=== PATIENT | female | born 1985 | race Caucasian/White ===

== ENCOUNTER 2024-08-21 10:26 | Inpatient (IN) | payer MEDICAID, SELFPAY ==
[2024-08-21 11:06] VITALS: BP 159/79; PULSE 87; RESP 18; TEMP 37; O2SAT 99
[2024-08-21 11:14] LABS: HCT 35.4 % (36.0-46.0); HGB 12.6 g/dL (11.2-15.7); MCH 33.1 pg (27.0-33.0); MCHC 35.6 % (32.0-36.0); MCV 93 fL (80-95); MPV 10.6 fL (8.0-11.0); Platelet Count 177 10^3/uL (130-400); RBC 3.81 10^6/uL (3.93-5.22); RDW 12.4 % (11.7-14.6); RDW-SD 42.5 fL; WBC 9.73 10^3/uL (4.4-10.8)
[2024-08-21 11:34] VITALS: BP 159/79; PULSE 87
--- NOTE | 2024-08-21 11:39 | HPE_ITS ---
Date of service: 08/21/24 Time of Service: 11:40 OB-HPI Labor/Delivery History of Present Illness Reason for Visit: IUFS at 39 Weeks ROSA ELENA Calculator Estimated Delivery Date Method Current WG Current Estimate 08/22/24 LMP (Certain) 39w 6d Other Estimates 08/19/24 Conception 40w 2d History of Present Expected Delivery Route/Plan Planned home with Adriennefallon [facility]ina. Specific Issues/Plan 1. AMA - Taking ASA - Recommended 39wk delivery - pt declined. 2. Migraines 3. Depression/anxiety - Sees therapist occasionally PFSH All Active Problems (Updated 08/21/24 @ 06:21 by Tereas Ray MD) demise, greater than 22 weeks, antepartum (Acute) Social History Smoking/Tobacco Use Status: Never Smoking risk assessment performed?: Yes Alcohol Intake: never Substance use type: does not use Housing: house Do you feel safe at home: Yes Do you feel safe in your relationship?: Yes History History 3 Para 1 Hx # Term Pregnancies 1 Multiple births Hx # Pregnancies Ectopic pregnancies AB induced 1 Hx Number of Living Children 1 AB spontaneous Past Pregnancies Del. Date GA/Weeks # Preg Succ Route Wgt Sex Labor Lgth Anesth esia Location Prov Complic 01/11/19 8 02/11/21 40 No Yes vaginal 7 lb 6 oz Male 20hrs Delivery Date: 01/11/19 Last Updated by: Teresa Ray MD ETOP Delivery Date: 02/11/21 Last Updated by: Teresa Ray MD Home , pushed 1.5hrs Joe Meds Allergies and Home Medications Home Medications ?Medication ?Instructions ?Recorded ?Confirmed ?Type D3 Liquid 25 mcg PO DAILY 08/21/24 08/21/24 History Danilo Nataliya 550 mg PO DAILY 08/21/24 08/21/24 History pyridoxine (vitamin B6) 50 mg 50 mg PO DAILY 08/21/24 08/21/24 History tablet riboflavin (vitamin B2) 400 mg 400 mg PO DAILY 08/21/24 08/21/24 History tablet Exam Physical Exam Vital signs: Pulse BP 87 159/79 H 08/21/24 11:34 08/21/24 11:34 Detailed Labor and Delivery Exam Stovall Score: Cervical Points Exam 0 1 2 3 Dilation Closed 1-2cm 3-4 cm 5-6cm Effacement 0-30% 40-50% 60-70% 80% Consistency Firm Medium Soft Station -3 -2 -1,0 +1,+2 Position Posterior Mid Anterior Results Abnormal Lab Findings: Abnormal Labs 08/21/24 11:05 RBC 3.81 L Hct 35.4 L MCH 33.1 H
--- NOTE | 2024-08-21 11:41 | W.PM.PROGNOT ---
Date of Service Date of service: 08/21/24 Time of Service: 11:41 Subjective Subjective Interval history since last seen: Pt did not sleep well overnight. Upset and concerned about the process that she is about to go through. Exam Narrative Exam Narrative: Pt is a Objective Last Vital Signs Pulse 87 08/21/24 11:34 BP 159/79 H 08/21/24 11:34 Laboratory Results - last 24 hr 08/21/24 11:05 WBC 9.73 RBC 3.81 L Hgb 12.6 Hct 35.4 L MCV 93 MCH 33.1 H MCHC 35.6 RDW 12.4 Plt Count 177 MPV 10.6
--- NOTE | 2024-08-21 12:00 | HPE_ITS ---
Date of service: 08/21/24 Time of Service: 12:00 Assessment and Plan Assessment and plan (1) demise, greater than 22 weeks, antepartum: Status: Acute Assessment and plan: Confirmed by bedside u/s performed on earlier today. Pt was given options for delivery and counseled that IOL with Oxytocin would be advised. We reviewed labor analgesia with pt including Nitrous Oxide and epidural. She would prefer to avoid epidural if possible. (2) Encounter for induction of labor: Status: Acute Assessment and plan: Begin Oxytocin IOL labor. Anticipate vaginal delivery. OB-HPI Labor/Delivery History of Present Illness Reason for Visit: IUFD at 39w6d EGA. Chief Complaint: Other (induction of labor for intrauterine demise at term.). ROSA ELENA Calculator Estimated Delivery Date Method Current WG Current Estimate 08/22/24 LMP (Certain) 39w 6d Other Estimates 08/19/24 Conception 40w 2d History of Present Expected Delivery Route/Plan Planned home with Adrienne Medina [facility] . ROSA ELENA 08/22/24 by LMP and known date of conception. Pt established care at 18w0d EGA. 10 visits. GBS neg. O+. cf DNA low risk for aneuploides and microdeletions. Neg STI. Last FHT 08/15/24 present at visit with practioner. Pt called provider Adrienne Medina and FHR check performed which showed no FHR. Pt evaluated on by Dr. Ray early this morning and IUFD in vtx presentation confirmed. Pt given options for care and was counseled to have IOL. She went home and presents for planned delivery of fetus. Specific Issues/Plan 1. AMA - Taking ASA. cfDNA low risk aneuploidy and microdeletions. - Recommended 39wk delivery - pt declined. 2. Migraines 3. Depression/anxiety - Sees therapist occasionally Informed Consent Informed Consent: Induction of Labor and Risk,Benefits,Alternatives Discussed (Pt counseled that pLTCS is an option but not advised.) Review of Systems Narrative: No vaginal bleeding, no trauma. All systems reviewed & are unremarkable except as noted in HPI and below Psychiatric Psychiatric: Reports anxiety (devestated by the information regarding the demise.) PFSH All Active Problems (Updated 08/21/24 @ 12:30 by Yareli Ahumada MD) Encounter for induction of labor (Acute) demise, greater than 22 weeks, antepartum (Acute) Social History (Updated 08/21/24 @ 12:30 by Yareli Ahumada MD) Smoking/Tobacco Use Status: Never Smoking risk assessment performed?: Yes Alcohol Intake: never Substance use type: does not use Household members: spouse, children and other Details: H - Mehdi, S - Joe Housing: house Number of Children: 1 Education Level: college Do you need help understanding health information?: Never current occupation: [employer]. Do you feel safe at home: Yes Do you feel safe in your relationship?: Yes History History 3 Para 1 Hx # Term Pregnancies 1 Multiple births Hx # Pregnancies Ectopic pregnancies AB induced 1 Hx Number of Living Children 1 AB spontaneous Past Pregnancies Del. Date GA/Weeks # Preg Succ Route Wgt Sex Labor Lgth Anesth esia Location Prov [facility] 01/11/19 8 02/11/21 40 No Yes vaginal 7 lb 6 oz Male 20hrs Delivery Date: 01/11/19 Last Updated by: Teresa Ray MD ETOP Delivery Date: 02/11/21 Last Updated by: Teresa Ray MD Home , pushed 1.5hrs Joe Meds Allergies and Home Medications Home Medications ?Medication ?Instructions ?Recorded ?Confirmed ?Type D3 Liquid 25 mcg PO DAILY 08/21/24 08/21/24 History Danilo Nataliya 550 mg PO DAILY 08/21/24 08/21/24 History pyridoxine (vitamin B6) 50 mg 50 mg PO DAILY 08/21/24 08/21/24 History tablet riboflavin (vitamin B2) 400 mg 400 mg PO DAILY 08/21/24 08/21/24 History tablet Exam Physical Exam Vital signs: Pulse BP 87 159/79 H 08/21/24 11:34 08/21/24 11:34 Vital Signs Reviewed: Yes Narrative: Pt reports BP elevated 2/2 anxiety. BP range nl during . Detailed Labor and Delivery Exam Dilation: 0 Effacement (%): 50 station: -1 Cervix position: mid Consistency: soft Villanueva Score: Cervical Points Exam 0 1 2 3 Dilation Closed 1-2cm 3-4 cm 5-6cm Effacement 0-30% 40-50% 60-70% 80% Consistency Firm Medium Soft Station -3 -2 -1,0 +1,+2 Position Posterior Mid Anterior VILLANUEVA Score(Cervical Ripeness Score): 5 Amniotic Membrane Status: Intact Fetus A Assessment Note: No heart tones will be monitored during IOL 2/2 demise HEENT Exam HEENT Exam: Normal Breast Exam Breast Exam: Not Done Respiratory Exam Respiratory Exam: Normal Cardiovascular Exam Cardiovascular Exam: Normal Abdominal Exam Abdominal Exam: Normal Rectal Exam Rectal Exam: Not Done Exam Exam: Normal Extremities Exam Extremities Exam: Normal Back/Spine/Pelvis Exam Back Exam: Not Done Pelvis Adequate: Yes Skin Exam Skin Exam: Normal Neurological Exam Neurological Exam: Normal Psychiatric Exam Psychiatric Exam: Normal Results Results Group Beta Strep: Negative Blood Type: O+ Rubella Status: Immune Varicella Immunity: Immune Abnormal Lab Findings: Abnormal Labs 08/21/24 11:05 RBC 3.81 L Hct 35.4 L MCH 33.1 H Risk Assessment Risk for Shoulder Dystocia Increased Risk?: No Delivery Plan @ 40 wks: aoc Risk for Post- Hemorrhage At Risk?: No Counseled re: Active Management: No (Will address plan for active management when closer to delivery ) Risks Reviewed Risks Reviewed Upon Admission: Yes
[2024-08-21] MEDS: Normal Saline Flush 10 ML SYR IVP (12:05)
[2024-08-21] MEDS: Oxytocin/Normal Saline 30 UNITS/500 ML BAG IV (12:10)
[2024-08-21] MEDS: Lactated Ringers 1,000 ML 125 ML IV ×2 (12:10→19:36)
[2024-08-21 13:32] VITALS: BP 118/79; PULSE 83
[2024-08-21] MEDS: LORazepam 1 MG TAB PO ×2 (14:12→20:34)
--- NOTE | 2024-08-21 16:00 | W.PM.OBNL1 ---
Date of service: 08/21/24 Time of Service: 16:00 Informed Consent Informed Consent: Induction of Labor and Risk,Benefits,Alternatives Discussed (Pt counseled that pLTCS is an option but not advised.) Pelvic Exam Comments: Discussed with pt if she wanted pelvic exam to assess her labor status. While she is having contractions she does not feel that she is experiencing active labor. . P Contractions Monitor Mode: External Contraction Frequency(min): q4-5 Contraction Duration(sec): 40 Intensity: Mild Assessment and Plan Assessment and plan (1) Encounter for induction of labor: Status: Acute (2) demise, greater than 22 weeks, antepartum: Status: Acute Objective Abnormal lab results 08/21/24 Range/Units 11:05 RBC 3.81 L (3.93-5.22) 10^6/uL Hct 35.4 L (36.0-46.0) % MCH 33.1 H (27.0-33.0) pg Temp Pulse Resp BP Pulse Ox 98.6 F 83 18 118/79 99 08/21/24 11:06 08/21/24 13:32 08/21/24 11:06 08/21/24 13:32 08/21/24 11:06 Laboratory Results WBC 9.73 10^3/uL (4.4-10.8) 08/21/24 11:05 RBC 3.81 10^6/uL (3.93-5.22) L 08/21/24 11:05 Hgb 12.6 g/dL (11.2-15.7) 08/21/24 11:05 Hct 35.4 % (36.0-46.0) L 08/21/24 11:05 MCV 93 fL (80-95) 08/21/24 11:05 MCH 33.1 pg (27.0-33.0) H 08/21/24 11:05 MCHC 35.6 % (32.0-36.0) 08/21/24 11:05 RDW 12.4 % (11.7-14.6) 08/21/24 11:05 Plt Count 177 10^3/uL (130-400) 08/21/24 11:05 MPV 10.6 fL (8.0-11.0) 08/21/24 11:05 ABO/Rh O Positive 08/21/24 11:05 Antibody Screen NEGATIVE 08/21/24 11:05 Vital Signs Reviewed: Yes Objective Narrative Objective Narrative: Pt received a dose of Ativan for increased anxiety. Results Hemoglobin/Hematocrit: Hgb 12.6 g/dL (11.2-15.7) 08/21/24 11:05 Hct 35.4 % (36.0-46.0) L 08/21/24 11:05 Abnormal Lab Findings: Abnormal Labs 08/21/24 11:05 RBC 3.81 L Hct 35.4 L MCH 33.1 H
--- NOTE | 2024-08-21 18:27 | W.PM.OBNL1 ---
Date of service: 08/21/24 Time of Service: 18:27 Informed Consent Informed Consent: Induction of Labor and Risk,Benefits,Alternatives Discussed (Pt counseled that pLTCS is an option but not advised.) Pelvic Exam Dilation: 20 Effacement (%): 70 station: 0 Cervix Position: posterior Consistency: soft Vaginal Exam Presentation: Cephalic Contractions Contraction Frequency(min): q 2-3 Contraction Duration(sec): 50sec Intensity: Mild/Moderate Assessment and Plan Assessment and plan (1) Encounter for induction of labor: Status: Acute Assessment and plan: Plan to continue oxytocin infusion at 18mu/min. When pt achieves SVE 4-5cm dilation with AROM. (2) demise, greater than 22 weeks, antepartum: Status: Acute Qualifiers: Fetus number: single or unspecified fetus Qualified Code(s): O36.4XX0 - Maternal care for intrauterine , not applicable or unspecified Objective Abnormal lab results 08/21/24 Range/Units 11:05 RBC 3.81 L (3.93-5.22) 10^6/uL Hct 35.4 L (36.0-46.0) % MCH 33.1 H (27.0-33.0) pg Temp Pulse Resp BP Pulse Ox 98.6 F 83 18 118/79 99 08/21/24 11:06 08/21/24 13:32 08/21/24 11:06 08/21/24 13:32 08/21/24 11:06 Laboratory Results WBC 9.73 10^3/uL (4.4-10.8) 08/21/24 11:05 RBC 3.81 10^6/uL (3.93-5.22) L 08/21/24 11:05 Hgb 12.6 g/dL (11.2-15.7) 08/21/24 11:05 Hct 35.4 % (36.0-46.0) L 08/21/24 11:05 MCV 93 fL (80-95) 08/21/24 11:05 MCH 33.1 pg (27.0-33.0) H 08/21/24 11:05 MCHC 35.6 % (32.0-36.0) 08/21/24 11:05 RDW 12.4 % (11.7-14.6) 08/21/24 11:05 Plt Count 177 10^3/uL (130-400) 08/21/24 11:05 MPV 10.6 fL (8.0-11.0) 08/21/24 11:05 ABO/Rh O Positive 08/21/24 11:05 Antibody Screen NEGATIVE 08/21/24 11:05 Subjective Patient Reports: New Complaints (increasing intensity of contractions. requesting cervical exam.) Interval history since last seen: Oxytocin infusion 18mu/min. Pt reports H/A, relieved with ASA. Results Hemoglobin/Hematocrit: Hgb 12.6 g/dL (11.2-15.7) 08/21/24 11:05 Hct 35.4 % (36.0-46.0) L 08/21/24 11:05 Abnormal Lab Findings: Abnormal Labs 08/21/24 11:05 RBC 3.81 L Hct 35.4 L MCH 33.1 H
[2024-08-21 19:15] VITALS: RESP 16; TEMP 37.4
[2024-08-21 19:27] VITALS: BP 127/61; PULSE 75
[2024-08-21 22:47] VITALS: BP 129/72; PULSE 82; TEMP 36.9
[2024-08-22] VITALS (83 sets, daily range): BP systolic 86–139; BP diastolic 49–80; PULSE 0–122; RESP 16–20; TEMP 36.6–36.7; O2SAT 97–100
--- NOTE | 2024-08-22 00:02 | W.PM.OBNL1 ---
Date of service: 08/22/24 Time of Service: 00:03 Informed Consent Informed Consent: Induction of Labor and Risk,Benefits,Alternatives Discussed (Pt counseled that pLTCS is an option but not advised.) Contractions Monitor Mode: External Contraction Frequency(min): 3-4 Contraction Duration(sec): 50 Intensity: Mild/Moderate Assessment and Plan Assessment and plan (1) Encounter for induction of labor: Status: Acute Assessment and plan: Discussion with pt regarding plan for analgesia. She does not feel that she requires an epidural at this time. She is open to regional analgesia if needed. I see no reason to increase concetration of Oxytocin since her contractions are regular. She has received two doses of Ativan and is resting. The plan is to continue Oxytocin and once her cervix is more dilated to proceed with AROM. Objective Abnormal lab results 08/21/24 Range/Units 11:05 RBC 3.81 L (3.93-5.22) 10^6/uL Hct 35.4 L (36.0-46.0) % MCH 33.1 H (27.0-33.0) pg Temp Pulse Resp BP Pulse Ox 98.4 F 82 16 129/72 99 08/21/24 22:47 08/21/24 22:47 08/21/24 19:15 08/21/24 22:47 08/21/24 11:06 Laboratory Results WBC 9.73 10^3/uL (4.4-10.8) 08/21/24 11:05 RBC 3.81 10^6/uL (3.93-5.22) L 08/21/24 11:05 Hgb 12.6 g/dL (11.2-15.7) 08/21/24 11:05 Hct 35.4 % (36.0-46.0) L 08/21/24 11:05 MCV 93 fL (80-95) 08/21/24 11:05 MCH 33.1 pg (27.0-33.0) H 08/21/24 11:05 MCHC 35.6 % (32.0-36.0) 08/21/24 11:05 RDW 12.4 % (11.7-14.6) 08/21/24 11:05 Plt Count 177 10^3/uL (130-400) 08/21/24 11:05 MPV 10.6 fL (8.0-11.0) 08/21/24 11:05 ABO/Rh O Positive 08/21/24 11:05 Antibody Screen NEGATIVE 08/21/24 11:05 Vital Signs Reviewed: Yes Objective Narrative Objective Narrative: Vaginal exam deferred. Results Hemoglobin/Hematocrit: Hgb 12.6 g/dL (11.2-15.7) 08/21/24 11:05 Hct 35.4 % (36.0-46.0) L 08/21/24 11:05 Abnormal Lab Findings: Abnormal Labs 08/21/24 11:05 RBC 3.81 L Hct 35.4 L MCH 33.1 H
[2024-08-22] MEDS: Lactated Ringers 1,000 ML 125 ML IV (03:15)
[2024-08-22] MEDS: FentaNYL/ROPIvacaine 2 mcg/ml and 0.1% 200 ML CADD Cassette EP (08:45)
--- NOTE | 2024-08-22 09:09 | W.ANESNEU ---
Epidural/Spinal Catheter Date Performed: 08/22/24 Procedure Start: 08:02 Procedure Stop: 08:35 Requesting Provider: Yareli Ahumada Procedure Location: Obstetrics Reason Performed: Labor Epidural Standard Monitors Applied: Blood Pressure, SpO2 and See EMR for corresponding vital signs Patient Position: Sitting Sedation Given (Indicate Dose Given): No Sedation given Patient Mental Status: Awake Sterility: Hand Hygiene, Surgical Cap, Surgical Mask, Sterile Gloves, Sterile Drape/Sheet, Eye Protection and Chlorhexidine Procedure Location: L4-L5 Interspace Epidural Needle: Tuohy 17 Guage Needle Length: 3.5 Inch Needle Approach: Midline Epidural Procedure: Skin Prepped, Sterile Drape Placed, 1% Lidocaine to skin and subcutaneous tissue with 25G needle, Tuohy Needle placed, AMIE to Saline Used, Epidural Catheter Placed, Negative Heme, Negative CSF Flow and Tuohy Needle Removed Catheter Placed?: Catheter Placed Test Dose (Indicate Dose Given): 3ml 1.5% Lidocaine with 1:200K Epinephrine Given and Negative Test Dose Loss of Resistance Depth (cm): 5 Catheter depth at skin (cm): 12 Dressing: Sorbaview Dressing Placed, Mastisol Used and Dressing reinforced with Tape Epidural Provider Bolus (Indicate Dose Given): None Given Additives (Indicate Dose Given ): None Infusion Medication: Medication Infusion Began Medication Infusion: Ropivacaine 0.1% with Fentanyl 2mcg/ml Maintenance Infusion Rate (ml/hour): 10 PCEA Bolus Dose (ml): 5 Block Level: T7 Paresthesia: None Ultrasound: Not Used Number of Attempts (See previous attempts in note section): 2 Procedure Tolerated: Patient tolerated well and Other (Mild hypotension, resolved with 10mg ephedrine IV ) Procedure Outcome: Successful Procedure Comment:: Epidural placed successfully, two attempts. First attempt - needle and catheter placed without concern at L3/4 inter-space, catheter threaded, upon removing syringe heme back flow appreciated in catheter, catheter retracted 2cm, flushed with saline, line cleared and aspirated which was negative for heme, test dose administered with appreciable increase to heart rate interpreted as positive test dose. Catheter removed. Second attempt at L4/5, catheter placed without complication, s/p test negative test dose. Patient with hypotension 80s/40s, reports lightheadedness. Patient placed supine and given 10mg of Ephedrine IV with resolution of hypotension and no recurrence . Otherwise patient tolerated procedure well and reports increased comfort s/p epidural placement and infusion. Performed By: Eber Oviedo Supervised By: Josesito Shin
[2024-08-22] MEDS: Ondansetron 4 MG/2 ML VIAL IVP (10:31)
--- NOTE | 2024-08-22 11:19 | W.PM.OBNL1 ---
Date of service: 08/22/24 Time of Service: 11:19 Informed Consent Informed Consent: Induction of Labor and Risk,Benefits,Alternatives Discussed (Pt counseled that pLTCS is an option but not advised.) Assessment and Plan Assessment and plan (1) demise, greater than 22 weeks, antepartum: Status: Acute Qualifiers: Fetus number: single or unspecified fetus Qualified Code(s): O36.4XX0 - Maternal care for intrauterine , not applicable or unspecified (2) Encounter for induction of labor: Status: Acute Assessment and plan: Continue labor induction. Risks of delivery, placental delivery, and care all explained to the patient. Chart and labs reviewed. Patient is anticipating vaginal with taking baby home for home burial. technical services specialist is involved for assistance in aftercare as patient desires. Objective Temp Pulse Resp BP Pulse Ox 97.9 F 0 L 16 124/70 98 08/22/24 08:00 08/22/24 11:18 08/22/24 10:15 08/22/24 10:54 08/22/24 10:24 Laboratory Results WBC 9.73 10^3/uL (4.4-10.8) 08/21/24 11:05 RBC 3.81 10^6/uL (3.93-5.22) L 08/21/24 11:05 Hgb 12.6 g/dL (11.2-15.7) 08/21/24 11:05 Hct 35.4 % (36.0-46.0) L 08/21/24 11:05 MCV 93 fL (80-95) 08/21/24 11:05 MCH 33.1 pg (27.0-33.0) H 08/21/24 11:05 MCHC 35.6 % (32.0-36.0) 08/21/24 11:05 RDW 12.4 % (11.7-14.6) 08/21/24 11:05 Plt Count 177 10^3/uL (130-400) 08/21/24 11:05 MPV 10.6 fL (8.0-11.0) 08/21/24 11:05 ABO/Rh O Positive 08/21/24 11:05 Antibody Screen NEGATIVE 08/21/24 11:05 Subjective Interval history since last seen: Patient seen with her , and home registered midwife. We spent approximately 40 minutes in conversation regarding the grief process, the delivery process, further surveillance. All questions regarding her care, delivery, and ongoing health discussed at length. At this point, we will continue Pitocin augmentation. She is comfortable with her epidural. She declines cervical examination at this point. Will continue to monitor for progress and change. She hopes for a gentle . She does not wish baby to be delivered to her immediately. She is also requesting time to process all of the events. All of her questions were answered to the best of my ability today. Results Hemoglobin/Hematocrit: Hgb 12.6 g/dL (11.2-15.7) 08/21/24 11:05 Hct 35.4 % (36.0-46.0) L 08/21/24 11:05 Abnormal Lab Findings: Abnormal Labs 08/21/24 11:05 RBC 3.81 L Hct 35.4 L MCH 33.1 H
--- NOTE | 2024-08-22 13:31 | W.PM.OBNL1 ---
Date of service: 08/22/24 Time of Service: 13:31 Informed Consent Informed Consent: Induction of Labor and Risk,Benefits,Alternatives Discussed (Pt counseled that pLTCS is an option but not advised.) Assessment and Plan Assessment and plan (1) demise, greater than 22 weeks, antepartum: Status: Acute Assessment and plan: demise at 39 weeks 6 days. Labor induction today. Pitocin is at 20. Patient far more uncomfortable despite epidural. Declined cervical examination at this point. Appears to be near to delivery. All questions answered. Support given Qualifiers: Fetus number: single or unspecified fetus Qualified Code(s): O36.4XX0 - Maternal care for intrauterine , not applicable or unspecified (2) Encounter for induction of labor: Status: Acute Objective Temp Pulse Resp BP Pulse Ox 97.9 F 0 L 16 121/67 98 08/22/24 08:00 08/22/24 12:54 08/22/24 11:00 08/22/24 12:24 08/22/24 10:24 Laboratory Results WBC 9.73 10^3/uL (4.4-10.8) 08/21/24 11:05 RBC 3.81 10^6/uL (3.93-5.22) L 08/21/24 11:05 Hgb 12.6 g/dL (11.2-15.7) 08/21/24 11:05 Hct 35.4 % (36.0-46.0) L 08/21/24 11:05 MCV 93 fL (80-95) 08/21/24 11:05 MCH 33.1 pg (27.0-33.0) H 08/21/24 11:05 MCHC 35.6 % (32.0-36.0) 08/21/24 11:05 RDW 12.4 % (11.7-14.6) 08/21/24 11:05 Plt Count 177 10^3/uL (130-400) 08/21/24 11:05 MPV 10.6 fL (8.0-11.0) 08/21/24 11:05 ABO/Rh O Positive 08/21/24 11:05 Antibody Screen NEGATIVE 08/21/24 11:05 Subjective Interval history since last seen: Patient seen, significantly more uncomfortable after position change, voiding, and side-lying. Declines cervical examination at this point. Vital signs are stable. Appears to be transitioning to fully dilated. Would anticipate onset of second stage soon. Results Hemoglobin/Hematocrit: Hgb 12.6 g/dL (11.2-15.7) 08/21/24 11:05 Hct 35.4 % (36.0-46.0) L 08/21/24 11:05 Abnormal Lab Findings: Abnormal Labs 08/21/24 11:05 RBC 3.81 L Hct 35.4 L MCH 33.1 H
--- NOTE | 2024-08-22 14:02 | W.PM.OBNL1 ---
Date of service: 08/22/24 Time of Service: 14:02 Informed Consent Informed Consent: Induction of Labor and Risk,Benefits,Alternatives Discussed (Pt counseled that pLTCS is an option but not advised.) Objective Temp Pulse Resp BP Pulse Ox 97.9 F 81 16 117/57 L 98 08/22/24 08:00 08/22/24 13:54 08/22/24 11:00 08/22/24 13:54 08/22/24 10:24 Laboratory Results WBC 9.73 10^3/uL (4.4-10.8) 08/21/24 11:05 RBC 3.81 10^6/uL (3.93-5.22) L 08/21/24 11:05 Hgb 12.6 g/dL (11.2-15.7) 08/21/24 11:05 Hct 35.4 % (36.0-46.0) L 08/21/24 11:05 MCV 93 fL (80-95) 08/21/24 11:05 MCH 33.1 pg (27.0-33.0) H 08/21/24 11:05 MCHC 35.6 % (32.0-36.0) 08/21/24 11:05 RDW 12.4 % (11.7-14.6) 08/21/24 11:05 Plt Count 177 10^3/uL (130-400) 08/21/24 11:05 MPV 10.6 fL (8.0-11.0) 08/21/24 11:05 ABO/Rh O Positive 08/21/24 11:05 Antibody Screen NEGATIVE 08/21/24 11:05 Subjective Interval history since last seen: Patient seen. Feeling contractions more intensely. Vital signs are stable. Cervical examination per midwifery service is an anterior lip with a bulging bag of water. Would anticipate second stage soon. Preparations in progress. All questions answered. Results Hemoglobin/Hematocrit: Hgb 12.6 g/dL (11.2-15.7) 08/21/24 11:05 Hct 35.4 % (36.0-46.0) L 08/21/24 11:05 Abnormal Lab Findings: Abnormal Labs 08/21/24 11:05 RBC 3.81 L Hct 35.4 L MCH 33.1 H
--- NOTE | 2024-08-22 14:40 | W.PM.OBNL1 ---
Date of service: 08/22/24 Time of Service: 14:40 Informed Consent Informed Consent: Induction of Labor and Risk,Benefits,Alternatives Discussed (Pt counseled that pLTCS is an option but not advised.) Objective Temp Pulse Resp BP Pulse Ox 97.9 F 81 20 117/57 L 98 08/22/24 08:00 08/22/24 13:54 08/22/24 13:00 08/22/24 13:54 08/22/24 10:24 Laboratory Results WBC 9.73 10^3/uL (4.4-10.8) 08/21/24 11:05 RBC 3.81 10^6/uL (3.93-5.22) L 08/21/24 11:05 Hgb 12.6 g/dL (11.2-15.7) 08/21/24 11:05 Hct 35.4 % (36.0-46.0) L 08/21/24 11:05 MCV 93 fL (80-95) 08/21/24 11:05 MCH 33.1 pg (27.0-33.0) H 08/21/24 11:05 MCHC 35.6 % (32.0-36.0) 08/21/24 11:05 RDW 12.4 % (11.7-14.6) 08/21/24 11:05 Plt Count 177 10^3/uL (130-400) 08/21/24 11:05 MPV 10.6 fL (8.0-11.0) 08/21/24 11:05 ABO/Rh O Positive 08/21/24 11:05 Antibody Screen NEGATIVE 08/21/24 11:05 Subjective Interval history since last seen: Patient seen. Painful contractions with some rectal pressure. Patient denies that she has involuntary urge to push. She is fearful of the pushing process. Reassurance was given. Vital signs are stable. Anticipate second stage soon. Results Hemoglobin/Hematocrit: Hgb 12.6 g/dL (11.2-15.7) 08/21/24 11:05 Hct 35.4 % (36.0-46.0) L 08/21/24 11:05 Abnormal Lab Findings: Abnormal Labs 08/21/24 11:05 RBC 3.81 L Hct 35.4 L MCH 33.1 H
--- NOTE | 2024-08-22 16:02 | PLAC_PTH ---
PATIENT: Sultana Driver LOC: OBS U#:[id number] AGE/SX: 39/F ROOM: OBS.300 RE08/21/[address]: Yareli Ahumada : 1985 BED: A DIS: 08/23/2024 SPEC #: [id number] RECD: 08/27/24 12:47 STATUS: CHAI REQ #: [id number] TAMIE: 08/22/24 16:[address]: Yareli Ahumada DEPT: Surgical Specimen RECD BY: Chante Ferreira ENTERED: 08/27/24 12:48 SP TYPE: PLAC OTHR DR: Unknown,Unknown Tissues: 1 - PLACENTA (3RD TRIMESTER) Procedures: GROSS AND MICRO LEVEL 5 Comments: [id number]
[2024-08-22] MEDS: Ibuprofen 600 MG TAB (16:30)
[2024-08-22] MEDS: Acetaminophen 325 MG TAB (16:30)
--- NOTE | 2024-08-22 16:47 | OBVDS_ITS ---
Date of service: 09/18/24 Time of Service: 16:47 OB Labor/ Delivery Information Baby A Delivery Delivery Method: Spontaneaous Presentation: Cephalic Cord Description-Baby A: 3 Vessels, Nuchal Cord and Tight (x2 and body c ord) Amniotic Fluid: Clear Estimated Blood Loss: 100 Delivery Outcome: Stillborn Note: Patient progressed to the point that she was completely dilated after spontaneous rupture of membranes for blood-tinged fluid. With good maternal effort, she pushed the vertex over intact perineum. At the time of delivery, clearly there was no tone. There was nuchal cord x 2 which was tight and delivered through. At the shoulders followed with ease. The remainder of the body was delivered. Three-vessel cord was noted clamped x 2 and cut. Patient received Pitocin for uterine tonicity and had spontaneous delivery in the Hernandez position of an intact placenta. Examination of baby and placenta followed. Placenta was intact with normal-appearing membranes and a three- vessel cord. The infant was a infant with no apparent abnormalities. Working diagnosis would be cord accident. Qualitative blood loss was 100 mL. Mom is stable postdelivery. Baby remains in room for patient and to view, hold, weight and measurement will follow. Providers Doctor: Mildred Rodriguez Guest Experience Specialist: Josesito Shin Nurse: Lisa Munson Labor/Delivery Information Number of Babies in Womb: 1 Steroids Given: None Reason Steroids Not Administered: N/A Group Beta Strep: N/A Antibiotics Administered: No Rubella Status: Immune Blood Type: O+ Varicella Immunity: Immune Maternal Complications: Other Shoulder Dystocia: No Stages of Labor Onset of Labor Date: 08/22/24 Onset of Labor Time: 05:00 ROM Baby A: 08/22/24 ROM Baby A: 15:12 ROM Total Time- Baby A: [id number] Delivery Date-Baby A: 08/22/24 Delivery Time-Baby A: 15:54 Placenta Delivery Date-Baby A: 08/22/24 Placenta Delivery Time-Baby A: 16:02 Labor-Stage 3 Duration: 8 minutes Total Length of Labor-Baby A: 10 hours and 54 minutes Placenta Cultured: Yes Placenta Status: Delivered Baby A Infant Gender: Female Gestational Age in Weeks/Days: 40 Weeks and 0 Days
--- NOTE | 2024-08-22 19:11 | NUR.NOTE ---
This RN spoke with Jalyn at [facility] case #[id number]. Per Jalyn, they are declining at this time. Nursing Note:
[2024-08-22] MEDS: Ibuprofen 600 MG TAB PO (22:10)
[2024-08-22] MEDS: Acetaminophen 325 MG TAB 650 MG PO (22:10)
[2024-08-23 04:00] VITALS: BP 134/74; PULSE 78; RESP 18; TEMP 36.8; O2SAT 99
[2024-08-23] MEDS: Ibuprofen 600 MG TAB PO ×2 (05:09→11:00)
[2024-08-23] MEDS: Acetaminophen 325 MG TAB 650 MG PO ×2 (05:09→11:06)
--- NOTE | 2024-08-23 07:38 | W.PM.OBPNV1 ---
Date of service: 08/23/24 Time of Service: 07:39 Assessment and Plan Assessment and plan (1) Vaginal delivery: Status: Acute Assessment and plan: day #1 status post labor induction and vaginal delivery of a term stillbirth. No indication for reason for demise other than cord entanglement. Baby appears appropriately grown, anatomically normal. Placenta will be sent for examination. Family declined postmortem examination. Burial will be at home. She will be discharged home today with close follow-up and support. She will be seen back in the office as needed but no later than 2 weeks from now. Her supervisor pigment making will also engage in her care. Prescriptions for ibuprofen and small prescription for Ativan sent to the pharmacy. (2) demise, greater than 22 weeks, antepartum: Status: Acute Qualifiers: Fetus number: single or unspecified fetus Qualified Code(s): O36.4XX0 - Maternal care for intrauterine , not applicable or unspecified Subjective Subjective Interval history: Patient seen and examined this morning. Long conversation regarding the events of her , labor, , follow-up care, care. All of her questions were answered. Patient is planning on discharge home today. She and her will take their baby for burial at home. She will have instructions. We discussed the fact that her milk will come in shortly and strategies for medication. She will be seen back in the office in approximately 2 weeks time. Support was given Patient's Mood: Appropriately sad baby status: Stillbirth Exam Physical Exam Vital signs: Temp Pulse Resp BP Pulse Ox 98.2 F 78 18 134/74 99 08/23/24 04:00 08/23/24 04:00 08/23/24 04:00 08/23/24 04:00 08/23/24 04:00 Vital Signs Reviewed: Yes Constitutional Constitutional: no acute distress Comments: Appropriately grieving HEENT Exam HEENT Exam: Normal Respiratory Exam Respiratory Exam: Normal Cardiovascular Exam Cardiovascular Exam: Normal Abdominal Exam Comments: Soft, nontender Fundal Exam Fundus: Below Umbilicus and Firm Extremities Exam Extremity Exam: Normal Skin Exam Skin Exam: Normal Neurological Exam Neurological Exam: Normal Psychiatric Exam Psychiatric Exam: Normal Results Hemoglobin/Hematocrit: Hgb 12.6 g/dL (11.2-15.7) 08/21/24 11:05 Hct 35.4 % (36.0-46.0) L 08/21/24 11:05 Abnormal Lab Findings: Abnormal Labs 08/21/24 11:05 RBC 3.81 L Hct 35.4 L MCH 33.1 H
[2024-08-23 07:40] VITALS: BP 127/84; PULSE 75; RESP 16; TEMP 37; O2SAT 98
--- NOTE | 2024-08-23 07:48 | DSE_ITS ---
Date of service: 08/23/24 Time of Service: 07:48 DS: Diagnosis Discharge Diagnosis (1) Vaginal delivery: Status: Acute Asessment and Plan: day #1 status post labor induction for term stillbirth. Physically doing well. Emotionally grieving appropriately. Will follow-up in the office in 2 weeks. Support given. Patient's home licensing services clerk will continue to follow patient at home. Prescriptions for ibuprofen and Ativan sent to the pharmacy. All questions answered. Awaiting placental pathology (2) demise, greater than 22 weeks, antepartum: Status: Acute Discharge Plan Disposition Patient Disposition: Home Condition: Good Discharge Details Reason For Visit: IUFD at 39w6d EGA. Admit Date/Time: 08/21/24 10:26 Admit Provider: Yareli Ahumada Attending Provider: Yareli Ahumada Primary Care Provider: Unknown,Unknown Hospital Course Hospital Course: Patient has been under the care of home licensing services clerk throughout her . She had a decrease in movement and contact her licensing services clerk. There were no appreciable heart tones. She was brought to the hospital for evaluation. She was initially seen by our service which diagnosed demise. She had time to consider her options and Ryan presented for labor induction. She received Pitocin for labor induction. Over the course of approximately 24 hours she progressed to the point that she was completely dilated. She did have an epidural for pain control after using hydrotherapy in the tub. She went on to the point of delivery with good maternal effort she delivered a stillborn female over an intact perineum. There was evidence of tight nuchal cord x 2 and a body cord which appeared to be contributing to the demise. Placenta delivered spontaneously and was noted to be intact and looking appropriate. There was no abnormality in placentation or cord insertion that could be assessed. Placenta will be for examination. Baby will be taken home for home burial. Patient is doing well in the period. She is grieving appropriately. She is accepting of supportive care. Her pain is well- controlled. Her lochia is physiologic. We did discuss strategies to mitigate milk production. Home Meds and New Rx's Prescriptions: New ibuprofen 800 mg tablet 800 mg PO Q8H PRNQty: 45 1RF lorazepam [Ativan] 0.5 mg tablet 0.5 mg PO TID PRNQty: 10 0RF No Action Danilo Nataliya 550 mg PO DAILY pyridoxine (vitamin B6) 50 mg tablet 50 mg PO DAILY D3 Liquid 25 mcg PO DAILY riboflavin (vitamin B2) 400 mg tablet 400 mg PO DAILY Discharge Instructions Care Plan Goals: Ibuprofen, 800 mg 1 orally every 8 hours as needed for pain. Alternate with Tylenol, 1000 mg every 6 hours as needed pain. Minimal breast stimulation. Cool compresses to the breast. Pelvic rest until seen in the office. Activity:: Pelvic rest Equipment/Supplies:: No Equipment Needed Diet:: As Tolerated Discharge Orders Discharge Orders: Discharge Order (Routine); Ordered 08/23/24 Ordered By: Mildred Rodriguez OB:DS Summary Summary Vaginal Delivery Method: Spontaneaous Episiotomy Description: None Laceration Description: None Laceration Extension: N/A Contraception Discussed Contraception Discussed: No, [place] Infant Gender-Baby A: Female weight: 7 lb 6.697 oz Status at Discharge Functional status at discharge: independent ambulation Overall status at discharge: patient is progressing back to baseline Mental Status: mental status grossly normal Speech and Movement: speech and movement normal Mood: congruent mood Affect: normal affect Quality:SDOH Health Related Social Needs: No Data to Display Exam Physical Exam Vital signs: Temp Pulse Resp BP Pulse Ox 98.2 F 78 18 134/74 99 08/23/24 04:00 08/23/24 04:00 08/23/24 04:00 08/23/24 04:00 08/23/24 04:00 Constitutional Comments: See physical exam from progress note dated 08/23/2024 PFSH All Active Problems Vaginal delivery (Acute) 08/22/2024. Term stillbirth. Labor induction demise, greater than 22 weeks, antepartum (Acute) Full-term demise Social History Smoking/Tobacco Use Status: Never Smoking risk assessment performed?: Yes Alcohol Intake: never Substance use type: does not use Household members: spouse, children and other Details: H - Mehdi, S - Joe Housing: house Number of Children: 1 Education Level: college Do you need help understanding health information?: Never current occupation: [employer]. Do you feel safe at home: Yes Do you feel safe in your relationship?: Yes History History 3 Para 1 Hx # Term Pregnancies 1 Multiple births Hx # Pregnancies Ectopic pregnancies AB induced 1 Hx Number of Living Children 1 AB spontaneous Past Pregnancies Del. Date GA/Weeks # Preg Succ Route Wgt Sex Labor [facility] 02/11/21 40 No Yes vaginal 7 lb 6 oz Male 20hrs Delivery Date: 01/11/19 Last Updated by: Teresa Ray MD ETOP Delivery Date: 02/11/21 Last Updated by: Teresa Ray MD Home , pushed 1.5hrs Joe DS: Data Vitals/I&O Vitals and I&O: Vital Signs Temperature 98.2 F 08/23/24 04:00 Temperature Source Oral 08/23/24 04:00 Pulse 78 08/23/24 04:00 Pulse Rhythm Regular 08/22/24 20:54 Respiratory Rate 18 08/23/24 04:00 Blood Pressure 134/74 08/23/24 04:00 Blood Pressure Mean 94 08/23/24 04:00 Pulse Oximetry 99 08/23/24 04:00 Oxygen Delivery Method Room Air 08/21/24 11:06 Oxygen Flow Rate 0 08/21/24 11:06 Pain Level 3 08/22/24 20:54 Comment Pt requests to left alone for several hours to try to sleep. Vital signs WNL. 08/21/24 22:49 Intake & Output 08/22/24 08/22/24 08/23/24 11:59 23:59 11:59 Intake Total 1911.50 / 3825.00 956.25 / 3825.00 1911.50 / 1911.50 Output Total 2400 / 2400 1000 / 1000 Balance 1911.50 / 1425.00 -1443.75 / 1425.00 912.50 / 912.50 Intake: IV 1911.50 / 3825.00 956.25 / 3825.00 50 / 1911.50 Output: Urine 2400 / 2400 1000 / 1000 Other: Urine Color Yellow Light Callie Urine Appearance Clear Urine Odor None Comment Up to bedside commode with assist from RN and support people
--- NOTE | 2024-08-23 14:03 | W.ANESPOSTOP ---
Postoperative Evaluation Date, Time and Location Date Performed: 08/23/24 Time Performed: 12:01 Patient Location: Obstetrics Vital Signs Most Recent Imported Vital Signs: Most Recent Vital Signs Temp Pulse Resp BP Pulse Ox 37.0 C 75 16 127/84 98 08/23/24 07:40 08/23/24 07:40 08/23/24 07:40 08/23/24 07:40 08/23/24 07:40 Pain Score Most Recent Pain Score: Most Recent Pain Score Pain Level [Abdomen] 3 08/22/24 20:54 Pain Level 3 08/23/24 11:06 Assessment Mental Status: Awake (Alert & Oriented to Patient Baseline) Airway and Respiratory Function: Patent airway with normal (patient baseline) respiratory exam Cardiovascular Function: Hemodynamically Stable Hydration Status: Adequately Hydrated Nausea & Vomiting: No Nausea or Vomiting Pain: Pain is tolerable per patient Peripheral Nerve Block: Patient did not receive a nerve block Postoperative Comments:: Per OB RN, patient is requesting to not see any more providers and just go home. Honored patient's wishes and obtained report from nurses.
== END 2024-08-23 12:15 | disposition home or self-care (01) | DRG 806 ==
PROVIDERS: Admitting Provider Obstetrics & Gynecology Gynecology; Visit Provider Obstetrics & Gynecology Gynecology
DX: O36.4XX0 Maternal care for intrauterine death, not applicable or unspecified (principal); O99.354 Diseases of the nervous system complicating childbirth; Z37.1 Single stillbirth; Z3A.40 40 weeks gestation of pregnancy; F41.8 Other specified anxiety disorders; G43.909 Migraine, unspecified, not intractable, without status migrainosus; O99.344 Other mental disorders complicating childbirth
CPT/HCPCS: 85027; 86850; 86900; 86901; 88307; J2405

== ENCOUNTER 2024-09-03 18:04 | Outpatient (CLI) | payer MEDICAID, SELFPAY ==
--- OUTSIDE RECORDS SUMMARY | 2024-09-03 18:06 | XMS_ITS | Encounter Summary ---
Author Organization [facility] Address [address] [place] [address] Care Team Providers Care Apprentice Embalmer Name Role Phone Mauricio Solomon ND Primary Care Provider + Encounter Details Date Type Department Care Team (Late st Contact Info) Description 08/27/2024 Lab Requisition [facility] Pathology & Laboratory Medicine - [facility] [address] [place] [address] Mildred Rodriguez [address] [place] [address] [place] [phone] Maternal care for intrauterine , not applicable or unspecified Social History Tobacco Use Types Packs/Day Years Used Date Smoking Tobacco: Never Passive Smoke Exposure: Current Smokeless Tobacco: Never Passive Exposure Comments:pa rtner smokes outside, mother smoked when pt was child Interpersonal Safety Answer Date Record ed Physically Hurt Never 02/18/2021 Verbally Threaten Not on file 02/18/2021 Comments Yes Sex and Gender Information Value Date Recorded Sex Assigned at Not on file Gender Identity Female 01/29/2024 13:24 EDT Sexual Orientation Not on file documented as of this encounter Plan of Treatment Upcoming Encounters Date Type Department Care Team (Late st Contact Info) Description 11/18/2024 15:15 EST Telemedicine [facility] Neurology - [address] [id number] Tracy Fuller, SHADE BANDER 1 [facility], Level [address] [place] [phone] Pending Results Name Type Priority Associated Diagnoses Date /Time SURGICAL PATHOLOGY Pathology Today Maternal care for intrauterine , not applicable or unspecified 08/22/2024 16:02 EDT documented as of this encounter Visit Diagnoses Diagnosis Maternal care for intrauterine , not applicable or unspecified documented in this encounter Care Teams Apprentice Embalmer Relationship Specialty Start Date End Date Mauricio Solomon ND [address] [place] [address],[address] [place] [phone] PCP - General 01/29/24 documented as of this encounter
--- OUTSIDE RECORDS SUMMARY | 2024-09-03 18:06 | XMS_ITS | Encounter Summary ---
Author Organization [facility] Address [address] [place] [address] Care Team Providers Care Associate Director Of Development Name Role Phone Mauricio Solomon ND Primary Care Provider + Reason for Visit * Reason Comments Nasal Congestion Encounter Details Date Type Department Care Team (Late st Contact Info) Description 03/06/2024 13:30 EDT Walk-In [facility] [address] [place] [id number] Keith Malcolm NP [address] [facility] [address] [place], [place] [id number] Rhinosinusitis (Primary Dx) Social History Tobacco Use Types Packs/Day Years [...] on file documented as of this encounter Last Filed Vital Signs Vital Sign Reading Time Taken Comments Blood Pressure 116/76 03/06/2024 1343 EDT Pulse 88 03/06/2024 1343 EDT Temperature 37.1 ??C (98.7 ??F) 03/06/2024 1343 EDT Respiratory Rate 18 03/06/2024 1343 EDT Oxygen Saturation 98% 03/06/2024 1343 EDT Inhaled Oxygen Concentration - - Weight - - Height - - Body Mass Index - - documented in this encounter Patient Instructions * Attachments The following attachments cannot be sent through Care Everywhere. * Sinusitis: Acute (Cameroonian) documented in this encounter Ordered Prescriptions Prescription Sig Dispensed Refills Start Date End Da te amoxicillin-clavulanate (AUGMENTIN) 875-125 mg per tabletIndications:Rhinosi nusitis Take 1 Tablet by mouth 2 times daily for 7 days. 14 Tablet 03/06/2024 03/13/2024 documented in this encounter Progress Notes * Teresa Gutierrez RN - 03/06/2024 1330 EDT CC/HPI: Patient presents with nasal congestion x 2 days, headaches, face, and teeth pain. She had flu like symptoms 2 week prior and was starting to feel better. She is 15 weeks . Covid Screening: In the last 72 hours, has the patient had: New or unusual cough, shortness of breath, new nasal congestion, sore throat, fever, chills, body aches, or new loss of taste or smell without a reasonable alternative diagnosis*? (If yes, assign to ARC)- In the past 10 days, has the patient had a positive Covid test OR a confirmed close Covid exposure (<6ft for > 15mins in 24hr period)? (if yes, assign to ARC, regardless of vaccination status)- *may be determined by RN or in discussion with available provider (BELT PRESS OPERATOR's and CCA's can defer to Charge Nurse to complete triage when appropriate) PCP: Mauricio Solomon * Keith Malcolm NP - 03/06/2024 1330 EDT [facility] Chief Complaint(s): Nasal Congestion Assessment & Plan: 1. Rhinosinusitis Sultana is a pleasant 38-year-old female, 15 weeks , presenting with acute rhinosinusitis. Clinically, she has a left maxillary ABRS. UTD guidelines are that Augmentin is widely used for URIs in people. She denies any known risks for pre-term delivery. Continued supportive measures are discussed. Probiotics with antibiotics. Follow up recommended for symptoms not turning a corner in 2-3 days, or sooner for worsening or newsymptoms, or those that do not clear with treatment. - amoxicillin-clavulanate (AUGMENTIN) 875-125 mg per tablet; Take 1 Tablet by mouth 2 times daily for 7 days. Dispense: 14 Tablet; Refill: 0 An appropriate medical screening examination was performed. The patient was assessed prior to discharge and deemed stable for discharge home. HPI: Sultana presents to [facility] with her toddler for evaluation of worsening URI symptoms. She reports that the whole household was ill with a bad virus, onset 2 weeks ago. Symptoms were largely improving: less congestion, resolved cough. No fever. Then in the last couple days she had a change to her nasal congestion: thicker, harder to shift, and she was having increased pressure in the left sinuses, and pain in her left upper teeth. PO normal. Nonsmoker. 15 weeks . The history is provided by the patient. Sinusitis This is a new problem. The current episode started 1 to 4 weeks ago. There has been no fever. Associated symptoms include congestion (harder to clear, worse on the left side), headaches and sinus pressure (left dental pain). Pertinent negatives include no chills or ear pain. Past treatments includeacetaminophen (lots of fluids, echinachea, tea). The treatment provided no relief. I have reviewed current problem list and current medications. ROS: See HPI for details Review of Systems Constitutional: Negative for chills. HENT: Positive for congestion (harder to clear, worse on the left side) and sinus pressure (left dental pain). Negative for ear pain. Neurological: Positive for headaches. Examination: Vitals: BP 116/76 (BP Cuff Location: Left arm, BP Patient Position: Sitting, BP Cuff Sizes: Adult, regular) Pulse 88 Temp 37.1 ??C (98.7 ??F) (Oral) Resp 18 SpO2 98% Physical Exam Vitals and nursing note reviewed. Constitutional: General: She is not in acute distress. Appearance: She is not ill-appearing or diaphoretic. HENT: Head: Atraumatic. Jaw: No trismus. Right Ear: Tympanic membrane and ear canal normal. Left Ear: Tympanic membrane and ear canal normal. Nose: Congestion present. Right Turbinates: Swollen. Left Turbinates: Swollen. Left Sinus: Maxillary sinus tenderness present. Mouth/Throat: Lips: [place]. Mouth: Mucous membranes are moist. Pharynx: Oropharynx is clear. Pulmonary: Effort: Pulmonary effort is normal. Musculoskeletal: Cervical back: Normal range of motion and neck supple. No tenderness. Lymphadenopathy: Cervical: No cervical adenopathy. Skin: General: Skin is warm and dry. Neurological: Mental Status: She is alert. Psychiatric: Mood and Affect: Mood normal. Behavior: Behavior normal. Behavior is cooperative. Data reviewed (past results):Reviewed and/or ordered active problem list, medication list, allergies This note may be in part documented using [employer] dictation software. Please forgive any errors, omissions or typos that may result from use of dictation. Patient/guardian verbally consented to the use of any clinical photography obtained in the visit today for the purposes of diagnosis, treatment or identification of the patient. documented in this encounter Plan of Treatment Upcoming Encounters Date Type Department Care Team (Late st Contact Info) Description 11/18/2024 15:15 EST Telemedicine [facility] Neurology - [address] [place] [address] [address] [place] [address] Tracy Fuller NP 1 [facility], [address] [place] [phone] documented as of this encounter Visit Diagnoses Diagnosis Rhinosinusitis- Primary Unspecified sinusitis (chronic) documented in this encounter Care Teams Associate Director Of Development Relationship Specialty Start Date End Date Mauricio Solomon ND [address] [place] [address],[address] [place] [phone] PCP - General 01/29/24 documented as of this encounter
--- OUTSIDE RECORDS SUMMARY | 2024-09-03 18:06 | XMS_ITS | Encounter Summary ---
Author Organization [facility] Address [address] [place] [address] Care Team Providers Care Project Development Manager Name Role Phone Mauricio Solomon ND Primary Care Provider + Encounter Details Date Type Department Care Team (Late st Contact Info) Description 02/09/2024 Lab Requisition [facility] Pathology & Laboratory Medicine - [facility] [address] [place], [place] [phone] Outr Resulting Lab, Provider Social History Tobacco Use Types Packs/Day Years [...] Contact Info) Description 11/18/2024 15:15 EST Telemedicine [facility] Neurology - [address] [place] [address] [place], [place] [phone] Tracy Fuller NP 1 [facility], [address] [place] [phone] documented as of this encounter Procedures Procedure Name Priority Date/Time Associated Diagnosis Comments HIV 1/2 ANTIGEN AND ANTIBODY, 4TH GENERATION Routine 02/09/2024 14:38 EDT documented in this encounter Results * HIV 1/2 ANTIGEN AND ANTIBODY, 4TH GENERATION (02/09/2024 14:38 EDT) HIV 1 and 2 Antibody/p24 Antigen, 4th Generation Negative Negative 02/09/2024 23:13 EDT [facility] Comment:If acute HIV-1 infec tion is suspected in a high risk patient, submit plasma specimen for HIV-1 RNA quantitation test. Blood VENOUS BLOOD / Unknown 02/09/2024 14:38 EDT 02/09/2024 22:01 EDT Narrative [facility] - 02/09/2024 23:13 EDT Fourth Generation assay performed on the Siemens Centaur XPT. Provider Outr Resulting Lab IMMUNOLOGY A ND SEROLOGY ORDERABLES [facility] [address] [place] [address] documented in this encounter Visit Diagnoses Not on filedocumented in this encounter Care Teams Project Development Manager Relationship Specialty Start Date End Date Mauricio Solomon ND [address] [place] [address],[address] [place] [phone] PCP - General 01/29/24 documented as of this encounter
--- OUTSIDE RECORDS SUMMARY | 2024-09-03 18:06 | XMS_ITS | Encounter Summary ---
Author Organization [facility] Address [address] [place] [address] Care Team Providers Care Rate Analyst Name Role Phone Mauricio Solomon ND Primary Care Provider + Encounter Details Date Type Department Care Team (Late st Contact Info) Description 02/09/2024 Lab Requisition [facility] Pathology & Laboratory Medicine - [facility] [address] [place], [place] [address] Outr Resulting Lab, Provider Social History Tobacco [...] Contact Info) Description 11/18/2024 15:15 EST Telemedicine [facility] Neurology - [address] [place], [place] [address] Tracy Fuller NP [address] [place] [address], [address] [place] [phone] documented as of this encounter Procedures Procedure Name Priority Date/Time Associated Diagnosis Comments THYROID ANTIBODIES Routine 02/09/2024 14 :38 EDT documented in this encounter Results * THYROID ANTIBODIES (02/09/2024 14:38 EDT) Anti-Thyroglobulin <15 <=60 U/mL 2023 22:35 EDT [facility] Thyroperoxidase Ab 36 <=60 U/mL 2023 22:35 EDT [facility] Blood VENOUS BLOOD / Unknown 02/09/2024 14:38 EDT 02/09/2024 22:01 EDT Provider Outr Resulting Lab CHEMISTRY & BLOOD GAS ORDERABLES Performing Organization Address City/State/[facility] Co de Phone Number [facility] [address] [place] [phone] documented in this encounter Visit Diagnoses Not on filedocumented in this encounter Care Teams Rate Analyst Relationship Specialty Start Date End Date Mauricio Solomon ND [address] [place] [address],[address] [place] [address] PCP - General 01/29/24 documented as of this encounter
--- OUTSIDE RECORDS SUMMARY | 2024-09-03 18:06 | XMS_ITS | Encounter Summary ---
Author Organization [facility] Address [address] [place] [address] Care Team Providers Care Oracle Ebs Architect Name Role Phone Mauricio Solomon ND Primary Care Provider + Encounter Details Date Type Department Care Team (Late st Contact Info) Description 02/09/2024 Lab Requisition [facility] Pathology & Laboratory Medicine - [facility] [address] [place], [place] [address] Outr Resulting Lab, Provider Social History Tobacco [...] Info) Description 11/18/2024 15:15 EST Telemedicine [facility] Neurology - [address] [place] [place], [place] [address] Tracy Fuller NP [address] [place] [address], [address] [place] [phone] documented as of this encounter Procedures Procedure Name Priority Date/Time Associated Diagnosis Comments HEPATITIS C AB W REFLEX TO HCV RNA BY PCR Routine 02/09/2024 14:38 EDT documented in this encounter Results * HEPATITIS C AB W REFLEX TO HCV RNA BY PCR (02/09/2024 14:38 EDT) Hep C Antibody Negative Negative 02/09/2024 23:15 EDT [facility] Blood VENOUS BLOOD / Unknown 02/09/2024 14:38 EDT 02/09/2024 22:01 EDT Provider Outr Resulting Lab CHEMISTRY & BLOOD GAS ORDERABLES [facility] [address] [place] [address] documented in this encounter Visit Diagnoses Not on filedocumented in this encounter Care Teams Oracle Ebs Architect Relationship Specialty Start Date End Date Mauricio Solomon ND [address] [place] [phone] PCP - General 01/29/24 documented as of this encounter
--- OUTSIDE RECORDS SUMMARY | 2024-09-03 18:06 | XMS_ITS | Encounter Summary ---
Author Organization [facility] Address [address] [place] [address] Care Team Providers Care Flotation Operator Name Role Phone Mauricio Solomon ND Primary Care Provider + Encounter Details Date Type Department Care Team (Late st Contact Info) Description 02/09/2024 Lab Requisition [facility] Pathology & Laboratory Medicine - [facility] [address] [place], [place] [address] Outr Resulting Lab, Provider Social History Tobacco [...] Contact Info) Description 11/18/2024 15:15 EST Telemedicine [facility] Neurology - [address] [place] [address] [place], [place] [address] Tracy Fuller NP [address] [place] [address], [address] [place] [phone] documented as of this encounter Procedures Procedure Name Priority Date/Time Associated Diagnosis Comments RUBELLA IGG ANTIBODY Routine 02/09/2024 14:38 EDT documented in this encounter Results * RUBELLA IGG ANTIBODY (02/09/2024 14:38 EDT) Rubella IgG Ab Negative See Note 02/12/2024 11:14 EDT [facility] Comment:Sample is considered negative for IgG antibodies to Rubella virus. A negative result presumes that immunity has not been acquired. If exposure to Rubella virus is suspected despite a negative finding, a second specimen should be collected and tested for Rubella IgG Ab one or two weeks later. Blood VENOUS BLOOD / Unknown 02/09/2024 14:38 EDT 02/09/2024 22:01 EDT Provider Outr Resulting Lab CHEMISTRY & BLOOD GAS ORDERABLES [facility] [address] [place], [place] [phone] documented in this encounter Visit Diagnoses Not on filedocumented in this encounter Care Teams Flotation Operator Relationship Specialty Start Date End Date Mauricio Solomon ND [address] [place] [address],[address] [place] [address] PCP - General 01/29/24 documented as of this encounter
--- OUTSIDE RECORDS SUMMARY | 2024-09-03 18:06 | XMS_ITS | Referral Summary ---
Author Organization [facility] Address [address] [place] [address] Care Team Providers Care Income Tax Expert Name Role Phone CarolineMauricio calles ND Primary Care Provider + Encounters Date Type Department Care Team Description 08/27/2024 Lab Requisition [facility] Pathology & Laboratory Medicine - [facility] [address] [place] [address] Mildred Rodriguez Maternal care for intrauterine , not applicable or unspecified 07/23/2024 Telephone [facility] Neurology [address] [phone] Tracy Fuller NP Appointment Related 07/18/2024 10:00 EDT Telemedicine [address] [phone] Olinda Matt MD Migraine without aura and without status migrainosus, not intractable (Primary Dx) 06/14/2024 Telephone [facility] Neurology [address] [phone] Unknown, ProviderMD Appointment Related (New Patient Visit) from Last 3 Months Allergies No known active allergies Medications Medication Sig Dispensed Refills Start Date End Date Status pyridoxine, vitamin B6, (VITAMIN B6) 50 mg tablet Take 1 Tablet by mouth daily. Active Cholecalciferol, Vitamin D3, (VITAMIN D3) 50 mcg capsule Take 1 Capsule by mouth daily. Active docosahexaenoic acid (DHA ORAL) Take 500 mg by mouth daily. Active PNV 119-iron fum-folic acid 29 mg iron- 1 mg tablet Take 1 Tablet by mouth daily. Innate brand Active MAGNESIUM GLYCINATE ORAL Take 400-800 mg by mouth daily. Active no115/iron/folic acid ( 19 ORAL) Take by mouth daily. Active BABY ASPIRIN ORAL Take by mouth daily. Active eletriptan (RELPAX) 20 mg tablet Take 1 Tablet by mouth as needed for Migraine. Take 1/2 tab the first time to ensure tolerability. May repeat in 2 hours if necessary. Total daily dose 80 mg per day. Limit 8 treatment days per week. 9 Tablet 1 07/18/2024 Active metoclopramide HCl (REGLAN) 5 mg tablet Take 1 Tablet by mouth 2 times daily as needed for Nausea. 20 Tablet 3 07/18/2024 Active Social History Tobacco Use Types Packs/Day Years Used Date Smoking Tobacco: Never Passive Smoke Exposure: Current Smokeless Tobacco: Never Tobacco Cessation:Counseling Given: Not Answered Passive Exposure Comments:partner smokes outside, mother smoked when pt was child Interpersonal Safety Answer Date Record ed Physically Hurt Never 02/18/2021 Verbally Threaten Not on file 02/18/2021 Comments Yes Sex and Gender Information Value Date Recorded Sex Assigned at Not on file Gender Identity Female 01/29/2024 13:24 EDT Sexual Orientation Not on file Last Filed Vital Signs Vital Sign Reading Time Taken Comments Blood Pressure 116/76 03/06/2024 1343 EDT Pulse 88 03/06/2024 1343 EDT Temperature 37.1 ??C (98.7 ??F) 03/06/2024 1343 EDT Respiratory Rate 18 03/06/2024 1343 EDT Oxygen Saturation 98% 03/06/2024 1343 EDT Inhaled Oxygen Concentration - - Weight 68.9 kg (152 lb) 02/02/2024 1547 EDT Height 174.1 cm (5' 8.54) 02/02/2024 1547 EDT Body Mass Index 22.75 02/02/2024 1547 EDT Plan of Treatment Upcoming Encounters Date Type Department Care Team (Late st Contact Info) Description 11/18/2024 15:15 EST Telemedicine [facility] Neurology - [address] [place] [address] [place] [address] Tracy Fuller NP [address] [place] [address] [address] [place] [phone] Procedures Procedure Name Priority Date/Time Associated Diagnosis Comments HEPATITIS C AB W REFLEX TO HCV RNA BY PCR Routine 02/09/2024 14:38 EDT from Last 3 Months or Most Recently Relevant to Health Maintenance Results * HEPATITIS C AB W REFLEX TO HCV RNA BY PCR (02/09/2024 14:38 EDT) Hep C Antibody Negative Negative 02/09/2024 23:15 EDT [facility] Blood VENOUS BLOOD / Unknown 02/09/2024 14:38 EDT 02/09/2024 22:01 EDT Provider Outr Resulting Lab CHEMISTRY & BLOOD GAS ORDERABLES [facility] [address] [place] [address] from Last 3 Months or Most Recently Relevant to Health Maintenance Care Teams Income Tax Expert Relationship Specialty Start Date End Date Mauricio Solomon ND [address] [place] [address],[facility] [address] [place] [address] PCP - General 01/29/24
--- OUTSIDE RECORDS SUMMARY | 2024-09-03 18:06 | XMS_ITS | Clinical Summary ---
Author Organization [facility] Address [address] [place] [address] Care Team Providers Care Salt Maker Name Role Phone Mauricio Solomon ND Primary Care Provider + Allergies No known active allergies Medications Medication [...] for Nausea. 20 Tablet 3 07/18/2024 Active Encounters Date Type Department Care Team Description 08/27/2024 Lab Re[address] [facility] Pathology & Laboratory Medicine - [facility] [address] [place] [address] Mildred Rodriguez Maternal care for intrauterine , not applicable or unspecified 07/23/[address] [facility] Neurology [address] [phone] Tracy Fuller NP Appointment Related 07/18/2024 10:00 EDT Telemedicine [address] [phone] Olinda Matt MD Migraine without aura and without status migrainosus, not intractable (Primary Dx) 06/14/[address] [phone] Unknown, Provider, Appointment Related (New Patient Visit) from Last 3 Months Social History Tobacco Use Types Packs/Day Years [...] 13:24 EDT Sexual Orientation Not on file Obstetrics History Para Term AB IAB SAB Ectopic Multiple Livin g Live Births 1 Date Outcome GA Total Labor Labor/2nd/3rd Weight Sex Type Anes PTL Luz Elena A1 A5 Name Clin Current Last Filed Vital Signs Vital Sign Reading [...] Description 11/18/2024 15:15 EST Telemedicine [facility] Neurology - [address] [place] [address] Tracy Fuller NP 1 [facility], [address] [place] [address] Health Maintenance Due Date Last Done Comments Hepatitis B Vaccine (1 of 3 - 19+ 3-dose series) 05/02 COVID-19 Vaccine ( season) 2024 RSV Immunization ( o r 60+ Years) (1 - 1-dose 60+ series) 2043 Hepatitis C Screen Completed 02/09/2024 Procedures Procedure Name Priority Date/Time Associated Diagnosis Comments HEPATITIS C AB W REFLEX TO HCV RNA BY PCR Routine 02/09/2024 14:38 EDT from Last 3 Months or Most Recently Relevant to Health Maintenance Results * HEPATITIS C AB W REFLEX TO HCV RNA BY PCR (02/09/2024 14:38 EDT) Hep C Antibody Negative Negative 02/09/2024 23:15 EDT [facility] Blood VENOUS BLOOD / Unknown 02/09/2024 14:38 EDT 02/09/2024 22:01 EDT Provider Outr Resulting Lab CHEMISTRY & BLOOD GAS ORDERABLES [facility] [address] [place], [place] [address] from Last 3 Months or Most Recently Relevant to Health Maintenance Care Teams Salt Maker Relationship Specialty Start Date End Date Mauricio Solomon ND [address] [place] [address],[address] [place] [phone] PCP - General 01/29/24
--- OUTSIDE RECORDS SUMMARY | 2024-09-03 18:06 | XMS_ITS | Encounter Summary ---
Author Organization [facility] Address [address] [place] [address] Care Team Providers Care Cherry Grower Name Role Phone Mauricio Solomon ND Primary Care Provider + Encounter Details Date Type Department Care Team (Late st Contact Info) Description 02/14/2024 Lab Requisition [facility] Pathology & Laboratory Medicine - [facility] [address] [place], [place] [address] Outr Resulting Lab, Provider Social History Tobacco [...] Contact Info) Description 11/18/2024 15:15 EST Telemedicine [facility] Neurology - [address] [place] [address] [place], [place] [address] Tracy Fuller NP [address] [place] [address], [address] [place] [phone] documented as of this encounter Procedures Procedure Name Priority Date/Time Associated Diagnosis Comments CHLAMYDIA/N. GONORRHOEAE AMPLIFIED NUCLEIC ACID Routine 02/14/2024 13:00 EDT documented in this encounter Results * CHLAMYDIA/N. GONORRHOEAE AMPLIFIED RNA (02/14/2024 13:00 EDT) Neisseria gonorrhoeae Result Negative Negative 02/15/2024 13:35 EDT [facility] Chlamydia trachomatis Result Negative Negative 02/15/2024 13:35 EDT [facility] Swab VAGINAL STRUCTURE / Unknown 02/14/2024 13:00 EDT 02/14/2024 21:35 EDT Provider Outr Resulting Lab MICROBIOLOGY - GENERAL ORDERABLES Performing Organization Address City/State/[facility] Co de Phone Number [facility] [address] [place] [address] documented in this encounter Visit Diagnoses Not on filedocumented in this encounter Care Teams Cherry Grower Relationship Specialty Start Date End Date Mauricio Solomon ND [address] [place] [address],[address] [place] [address] PCP - General 01/29/24 documented as of this encounter
--- OUTSIDE RECORDS SUMMARY | 2024-09-03 18:06 | XMS_ITS | Encounter Summary ---
Author Organization [facility] Address [address] [place] [address] Care Team Providers Care Bow Making Machine Operator Name Role Phone Mauricio Solomon ND Primary Care Provider + Reason for Visit * Reason Onset Date Comments Appointment Related 06/14/2024 New Patient Visit Encounter Details Date Type Department Care Team ([facility] st Contact Info) Description 06/14/2024 Telephone [facility] Neurology - S [address] [phone] Unknown, Provider, Appointment Related (New Patient Visit) Social History Tobacco Use Types Packs/Day Years [...] on file documented as of this encounter Miscellaneous Notes * Telephone Encounter - Radha Barreto - 07/12/2024 1208 EDT Sultana calls back to schedule NPV with the headache clinic. Scheduled her for 07/17/24 at 10:[address] Matt via [email or web address]. Assigned referral to theappointment. Sent TierPM sign up link to [email or web address] and provided MyChart Support line info if needed. * Telephone Encounter - Radha Barreto - 06/14/2024 1301 EDT LM for Sultana to schedule NPV with headache clinic. Upon callback, please schedule as noted below and assign the referral: NPV via My Chart Televideo Extended with Shaka Cook Regan or Leonard OR NPV in person Shaka or Bobo documented in this encounter Plan of Treatment Upcoming Encounters Date Type Department Care Team ([facility] st Contact Info) Description 11/18/2024 15:15 EST Telemedicine [facility] Neurology - [address] [place] [address] [place], [place] [address] Tracy Fuller, SOD CUTTER 1 [facility], [address] [place] [address] documented as of this encounter Visit Diagnoses Not on filedocumented in this encounter Care Teams Bow Making Machine Operator Relationship Specialty Start Date End Date Mauricio Solomon ND [address] [place] [address],[address] [place] [address] PCP - General 01/29/24 documented as of this encounter
--- OUTSIDE RECORDS SUMMARY | 2024-09-03 18:06 | XMS_ITS | Encounter Summary ---
Author Organization [facility] Address [address] [place] [address] Care Team Providers Care Lab Head Name Role Phone Mauricio Solomon ND Primary Care Provider + Encounter Details Date Type Department Care Team (Late st Contact Info) Description 02/09/2024 Lab Requisition [facility] Pathology & Laboratory Medicine - [facility] [address] [place], [place] [address] Outr Resulting Lab, Provider Social History Tobacco [...] Contact Info) Description 11/18/2024 15:15 EST Telemedicine [facility] Neurology - [address] [place] [address] [place], [place] [address] Tracy Fuller NP [address] [place] [address] [address] [place] [phone] documented as of this encounter Procedures Procedure Name Priority Date/Time Associated Diagnosis Comments SYPHILIS SEROLOGY Routine 02/09/2024 14: 38 EDT documented in this encounter Results * SYPHILIS SEROLOGY (02/09/2024 14:38 EDT) Syphilis Serology Negative Negative 02/12/2024 10:58 EDT [facility] Blood VENOUS BLOOD / Unknown 02/09/2024 14:38 EDT 02/09/2024 22:01 EDT Provider Outr Resulting Lab IMMUNOLOGY A ND SEROLOGY ORDERABLES [facility] [address] [place] [address] documented in this encounter Visit Diagnoses Not on filedocumented in this encounter Care Teams Lab Head Relationship Specialty Start Date End Date Maruicio Solomon ND [address] [place] [address],[address] [place] [phone] PCP - General 01/29/24 documented as of this encounter
--- OUTSIDE RECORDS SUMMARY | 2024-09-03 18:06 | XMS_ITS | Encounter Summary ---
Author Organization [facility] Address [address] [place] [address] Care Team Providers Care Child Care Centre Manager Name Role Phone Mauricio Solomon ND Primary Care Provider + Reason for Visit * Reason Comments New Patient Visit Telemedicine Video Visit * Referral (Routine) - Authorization Not Required Specialty Diagnoses / Procedures Referred By Kim dickerson Referred To Contact Neurology Diagnoses Migraine with aura, not intractable, without status migrainosus Mauricio Solomon ND [address] [place] [address],[address] [place] [address] Praveena Cook, DO [address] [place] [phone] Referral ID Status Reason Start Date Expiration Date Visits Requested Visits Authorized [id number] Authorization Not Required 1 1 Encounter Details Date Type Department Care Team (Late st Contact Info) Description 07/18/2024 10:00 EDT Telemedicine [facility] Neurology - [address] [id number] Olinda Matt MD [address] [place] [phone] Migraine without aura and without status migrainosus, not intractable (Primary Dx) Social History Tobacco Use Types [...] on file documented as of this encounter Patient Instructions * Patient Instructions* Olinda Matt MD - 07/18/2024 10:00 EDT Acute treatment: - After delivery, start eletriptan 20 mg tablets. Take 1/2 the first time to evaluate whether you have side effects. If you do not have bothersome side effects from the eletriptan, you can try takinga whoel tab the next time. Triptan side effects include fatigue or nausea, or rarely a sense of pressure in the neck or upper chest. If eletriptan is not covered by your insurance, we would switch tosumatriptan. - You can repeat the triptan once after 2 hours if needed. Limit 8 treatment days per month total - May take triptan with ibuprofen 400-600 mg - Start metoclopramide 5 mg for nausea. This medication may cause fatigue or tiredness. You can take 1/2 dose the first time to evaluate whether you have side effects. You can take this with the triptan and ibuprofen. Prevention: - Continue daily magnesium as you are currently taking it documented in this encounter Ordered Prescriptions Prescription Sig Dispensed Refills Start Date End Da te metoclopramide HCl (REGLAN) 5 mg tablet Take 1 Tablet by mouth 2 times daily as needed for Nausea. 20 Tablet 3 07/18/2024 eletriptan (RELPAX) 20 mg tablet Take 1 Tablet by mouth as needed for Migraine. Take 1/2 tab the first time to ensure tolerability. May repeat in 2 hours if necessary. Total daily dose 80 mg per day. Limit 8 treatment days per week. 9 Tablet 1 07/18/2024 documented in this encounter Progress Notes * Olinda Matt MD - 07/18/2024 1000 EDT The concept of ???Telemedicine?? has been described to the patient.? Patient has been informed of the anticipated benefits and possible risks.? Patient understands the information provided regardingtelemedicine, has had the opportunity to ask questions about this information, and all questions have been answered to patient???s satisfaction. Patient consents for the use of telemedicine in his/her medical care and authorizes the transmission of any relevant medical information to providers and their staff involved in patient???s medical or mental health care. TELEMEDICINE VIDEO VISIT Today's visit was provided through telemedicine video conferencing: I have reviewed the appropriateness of using video technology with the patient with regards to today's visit. The location of the patient : Home (where patient lives) Patient location state: Visit Location State: [place] The location of the provider: Home Office Provider location state: [place] The following people and their roles were present for today's visit: Appointment Provider: Olinda Matt MD Neurology New Patient Note 07/18/24 HPI: Sultana Driver is a 39 y.o. right-hand dominant female with history of depression, anxiety, childhood postraumatic seizures, seen today at the request of Mauricio Solomon ND for evaluation ofheadache. I have reviewed the intake form for today's visit. She is currently 8 months andhas had good relief from headache in the 2nd and 3rd trimester. In 1st trimester, she had a 5 day severe headache. She is due Aug 19. Headache Presentation: She started having headaches around age 4 or 5. They worsened in her 20s and became more migrainous, associated with photophobia and requiring her to rest. Frequency increased in her later 20s, to atleast 1 per week. In her late 20s she made major lifestyle changes and frequency decreased to just per-menstrual. In the last several years she's had a migraine with every menstrual period and they've become more severe. She treats with excedrin migraine but this doesn't always work, and sometimes they last into the next day. She is not having headaches outside of the menstrual window, so 1-2 permonth in most months. Headache phenotype: The pain location is unilateral retro-orbital but switches sides, and radiates to frontal and temporal. Pain is throbbing, stabbing in character, reaches 10/10 at worst and 8/10 typically. Headache duration: 5-18 hours. Pain is worsened by activity and she prefers to lie down with an attack. There is associated photophobia, phonophobia, nausea, sometimes vomiting, osmophobia, feeling faint, neck tightness. There is a prodrome of feeling off and a little headachy, out of it and nauseated. There is no visual, sensory, language, or motor aura. There are no autonomic features. Triggers: stress, smells, food, travel, light, missing meals, missing sleep, hormonal shifts and strong menstrual relationship. Headache is not provoked by coughing, straining, or valsalva. Headache frequency: Rare mild headache Current headache regimen: Abortive: tylenol Preventive: magnesium Nonpharmacologic therapies: daily exercise, diet changes Past/Failed therapies: Acute medications: Ibuprofen, Tylenol, Excedrin Preventive medications: Fish oil, magnesium, riboflavin, vitamin D3 Nonpharmacologic therapies: Acupuncture, chiropractor, massage, dietary restrictions. Headache Review of Systems and health habits: A complete 16 point review of systems was completed on the new patient self assessment form. This form has been reviewed with the patient. Additionally: Head trauma/concussion: At age 3 she ran into something and her head snapped back. Her vision went dark, and later she had several seizures. Psychological History: depression, anxiety BROADBAND ENGINEER history/Contraceptive method: None Fluid intake is good. Minimal caffeine, no alcohol, no smoking, no recreational drug use. Rare cannabis. Sleep: 5-9 hours/night, no difficulty falling asleep, does have difficulty staying asleep, endorsessnoring. Getting tested for sleep apnea. 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 No past medical history on file. There are no problems to display for this patient. Outpatient Medications Marked as Taking for the 07/18/24 encounter (Telemedicine) with Carlos Matt MD Medication Sig BABY ASPIRIN ORAL Take by mouth daily. MAGNESIUM GLYCINATE ORAL Take 400-800 mg by mouth daily. PNV 119-iron fum-folic acid 29 mg iron- 1 mg tablet Take 1 Tablet by mouth daily. Innate brand no115/iron/folic acid ( 19 ORAL) Take by mouth daily. pyridoxine, vitamin B6, (VITAMIN B6) 50 mg tablet Take 1 Tablet by mouth daily. No Known Allergies Social History Socioeconomic History Marital status: Single Tobacco Use Smoking status: Never Passive exposure: Current (partner smokes outside, mother smoked when pt was child) Smokeless tobacco: Never Physical Exam: Vitals: Not taken for teleneuro visit Physical Exam: General: Patient of apparent stated age, well nourished, no acute distress HEENT: Normocephalic Resp: Breathing comfortably on room air Neurological exam: Mental status: Alert and oriented to person, place, date, time. Clear fluent language, no dysarthria. Normal fund of knowledge. Memory intact Cranial nerves: III, IV, : Extra ocular movements intact. No nystagmus is present. No ptosis or anisocoria is noted. VII: Face symmetric IX and X: Gag deferred. No dysarthria or dysphonia. Palate elevation symmetric XI: Shoulder shrug intact XII: Tongue midline, no atrophy or fasciculations Motor: Normal bulk. No pronator drift. Strength is at least anti-gravity in bilateral upper and lower extremities Coordination: Finger to nose intact. No dysmetria. No ataxia Gait: Stable steady gait. Imaging, Labs, Studies: Has not had head imaging Depression, Anxiety and Headache Scales: Depression Screening: PHQ-9 score 10 which concerning for PHQ-9 score 1-4 = No or Minimal depression PHQ-9 score 5-9 = Mild depression PHQ-9 score 10-14 = Moderate depression PHQ-9 score 15-19 = Moderately severe depression PHQ-9 score 20-27 = Severe depression Anxiety Screening: RAFI-7 score 14 which concerning for RAFI-7 Score 0-4 = No Anxiety RAFI-7 Score 5-9 = Mild Anxiety RAFI-7 Score 10-14 = Moderate Anxiety Score >15 = Severe Anxiety Migraine Disability Screening: HIT-6 (Headache Inpact Test) score 67 which indicates HIT-6 score 49 or less = Little or no impact HIT-6 score 50-55 = Some impact HIT-6 score 56-59 = Substantial impact HIT-6 score 60 or higher = Severe impact MIDAS (Migraine Disability Assessment) score 13 which indicates MIDAS Score 0-5 = Grade I, Little or no disability MIDAS Score 6 to 10 = Grade II, Mild disability MIDAS Score 11 to 20 = Grade III, Moderate disability MIDAS Score 21+ = Grade IV, Severe disability ASSESSMENT/PLAN: Assessment: Episodic migraine without aura. Currently improved due to Plan: Further work up: - No additional work up needed at this time. Low threshold for head MRI if symptoms change, worsen,or do not respond appropriately to treatment. Acute treatment: - After delivery, start eletriptan 20 mg tablets (preferred in ). Take 1/2 the first time to ensure tolerability. Would switch to sumatriptan 25 mg if eletriptan is not covered by insurance. - May take with ibuprofen 400-600 mg - Start metoclopramide for nausea Prevention: - Continue daily magnesium Headache Calenders: - Encouraged Sultana to maintain a headache diary to be reviewed at the next follow-up visit. Follow up in 4 months or earlier if needed. I spent a total of 50 minutes on the date of this encounter meeting with the patient and reviewing documentation/coordinating care as described in the above note. No procedures were performed at the time of the visit. Olinda Matt MD 07/18/2024 Cc: Mauricio Solomon Cc: documented in this encounter Plan of Treatment Upcoming Encounters Date Type Department Care Team (Late st Contact Info) Description 11/18/2024 15:15 EST Telemedicine [facility] Neurology - [address] [id number] Tracy Fuller NP [address] [place] [address] [address] [place] [phone] documented as of this encounter Visit Diagnoses Diagnosis Migraine without aura and without status migrainosus, not intractable- Primary Migraine without aura, without mention of intractable migraine without mention of status migrainosus documented in this encounter Discontinued Medications Medication Sig Discontinue Reason Start Date End Da te citalopram (CELEXA) 20 mg tablet TAKE 1/2 TABLET ORALLY ONCE DAILY FOR 6 DAYS THEN 1 TABLET DAILY 12/07/2023 07/18/2024 riboflavin, vitamin B2, 400 mg tablet Take 1 Tablet by mouth daily. 07/18/2024 zolpidem (AMBIEN) 5 mg tablet take 1 tablet by mouth every day at bedtime as needed for sleep 12/07/2023 07/18/2024 UNABLE TO FIND Med Name: SEGUNDO 550 mg, 200 mg Danilo 07/18/2024 documented as of this encounter Historical Medications * This list may reflect changes made after this encounter. Medication Sig Dispensed Refills Start Date End Date BABY ASPIRIN ORAL Take by mouth daily. no115/iron/folic acid ( 19 ORAL) Take by mouth daily. added in this encounter Care Teams Child Care Centre Manager Relationship Specialty Start Date End Date Mauricio Solomon ND [address] [place] [address],[facility] [address] [place] [phone] PCP - General 01/29/24 documented as of this encounter
--- OUTSIDE RECORDS SUMMARY | 2024-09-03 18:06 | XMS_ITS | Encounter Summary ---
Author Organization [facility] Address [address] [place] [address] Care Team Providers Care Motion Picture Set Up Worker Name Role Phone Mauricio Solomon ND Primary Care Provider + Encounter Details Date Type Department Care Team (Late st Contact Info) Description 02/09/2024 Lab Requisition [facility] Pathology & Laboratory Medicine - [facility] [address] [place], [place] [id number] Outr Resulting Lab, Provider Social History Tobacco [...] Contact Info) Description 11/18/2024 15:15 EST Telemedicine [facility] Neurology - S [place] [address] [place], [place] [address] Tracy Fuller NP [address] [place] [address], [address] [place] [phone] documented as of this encounter Procedures Procedure Name Priority Date/Time Associated Diagnosis Comments HEPATITIS B SURFACE ANTIGEN Routine 02/09/2024 14:38 EDT documented in this encounter Results * HEPATITIS B SURFACE ANTIGEN (02/09/2024 14:38 EDT) Hep B Surface Ag Negative Negative 02/09/2024 23:08 EDT [facility] Blood VENOUS BLOOD / Unknown 02/09/2024 14:38 EDT 02/09/2024 22:01 EDT Provider Outr Resulting Lab CHEMISTRY & BLOOD GAS ORDERABLES [facility] [address] [place] [address] documented in this encounter Visit Diagnoses Not on filedocumented in this encounter Care Teams Motion Picture Set Up Worker Relationship Specialty Start Date End Date Mauricio Solomon ND [address] [place] [address],[address] [place] [address] PCP - General 01/29/24 documented as of this encounter
--- OUTSIDE RECORDS SUMMARY | 2024-09-03 18:06 | XMS_ITS | Encounter Summary ---
[place] [address] Care Team Providers Care Ruffling Machine Operator Name Role Phone Mauricio Solomon ND Primary Care Provider + Reason for Referral * Consultation (Routine) - Closed Specialty Diagnoses / Procedures Referred By Kim dickerson Referred To Contact Neurology Diagnoses Intractable menstrual migraine with status migrainosus Mauricio Solomon ND [address] [place] [address] [facility] Neurology [address] [place] [phone] Referral ID Status Reason Start Date Expiration Date V isits Requested Visits Authorized [id number] Closed Consult, Test & Treat 10/11/2023 10/10/2024 1 1 Encounter Details Date Type Department Care Team (Latest Contact Info) Description 10/11/2023 Transcribe Orders eD Incoming Referrals [phone] Mauricio Solomon ND [address] [place], [place] [phone] (Fax) Intractable menstrual migraine with status migrainosus (Primary Dx) Social History Tobacco Use Types Packs/Day Years Used Date Smoking Tobacco: Never Assessed Sex and Gender Information Value Date Recorded Sex Assigned at Not on file Gender Identity Not on file Sexual Orientation Not on file documented as of this encounter Plan of Treatment Scheduled Referrals Name Type Priority Associated Diagnoses Orde r Schedule Referral to Neurology Outpatient Referral Routine Intractable menstrual migraine with status migrainosus Ordered: 10/11/2023 documented as of this encounter Visit Diagnoses Diagnosis Intractable menstrual migraine with status migrainosus- Primary Menstrual migraine, with intractable migraine, so stated, with status migrainosus documented in this encounter Care Teams Ruffling Machine Operator Relationship Specialty Start Date End Date Mauricio Solomon ND [address] [place] [address] PCP - General Naturopathic Medicine 10/10/23 documented as of this encounter
--- OUTSIDE RECORDS SUMMARY | 2024-09-03 18:06 | XMS_ITS | Clinical Summary ---
Author Organization [facility] Address [facility] [place] [address] Care Team Providers Care Liner Replacer Name Role Phone Mauricio Solomon ND Primary Care Provider + Social History Tobacco Use Types Packs/Day Years Used Date Smoking Tobacco: Never Assessed Sex and Gender Information Value Date Recorded Sex Assigned at Not on file Gender Identity Not on file Sexual Orientation Not on file Plan of Treatment Health Maintenance Due Date Last Done Comments HIV screen 2001 Hepatitis C Screening 2001 Hepatitis B vaccine (0-59 yrs) (1) 2002 Tetanus/Diphtheria/Pertussis Vaccines (1 - Tdap) 05/02 HPV test 2013 PAP Smear 2013 Breast Cancer Share Decision Needed 2023 Breast Cancer screening 2023 Covid-19 Vaccine ( - 2022- season) 2024 Influenza (Flu) vaccine (1 o f 1 - Influenza standard series) 07/14/2024 Care Teams Liner Replacer Relationship Specialty Start Date End Date Mauricio Solomon ND [address] [place] [address] PCP - General Naturopathic Medicine 10/10/23
--- OUTSIDE RECORDS SUMMARY | 2024-09-03 18:06 | XMS_ITS | Encounter Summary ---
Author Organization [facility] Address [address] [place] [address] Care Team Providers Care Service Developer Name Role Phone Mauricio Solomon ND Primary Care Provider + Reason for Visit * Reason Onset Date Comments Appointment Related 07/23/2024 Encounter Details Date Type Department Care Team (Late st Contact Info) Description 07/23/2024 Telephone [facility] Neurology - S [address] [phone] Tracy Fuller NP [address] [place] [address] [address] [place] [phone] Appointment Related Social History Tobacco Use Types Packs/Day Years [...] * Telephone Encounter - Radha Barreto - 07/30/2024 1010 EDT Spoke to Sultana to schedule FUR 60 via [employer] Televideo with Dhaval Fuller NP on 11/18/24 at 3:15 PM. * Telephone Encounter - Radha Barreto - 07/23/2024 1621 EDT LM for Sultana to schedule FUR 60 via [employer] Televideo with Dhaval Fuller NP, per Dr. Matt's clinic note. Upon callback, please schedule from recall. documented in this encounter Plan of Treatment Upcoming Encounters Date Type Department Care Team (Late st Contact Info) Description 11/18/2024 15:15 EST Telemedicine [facility] Neurology - S [place] [address] [place], [place] [phone] Tracy Fuller NP [address] [place] [address], [address] [place] [phone] documented as of this encounter Visit Diagnoses Not on filedocumented in this encounter Care Teams Service Developer Relationship Specialty Start Date End Date Mauricio Solomon ND [address] [place] [address],[address] [place] [phone] PCP - General 01/29/24 documented as of this encounter
--- OUTSIDE RECORDS SUMMARY | 2024-09-03 18:07 | XMS_ITS | Encounter Summary ---
Author Organization [facility] Address [address] [place] [address] Care Team Providers Care Space Operations Name Role Phone Unknown, Provider Primary Care Provider Mauricio Solomon ND Primary Care Provider + Encounter Details Date Type Department Care Team (Late st Contact Info) Description 02/15/2021 Lab Requisition [facility] Pathology & Laboratory Medicine - [address] [address] Radha Shane MD MSc [address] [facility] [address] [place] [address] Social History Tobacco Use Types Packs/Day Years Used Date Smoking Tobacco: Never Assessed Interpersonal Safety Answer Date Record ed Physically Hurt Never 02/18/2021 Verbally Threaten Not on file 02/18/2021 Sex and Gender Information Value Date Recorded Sex Assigned at Not on file Gender Identity Female 01/29/2024 13:24 EDT Sexual Orientation Not on file documented as of this encounter Plan of Treatment Upcoming Encounters Date Type Department Care Team (Late st Contact Info) Description 11/18/2024 15:15 EST Telemedicine [facility] Neurology - S [address] [phone] Tracy Fuller NP [address] [place] [address] 2 [place] [phone] documented as of this encounter Procedures Procedure Name Priority Date/Time Associated Diagnosis Comments TYPE AND SCREEN Today 02/15/2021 11:30 EDT documented in this encounter Results * TYPE AND SCREEN (02/15/2021 11:30 EDT) ABO O 02/15/2021 17:16 EDT [facility] Rh Factor Positive 02/15/2021 17:16 EDT [facility] Antibody Screen Negative 02/15/2021 17:16 EDT [facility] Specimen Expires: 02/18/2021 @ 23:59 02/15/2021 17:16 EDT [facility] Blood VENOUS BLOOD / Unknown 02/15/2021 11:30 EDT 02/15/2021 16:10 EDT Radha Shane MD MSc BLOOD BANK TESTS Performing Organization Address City/State/[facility] Co de Phone Number [facility] [address] [place] [address] documented in this encounter Visit Diagnoses Not on filedocumented in this encounter Care Teams Space Operations Relationship Specialty Start Date End Date Unknown, Provider, PCP - General 07/14/17 01/28/24 Mauricio Solomon ND [address] [place] [address],[address] [place] [phone] PCP - General 01/29/24 documented as of this encounter
--- OUTSIDE RECORDS SUMMARY | 2024-09-03 18:07 | XMS_ITS | Encounter Summary ---
Author Organization [facility] Address [address] [place] [address] Care Team Providers Care Cigar Wrapper Name Role Phone Mauricio Solomon ND Primary Care Provider + Reason for Visit * Reason Onset Date Comments Results 02/05/2024 Encounter Details Date Type Department Care Team (Late st Contact Info) Description 02/05/2024 Telephone [facility] Sleep Program - S [address] [phone] Tanya Gomez RN [address] [place] [address] Results Social History Tobacco Use Types Packs/Day Years [...] encounter Miscellaneous Notes * Telephone Encounter - Belgica Bal - 02/06/2024 1201 EDT Left voicemail message requesting call back to schedule follow up appointment with Alyx Alejandro to review HSAT results and next steps. * Telephone Encounter - Tanya Gomez RN - 02/06/2024 0909 EDT Message from Alyx Alejandro NP to the Nurse Pool: Please inform the patient that the sleep study was not significant for sleep apnea. In terms of managing snoring, I would recommend she avoid sleeping on her back, keep her head slightly elevated and optimize nasal patency to prevent nasal congestion. She can consider nasal saline spray as needed with added congestion or breath right strips. If she has not tried already, she can also consider an over the counter anti snore device. It sounds like the patient is experiencing insomnia, resulting in her daytime symptoms of sleepiness and non-restorative sleep. If she would like, I be happy to see her for a follow up visit to discuss the results of her sleep study or put in a referral to sleep behavioral psychology to further discuss her sleep/insomnia. Relayed above to pt. Verbalized understanding, no barrier to learning. She said she is glad to hearthis as she is . She states her insomnia comes and goes, off and on, was good last week. She is interested in the follow up appt. Routed message to PSS Pool for scheduling. * Telephone Encounter - Sheridan Rodriguez MA - 02/05/2024 1606 EDT Patient returning Rn's call please call back * Telephone Encounter - Tanya Gomez RN - 02/05/2024 1451 EDT Left a message asking patient to call me at the Sleep Program. documented in this encounter Plan of Treatment Upcoming Encounters Date Type Department Care Team (Late st Contact Info) Description 11/18/2024 15:15 EST Telemedicine [facility] Neurology - S [place] [address] [place], [place] [address] Tracy Fuller NP [address] [place] [address], [address] [place] [phone] documented as of this encounter Visit Diagnoses Not on filedocumented in this encounter Care Teams Cigar Wrapper Relationship Specialty Start Date End Date Mauricio Solomon ND [address] [place] [address],[address] [place] [phone] PCP - General 01/29/24 documented as of this encounter
--- OUTSIDE RECORDS SUMMARY | 2024-09-03 18:07 | XMS_ITS ---
Author Organization Unknown Address [address] [place] [phone] Phone Care Team Providers Care Orthopedic Physician Name Role Phone FRANNY Che Attending Unavailable ARCHDEACON JONI Tolentino Primary Unavailable Social History Type Status Start Date End Date Code Code Syst em Smoking History Unknown if ever smoked [id number] Sex Female Hospital Discharge Instructions Should you have any questions prior to discharge, please contact a member of your healthcare team. If you have left the hospital and have any questions, please contact your primary care physician. Reason For Referral No Data Found Plan of Treatment No Data Found Personal Care Team Section Performer Name Performer Role Active Date Inactive Da te
--- OUTSIDE RECORDS SUMMARY | 2024-09-03 18:07 | XMS_ITS | Encounter Summary ---
Author Organization [facility] Address [address] [place] [address] Care Team Providers Care Art Gilder Name Role Phone Mauricio Solomon ND Primary Care Provider + Reason for Visit * Reason Comments Home Sleep Apnea Test, Return Encounter Details Date Type Department Care Team (Late st Contact Info) Description 02/05/2024 8:45 EDT Nurse Only [facility] Sleep Program - [address] [phone] Sleep, Tech [address] [place], [place] [phone] Snoring (Primary Dx) Social History Tobacco Use Types [...] on file documented as of this encounter Progress Notes * Darwin Martinez - 02/05/2024 0845 EDT Patient returned the HSAT unit today at their [facility] Appointment. Height, weight, and medications were reviewed with the patient and updated. The HSAT unit was downloaded and the study reviewed in its entirety. The Home Sleep ApneaTest was successful and had >4 hours of interpretable data that will be reviewed by a Sleep Physician. The results of this test will be attached to the HSAT set-up encounter. documented in this encounter Plan of Treatment Upcoming Encounters Date Type Department Care Team ([facility] Contact Info) Description 11/18/2024 15:15 EST Telemedicine [facility] Neurology - [address] [place] [address] [place], [place] [address] Tracy Fuller NP 1 [facility], Level [address] [place] [phone] documented as of this encounter Visit Diagnoses Diagnosis Snoring- Primary Other dyspnea and respiratory abnormality documented in this encounter Care Teams Art Gilder Relationship Specialty Start Date End Date Mauricio Solomon ND [address] [place] [address],[address] [place] [phone] PCP - General 01/29/24 documented as of this encounter
--- OUTSIDE RECORDS SUMMARY | 2024-09-03 18:07 | XMS_ITS | Encounter Summary ---
Author Organization [facility] Address [address] [place] [address] Care Team Providers Care Manager Wound Care Name Role Phone Mauricio Solomon ND Primary Care Provider + Encounter Details Date Type Department Care Team (Latest Contact Info) Description 02/02/2024 Transcribe Orders [facility] - Main [place] [address] [place], [place] [phone] Mauricio Solomon ND [address] [place] [address],[facility] [address] [place] [phone] Unspecified screening (Primary Dx) Social History Tobacco Use Types [...] Contact Info) Description 11/18/2024 15:15 EST Telemedicine [facility] Neurology - [address] [place] [address] [place], [place] [address] Tracy Fuller NP 1 [facility], Level [address] [place] [phone] Scheduled Orders Name Type Priority Associated Diagnoses Orde r Schedule LAB VENIPUNCTURE DRAW TEST Lab Routine Unspecified screening Ordered: 02/05/2024 documented as of this encounter Visit Diagnoses Diagnosis Unspecified screening- Primary documented in this encounter Care Teams Manager Wound Care Relationship Specialty Start Date End Date Mauricio Solomon ND [address] [place] [address],[facility] [address] [place] [phone] PCP - General 01/29/24 documented as of this encounter
--- OUTSIDE RECORDS SUMMARY | 2024-09-03 18:07 | XMS_ITS | Encounter Summary ---
Author Organization Health system Address [address] [place] [address] Care Team Providers Care Casing Grader Name Role Phone CarolineMauricio calles KYM Primary Care Provider + Reason for Visit * Reason Comments Home Sleep Apnea Test (HSAT) * Sleep Study (Urgent) - Authorization Not Required Specialty Diagnoses / Procedures Referred By Kim dickerson Referred To Contact Sleep Medicine Diagnoses Frequent nocturnal awakening Excessive daytime sleepiness Non-restorative sleep Snoring Procedures HOME SLEEP APNEA TEST (HSAT) [place] SLEEP STD AIRFLOW HRT RATE&O2 SAT EFFORT UNAAlyx Castro NP [address] [place] [address] [address] [place] [address] [facility] [address] [place] [id number] Referral ID Status Reason Start Date Expiration Date Visits Requested Visits Authorized [id number] Authorization Not Required Specialty Services Required 4 1 1 Encounter Details Date Type Department Care Team (Late st Contact Info) Description 02/02/2024 15:30 EDT Office Visit [facility] Sleep Program - [address] [address] Study, Hsat Frequent nocturnal awakening; Excessive daytime sleepiness; Non-restorative sleep; Snoring Social History Tobacco Use Types Packs/Day Years [...] Sign Reading Time Taken Comments Blood Pressure - - Pulse - - Temperature - - Respiratory Rate - - Oxygen Saturation - - Inhaled Oxygen Concentration - - Weight 68.9 kg (152 lb) 02/02/2024 1547 EDT Height 174.1 cm (5' 8.54) 02/02/2024 1547 EDT Body Mass Index 22.75 02/02/2024 1547 EDT documented in this encounter Progress Notes * Darwin Martinez - 02/02/2024 1530 EDT Nomad # [id number] dispensed in clinic today with written and video instructions. * Mirian Gaytan MD - 02/02/2024 1530 EDT Home Sleep Apnea Test (HSAT) on 02/02/2024 FINDINGS: *The technical data were sufficient for interpretation. *The patient was found to hav intermittent e sleep disordered breathing in the form of intermittentsnoring and a few hypopneas. The respiratory event index (CHAZ) overall, was 0.8, which is normal, it was normal regardless of position, the patient spent the majority of the night in the supine position. *These results may represent not only breathing during sleep, but breathing changes during arousals, awakenings or related to movement. CHAZ (AHI) 0.8 (AASM 2012). CHAZ (AHI) 0.1 (AASM 2007). Avg 02 Sat: 98.0 %; Cristobal 02 Sat: 93 %; Time with 02 Sat < 88%: 0 minutes. RECOMMENDATIONS: *The patient will be notified by the staff at the [facility] Sleep [facility] of the results of the test. *On this night of testing, significant sleep disordered breathing was not demonstrated. Further evaluation of the patient's symptoms is recommended as clinically appropriate. *Follow-up will be arranged with Alyx Alejandro APRN, at the [facility]. Disclosures: Home Sleep Apnea Testing (HSAT) is an accepted method for the diagnosis of obstructivesleep apnea (CARLOS A) in high risk patients. HSAT is less sensitive than polysomnography for the detection of CARLOS A, as the findings are based on recording time rather than actual sleep time. Thus, if clinical suspicion of CARLOS A is high, and HSAT study is negative, polysomnography should be considered. Portions of this document may contain text elements generated through computerized voice recognition technology. Undetected computer-generated word errors are possible. Please notify the signing provider if clarification or correction is needed. Mirian Gayatn MD, [facility] This Sleep Study Report (including details) can be viewed under the Procedures Tab in the EMR ([employer]) as a scanned file attachment. If the Sleep Study Report cannot be accessed, a copy can be obtainedby contacting [facility] at [phone]. documented in this encounter Plan of Treatment Upcoming Encounters Date Type Department Care Team (Late st Contact Info) Description 11/18/2024 15:15 EST Telemedicine [facility] Neurology - [address] [address] Tracy Fuller NP [address] [place] [address], [address] [place] [address] documented as of this encounter Procedures Procedure Name Priority Date/Time Associated Diagnosis Comments SLEEP STUDY REPORT - SCANNED 02/05/2024 15:13 EDT documented in this encounter Results * SLEEP STUDY REPORT - SCANNED (02/05/2024 15:13 EDT) 02/05/2024 15:1 3 EDT Scan 2 Aquatic Ecologist PROCEDURE/MINOR HARMAN GICAL ORDERABLES documented in this encounter Visit Diagnoses Diagnosis Frequent nocturnal awakening Other sleep disturbances Excessive daytime sleepiness Non-restorative sleep Other sleep disturbances Snoring Other dyspnea and respiratory abnormality documented in this encounter Orders Sleep Center Count Last Ordered Date First Orde red Date HOME SLEEP APNEA TEST (HSAT) 1 02/02/2024 documented in this encounter Care Teams Casing Grader Relationship Specialty Start Date End Date Mauricio Solomon ND [address] [place] [address],[address] [place] [phone] PCP - General 01/29/24 documented as of this encounter
--- OUTSIDE RECORDS SUMMARY | 2024-09-03 18:07 | XMS_ITS ---
Author Organization Unknown Address [address] [place] [phone] Phone Care Team Providers Care Mercerizing Range Controller Name Role Phone FRANNY Che Attending Unavailable ARCHDEALAYNA Tolentino Primary Unavailable Results VARICELLA IGG AND IGM ANTIBO DIES* - Collect Date/Time: 02/09/2024 14:38 [facility] ID: [id number] [address] [place] [address], [phone] LOINC: 16677-9 Test Value Unit Reference Range Code Code System Flag Varicella-Zoster Ab,IgM, S Negative Negative 52164-1 [place] Varicella-Zoster Ab,IgG, S Positive 81601-2 LOIN C Varicella IgG AntibodyIndex 1.7 5403-1 LOIN C HEP C ANTIBODY WITH REFLEX P CR - Collect Date/Time: 02/09/2024 14:38 [facility] ID: [id number] [address] [place] [address], [phone] LOINC: 46118-7 Test Value Unit Reference Range Code Code System Flag Hep C Ab w Rfx PCR Negative Negative THYROID TESTING CASCADE* - C ollect Date/Time: 02/09/2024 14:38 [facility] ID: [id number] [address] [place] [address], [address] LOINC: 3016-3 Test Value Unit Reference Range Code Code System Flag TSH. 0.915 uIU/mL L=0.360 H=3.740 3014-8 LOINC HEMOGLOBIN A1C* - Collect Da te/Time: 02/09/2024 14:38 [facility] ID: [id number] [address] [place] [address], [address] LOINC: 4548-4 Test Value Unit Reference Range Code Code System Flag Hgb A1c 5.1 % L=3.8 H=5.7 4548-4 LOINC MEAN BLOOD GLUCOSE 84 mg/dL 19129-7 LOINC FERRITIN - Collect Date/Time : 02/09/2024 14:38 [facility] ID: [id number] [address] [place] [address], [address] LOINC: 2276-4 Test Value Unit Reference Range Code Code System Flag FERRITIN 58 ng/mL L=8 H=388 2276-4 LOINC HIV 1/2 ANTIGEN AND ANTIBODY SCREEN - Collect Date/Time: 02/09/2024 14:38 [facility] ID: [id number] [address] [place] [address], [phone] LOINC: 88120-3 Test Value Unit Reference Range Code Code System Flag HIV 1/2 Antigen andAntibody Negative Negative HEP B SURF ANTIGEN* - [facility] Date/Time: 02/09/2024 14:38 [facility] ID: [id number] [address] [place] [address], [id number] LOINC: 5196-1 Test Value Unit Reference Range Code Code System Flag Hep B Surface Ag Negative Negative SYPHILIS SEROLOGY* - Collect Date/Time: 02/09/2024 14:38 [facility] ID: [id number] [address] [place] [address], [id number] LOINC: 52519-8 Test Value Unit Reference Range Code Code System Flag Syphilis Serology Negative Negative RUBELLA IGG ANTIBODY - [facility] Date/Time: 02/09/2024 14:38 [facility] ID: [id number] [address] [place] [address] [place], [id number] LOINC: 98821-4 Test Value Unit Reference Range Code Code System Flag Rubella IgG Ab Negative See Note TYPE AND ANTIBODY S CREEN* - Collect Date/Time: 02/09/2024 14:38 [facility] ID: [id number] [address] [place], [place], [phone] LOINC: 882-1 Test Value Unit Reference Range Code Code System Flag Blood Group O 883-9 LOINC Rh (D) POSITIVE 15853-3 LOINC Antibody Screen NEGATIVE 1005-8 LOINC HEMATOLOGY* - Colle ct Date/Time: 02/09/2024 14:38 [facility] ID: [id number] [address] [place], [place], [phone] LOINC: 50135-8 Test Value Unit Reference Range Code Code System Flag WBC 8.90 th/cmm L=5.00 H=10.00 6690-2 LOINC NEUT % 78.5 % L=40.0 H=80.0 LYMPH % 15.4 % L=10.0 H=50.0 MONO % 4.7 % L=2.0 H=12.0 44262-5 LOINC EOS % 0.8 % L=0.0 H=8.0 BASO % 0.2 % L=0.0 H=3.0 IG % 0.4 % L=0.0 H=1.1 2514-8 LOINC NRBC % 0.0 % L=0.0 H=0.0 76715-9 LOINC NEUT abs count 7.0 th/cmm L=1.6 H=8.4 751-8 LOINC LYMPH abs count 1.4 th/cmm L=1.5 H=4.0 731-0 LOINC L MONO abs count 0.4 th/cmm L=0.2 H=1.0 742-7 LOINC EOS abs count 0.1 th/cmm L=0.0 H=0.5 711-2 LOINC BASO abs count 0.0 th/cmm L=0.0 H=0.2 704-7 LOINC IG abs count 0.0 th/cmm L=0.0 H=0.1 54384-3 LOINC NRBC abs count 0.0 mil/cmm L=0.0 H=0.0 18576-4 LOINC RBC 4.03 mil/cmm L=3.90 H=5.40 789-8 LOINC HEMOGLOBIN 12.9 gm/dL L=12.0 H=16.0 718-7 LOINC HEMATOCRIT 37 % L=37 H=47 4544-3 LOINC MCV 91 fL L=82 H=92 787-2 LOINC MCH 32.0 pg L=27.0 H=31.0 785-6 LOINC H MCHC 35.3 % L=32.0 H=36.0 786-4 LOINC RDW-SD 39.3 fL L=39.0 H=49.0 788-0 LOINC PLATELET COUNT 220 th/cmm L=150 H=450 777-3 LOINC Social History Type Status Start Date End Date Code Code Syst em Smoking History Unknown if ever smoked [id number] Sex Female Hospital Discharge Instructions Should you have any questions prior to discharge, please contact a member of your healthcare team. If you have left the hospital and have any questions, please contact your primary care physician. Reason For Referral No Data Found Plan of Treatment No Data Found Encounters Encounter Diagnosis Start Date Code Code Sys tem Encounter for screening for isoimmunization 02/09/2024 SNOMED-CT Personal Care Team Section Performer Name Performer Role Active Date Inactive Da te
--- OUTSIDE RECORDS SUMMARY | 2024-09-03 18:07 | XMS_ITS | Encounter Summary ---
Author Organization [facility] Address [address] [place] [address] Care Team Providers Care Supervisor Contact And Service Clerks Name Role Phone Unknown, Provider Primary Care Provider [phone] Encounter Details Date Type Department Care Team (Latest Contact Info) Description 02/17/2021 16:08 EDT - 02/19/2021 10:58 EDT Hospital Encounter [facility] Maternity Unit [address] [place] [address] Unknown, Provider, Discharge Disposition: Home or Self Care Social History Tobacco Use Types Packs/Day Years Used Date Smoking Tobacco: Never Assessed Interpersonal Safety Answer Date Record ed Physically Hurt Never 02/18/2021 Verbally Threaten Not on file 02/18/2021 Sex and Gender Information Value Date Recorded Sex Assigned at Not on file Gender Identity Female 01/29/2024 13:24 EDT Sexual Orientation Not on file documented as of this encounter Discharge Disposition Disposition Code Departure Means Destination Home or Self Custodial documented in this encounter Plan of Treatment Upcoming Encounters Date Type Department Care Team (Late st Contact Info) Description 11/18/2024 15:15 EST Telemedicine [facility] Neurology - [address] [place] [address] [place], [place] [phone] Tracy Fuller NP 1 [facility] [address] [place] [phone] documented as of this encounter Visit Diagnoses Not on filedocumented in this encounter Care Teams Supervisor Contact And Service Clerks Relationship Specialty Start Date End Date Unknown, Provider, PCP - General 07/14/17 01/28/24 documented as of this encounter
--- OUTSIDE RECORDS SUMMARY | 2024-09-03 18:07 | XMS_ITS | Encounter Summary ---
Author Organization [facility] Address [address] [place] [address] Care Team Providers Care Quantitative Research Analyst Name Role Phone Mauricio Solomon ND Primary Care Provider + Reason for Referral * Sleep Study (Urgent) - Authorization Not Required Specialty Diagnoses / Procedures Referred By Kim dickerson Referred To Contact Sleep Medicine Diagnoses Frequent nocturnal awakening Excessive daytime sleepiness Non-restorative sleep Snoring Procedures HOME SLEEP APNEA TEST (HSAT) [place] SLEEP STD AIRFLOW HRT RATE&O2 SAT EFFORT UNATT Alyx Alejandro NP 1 [facility] Level 2 [place] [address] [facility] [address] [place] [address] Referral ID Status Reason Start Date Expiration Date Visits Requested Visits Authorized [id number] Authorization Not Required Specialty Services Required 4 1 1 Reason for Visit * Reason Comments New Patient Visit * Consult (Routine) - Authorization Not Required Specialty Diagnoses / Procedures Referred By Kim dickerson Referred To Contact Sleep Medicine Diagnoses Other fatigue Mauricio Solomon ND [address] [place] [address],[address] [place] [address] [facility] [address] [place] [address] Referral ID Status Reason Start Date Expiration Date Visits Requested Visits Authorized [id number] Authorization Not Required 1 1 Encounter Details Date Type Department Care Team (Late st Contact Info) Description 01/30/2024 9:00 EDT Office Visit [facility] - [address] [id number] Alyx Alejandro NP 1 [facility], Level 2 [place] [address] Frequent nocturnal awakening (Primary Dx); Excessive daytime sleepiness; Non-restorative sleep; Snoring Social [...] Sign Reading Time Taken Comments Blood Pressure 130/80 01/30/2024 0859 EDT Pulse 78 01/30/2024 0859 EDT Temperature - - Respiratory Rate 14 01/30/2024 0859 EDT Oxygen Saturation 100% 01/30/2024 0859 EDT Inhaled Oxygen Concentration - - Weight 68.9 kg (152 lb) 01/30/2024 0859 EDT Height 174.1 cm (5' 8.54) 01/30/2024 0859 EDT Body Mass Index 22.75 01/30/2024 0859 EDT documented in this encounter Patient Instructions * Patient Instructions* Alyx Alejandro NP - 01/30/2024 9:00 EDT Referrals for Mandibular Advancement Devices (Oral Appliances, Dental Appliances) for treatment of Obstructive Sleep Apnea Examples of devices include: TAP Device, [place] Appliance, [place] Appliance The following is a list of some dentists that are members of The [employer] that routinely make these devices Sal Amaya, DMD: [place], Mykel Chua, DDS: [address] [place] [address], Xavier Urrutia, DMD: 2 [facility] James Mccormick, DMD ([facility] [phone]) Raj Aguirre DMD ([facility] [phone]) Mitch Burgos DMD ([place] [phone], [place] [phone]) Mykel Kimble DDS ([place] [phone]) Other Providers of Mandibular Advancement Devices: Brandon Mcknight DDS ([place] [phone]) Jd Lopez DDS ([place] [phone]) documented in this encounter Progress Notes * Alyx Alejandro NP - 01/30/2024 0900 EDT CHIEF COMPLAINT: Numerous nocturnal awakenings, excessive daytime sleepiness, snoring, non-restorative sleep HISTORY OF PRESENT ILLNESS: Sultana Driver is a 38 y/o female with a medical history of migraine and BMI: 22.75. She was referred to [facility] by Mauricio Solomon ND due to non- restorative sleep and fatigue. All symptoms started after having her first child about 3 years ago. Sultana is currently 11weeks and reports her symptoms have all worsened during . Sultana goes to sleep between 8-9:00 PM and wakes up between 7-8:30 AM. The patient sleeps in bed with her 3 year old. She sleeps in a flat bed in the supine or lateral position. Her sleep environmentis comfortable and she does not have difficulty initiating sleep most of the time. Finds it more difficult to fall asleep if she stays up later in the evening. The pt wakes up at least once a night to use the restroom and wakes up 3-20 times nightly in total. Some nocturnal awakenings are due to child sleeping in her bed, and other times occur spontaneously. She explains that her child spent timein the NICU after which resulted in added anxiety and sleep difficulty. 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 Sultana naps about once a week, however finds it difficult to fall asleep despite feeling tired. The patient has a prescription for zolpidem 5mg and has taken it twice since it was prescribed. The pt took it last night and still experienced numerous awakenings. Sultana snores. There are no witnessed apneic events. She sleeps separately from her partner due to snoring, which started during first . She may wake up as a result of snoring, mostly duringthe second half of the night nightly. There is no history of bruxism, nocturnal GERD, nocturnal diaphoresis, kicking or other abnormal motor activity associated with sleep. Denies RLS. Experiences mild nasal congestion with . Reports oral dryness QAM. There is no h/o airway surgery. Has braces in high school to straighten teeth. Sultana wakes up with a headache a few times a month, which resolves as the day goes on. The pt alsoexperiences migraine anytime of day and has a referral to neurology for further evaluation. She does not feel refreshed upon waking up. She experiences daytime somnolence daily. She does not unintentionally fall asleep. She does not have trouble maintaining wakefulness while driving. The pt reportspoor long-term memory, but is unsure if this is a result of her sleep quality. Poor sleep can limitability to concentrate and focus. Poor sleep results in increased anxiety and depression. The patient is established with a therapist. She reports low energy and feeling grumpy. States, I feel outof it. Godfrey: 7 (01/30/2024 9:00) Habits Exercise: Walks every morning 20-40 minutes. Hikes in the summer Caffeine: 1 cup of black tea QAM Alcohol: No, currently Tobacco: No Cannabis: Rare Illicit drugs: No Pertinent History Diabetes: No Thyroid dz: No History of seizures: 2 seizures at age 3. Suspects due to head injury Menstrual cycle: regular period prior to Family history of sleep disorders: Suspects both parents have sleep apnea, but neither are diagnosed Weight: 152 lbs There is no height or weight on file to calculate BMI. Wt Readings from Last 5 Encounters: No data found for Wt There is no problem list on file for this patient. No past medical history on file. No current outpatient medications on file. No current facility-administered medications for this visit. Physical Exam: General: well developed, well nourished, female who is ambulatory and in no apparent distress. Head: atraumatic, normocephalic Eyes: PERRL, sclerae are anicteric, EOMI. There is no lid lag or conjunctival injection. Ears: The external ears are unremarkable. The canals are clear. The TM's are campbell and glistening bilaterally. Nose: The nares are patent without mucosal lesion or obstruction. Mouth: The lips are without lesion. The oropharynx reveals a class 2 airway. The dentition is in good repair. There are no mucosal lesions evident. There is no retrognathia Neck: Supple without adenopathy, the trachea is midline. The thyroid is not enlarged, tender, or nodular. Resp: Auscultation of the chest reveals clear breath sounds throughout. Heart: Regular rate and rhythm, without murmurs, rubs or gallops. Abdomen: Normal active bowel sounds Extremities: There is no edema. Neurologic: Gait is normal. Speech fluent. Skin: Warm and dry. Psych: Alert, oriented and cooperative. ASSESSMENT Sultana Driver is a 38 y/o female, currently 11 weeks , who presents today to establish care. Clinical suspicion for sleep apnea as the pt endorses numerous nocturnal awakenings, non-restorative sleep, snoring, and excessive daytime sleepiness. She explains that her symptoms initially started during her first 3 years ago, improved post , and have become progressively worse during her second . Sultana also endorses periods of insomnia with difficulty maintaining sleep and numerous nocturnal awakenings nightly. She endorses increased anxiety and sees a therapist, however suspects this influences her daytime symptoms, which is reasonable. Sleep hygiene was discussed in detail as outlined below. Possible that her symptoms are a result of sleep apnea, however can consider a referral to sleep behavioral psychology to discuss insomnia with persistent symptoms pending results of HSAT. She was also encouraged to continue to discuss symptoms with PCP and therapist. She has a prescription forzolpidem, which she has only used twice. Would not recommend this on a routine basis, especially during due to risk for side effects. PLAN: 1) HSAT- ordered urgently due to status. Patient will consider treatment options. Would like to make decision based on HSAT results. Will consider CPAP and MAD. Counseling: - The pathophysiology and health consequences of obstructive sleep apnea were discussed in detail with the patient today. - We discussed treatment options for obstructive sleep apnea including: Weight loss, positional treatments, CPAP, mandibular advancement devices, and surgical intervention. - Sleep hygiene was discussed, which encouraged 7-9 hours of sleep nightly, keeping a routine sleepschedule, avoiding caffeine, alcohol, and screens in proximity to sleep, maintaining a comfortable sleep environment, and only getting into bed when tired. - May consider keeping a sleep diary - Driving safety was reviewed- patient voices understanding - Exercise is recommended I spent a total of 62 minutes on the date of this encounter meeting with the patient and reviewing documentation/coordinating care as described in the above note. They are to contact the [facility] Sleep Program if sleep quality deteriorates, or if drowsiness becomesmore problematic, otherwise I???ll plan a follow-up visit after HSAT. Portions of this document may contain text elements generated through computerized voice recognition technology. Undetected computer-generated word errors are possible. Please notify the signing provider if clarification or correction is needed. Alyx Alejandro DNP, [employer] documented in this encounter Plan of Treatment Upcoming Encounters Date Type Department Care Team (Late st Contact Info) Description 11/18/2024 15:15 EST Telemedicine [facility] Neurology - [address] [id number] Tracy Fuller NP [address] [place] [address] 2 [place] [address] Scheduled Orders Name Type Priority Associated Diagnoses Orde r Schedule HOME SLEEP APNEA TEST (HSAT) Sleep Center Urgent Frequent nocturnal awakening Excessive daytime sleepiness Non-restorative sleep Snoring Expected: 02/01/2024 (Approximate), Expires: 01/29/2025 documented as of this encounter Visit Diagnoses Diagnosis Frequent nocturnal awakening- Primary Other sleep disturbances Excessive daytime sleepiness Non-restorative sleep Other sleep disturbances Snoring Other dyspnea and respiratory abnormality documented in this encounter Historical Medications * This list may reflect changes made after this encounter. Medication Sig Dispensed Refills Start Date End Date MAGNESIUM GLYCINATE ORAL Take 400-800 mg by mouth daily. PNV 119-iron fum-folic acid 29 mg iron- 1 mg tablet Take 1 Tablet by mouth daily. Innate brand docosahexaenoic acid (DHA ORAL) Take 500 mg by mouth daily. Cholecalciferol, Vitamin D3, (VITAMIN D3) 50 mcg capsule Take 1 Capsule by mouth daily. pyridoxine, vitamin B6, (VITAMIN B6) 50 mg tablet Take 1 Tablet by mouth daily. UNABLE TO FIND Med Name: SEGUNDO 550 mg, 200 mg Danilo 07/18/2024 riboflavin, vitamin B2, 400 mg tablet Take 1 Tablet by mouth daily. 07/18/2024 zolpidem (AMBIEN) 5 mg tablet take 1 tablet by mouth every day at bedtime as needed for sleep 12/07/2023 07/18/2024 citalopram (CELEXA) 20 mg tablet TAKE 1/2 TABLET ORALLY ONCE DAILY FOR 6 DAYS THEN 1 TABLET DAILY 12/07/2023 07/18/2024 added in this encounter Care Teams Quantitative Research Analyst Relationship Specialty Start Date End Date Mauricio Solomon ND [address] [place] [address],[address] [place] [address] PCP - General 01/29/24 documented as of this encounter
--- OUTSIDE RECORDS SUMMARY | 2024-09-03 18:08 | XMS_ITS ---
Author Organization Unknown Address [address] [place] [phone] Phone Care Team Providers Care Full Stack Java Developer Name Role Phone SUZIE Evangelista Attending Unavailable ARCHDEACON JONI Tolentino Primary Unavailable Results VAGINAL SMEAR EVALUATION* - Collect Date/Time: 02/14/2024 13:00 [facility] ID: [id number] [address] [place] [address], [phone] LOINC: 23266-5 Test Value Unit Reference Range Code Code System Flag WBC s few Yeast. None Hyphae N/A Clue cells Present T[place] RIVER SCORE 8 URINALYSIS WITH MICROSCOPIC* - Collect Date/Time: 02/14/2024 13:00 [facility] ID: [id number] [address] [place] [address], [phone] LOINC: 40653-1 Test Value Unit Reference Range Code Code System Flag COLLECTION MODE: CLEAN CATCH 39691-8 LOINC Color YELLOW yellow 5778-6 LOINC Appearance CLEAR clear 5767-9 LOINC Glucose urine NEGATIVE negative mg/dl 67560-5 LOINC Bilirubin NEGATIVE negative 5770-3 LOINC Ketones NEGATIVE negative mg/dl 2514-8 LOINC Spec gravity 1.010 1.003 - 1.030 5811-5 LOINC pH urine 7.5 5.0 - 7.0 2756-5 LOINC A Protein NEGATIVE negative mg/dl 68059-5 LOINC Urobilinogen 0.2 <or= 1 EU/dl 89211-5 LOINC Nitrite NEGATIVE negative 5802-4 LOINC Blood NEGATIVE negative 5794-3 LOINC Leukocytes NEGATIVE negative 58518-2 LOINC WBCs 0-5 0-5 / hpf 61934-4 LOINC RBCs none 0-5 / hpf Epith cells 0-5 0-5 / hpf 25183-1 LOINC Cell types squam+trans Crystals none none Bacteria minimal none Mucus none none Casts none none /lpf Other CHLAMYDIA/GC AMPLIFIED PROBE * - Collect Date/Time: 02/14/2024 13:00 [facility] ID: [id number] [address] [place], [place], [phone] LOINC: 47547-3 Test Value Unit Reference Range Code Code System Flag GC Result Negative Negative Chlamydia Result Negative Negative Social History Type Status Start Date End Date Code Code Syst em Smoking History Unknown if ever smoked [id number] Sex Female Hospital Discharge Instructions Should you have any questions prior to discharge, please contact a member of your healthcare team. If you have left the hospital and have any questions, please contact your primary care physician. Reason For Referral No Data Found Plan of Treatment No Data Found Encounters Encounter Diagnosis Start Date Code Code Sys tem Pruritus vulvae 02/14/2024 SNOMED-CT Personal Care Team Section Performer Name Performer Role Active Date Inactive Da te
--- OUTSIDE RECORDS SUMMARY | 2024-09-03 18:08 | XMS_ITS ---
Author Organization Unknown Address [address] [place] [phone] Phone Care Team Providers Care Bread Racker Name Role Phone FRANNY Che Attending Unavailable ARCHDEACON JONI Tolentino Primary Unavailable Social History Type Status Start Date End Date Code Code Syst em Smoking History Unknown if ever smoked [id number] Sex Female Hospital Discharge Instructions Should you have any questions prior to discharge, please contact a member of your healthcare team. If you have left the hospital and have any questions, please contact your primary care physician. Reason For Referral No Data Found Plan of Treatment No Data Found Encounters Encounter Diagnosis Start Date Code Code Sys tem Other specified re lated conditions, third trimester 06/21/2024 SNOMED-CT Personal Care Team Section Performer Name Performer Role Active Date Inactive Da te
[2024-09-03 19:19] VITALS: BP 177/101; PULSE 89; TEMP 37.1
[2024-09-03 19:27] VITALS: BP 157/99; PULSE 63
[2024-09-03 19:57] VITALS: BP 170/103
[2024-09-03 20:06] VITALS: BP 147/94; PULSE 63
--- NOTE | 2024-09-03 20:11 | HPE_ITS ---
Date of service: 09/03/24 Time of Service: 20:11 Assessment and Plan Assessment and plan (1) hypertension: Status: Acute Assessment and plan: Pt 2w of IUFD at 39w6d EGA. BP elevated on arrival to . Unclear if delayed preeclampsia or fluid shifts. Will administer Labetalol 100mg PO now and obtain CMP and CBC, urine protein. History of Present Illness History of Present Illness Chief Complaint: feeling off today, elevated BP at home. 2w PP of IUFD. Narrative: Pt is a 39yo L1 female who was diagnosed with a IUFD on 08/21/24 at 39w6d EGA. Pt had had an unremarkable course under the care of [facility] . She was admitted the morning of 08/21/24 for an induction of labor and had a of a non-viable female on 08/22/24. Suspected cause of IUFD is umbilical cord event. She was discharged to home on PPD1. Normal admission CBC and CMP. No intrapartum and PP BPs. Pt awoke this morning reporting that she felt different. She called her CPM Adrienne Medina who did a home visit. Her DBP was elevated 95 and SBP 160s. I spoke to Ms. Medina and recommended that the pt present to [facility] in am for recheck of BP. However pt repeated BP and had SBP in 170s and DBP in 105 range. She was advised to present to this evening. Review of Systems Narrative: Had been feeling well prior to this am. Constitutional Constitutional: Reports as per HPI, Denies difficulty sleeping, Denies excessive sweating and Reports headache(s) (pt reports low grade headache hx. resolved with Acetaminophen) Eyes Eyes: Reports blurry vision (while driving to hospital. L streaks of light brief - resolved on admit) ENT Ears, Nose, Mouth, and Throat: Reports headache(s) (pt reports low grade headache hx. resolved with Acetaminophen) Cardiovascular Cardiovascular: Reports system reviewed and no additional complaints, except as documented, Denies leg edema, Reports lightheadedness (earlier today. Brief episode.none for rest of day) and Denies dyspnea Respiratory Respiratory: Reports as per HPI and Denies dyspnea Gastrointestinal Gastrointestinal: Denies abdominal pain, Denies change in bowel habits, Denies change in stool character, Denies nausea and Denies vomiting Genitourinary Genitourinary: Reports menorrhagia (lochia increased today - no clots. heavy flow. dark red blood ), Denies dysuria and Denies urinary urgency Musculoskeletal Musculoskeletal: Reports system reviewed and no additional complaints, except as documented and Denies abnormal gait Integumentary/Breasts Skin/Breast: Denies breast pain (mild production stopped last week. No breast issues.) Neurologic Neurologic: Denies abnormal gait and Reports headache(s) (pt reports low grade headache hx. resolved with Acetaminophen) Psychiatric Psychiatric: Reports system reviewed and no additional complaints, except as documented Endocrine Endocrine: Denies excessive sweating PFSH All Active Problems (Updated 09/03/24 @ 20:26 by Yareli Ahumada MD) hypertension (Acute) Anxiety (Chronic) Vaginal delivery (Acute) 08/22/2024. Term stillbirth. Labor induction demise, greater than 22 weeks, antepartum (Acute) Full-term demise Social History Smoking/Tobacco Use Status: Never Smoking risk assessment performed?: Yes Alcohol Intake: never Substance use type: does not use Household members: spouse, children and other Details: H - Mehdi, S - Joe Housing: house Number of Children: 1 Education Level: college Do you need help understanding health information?: Never current occupation: [employer]. Do you feel safe at home: Yes Do you feel safe in your relationship?: Yes History History 2 3 Para 1 Hx # Term Pregnancies 1 Multiple births Hx # Pregnancies Ectopic pregnancies AB induced 1 Hx Number of Living Children 1 AB spontaneous Past Pregnancies Del. Date GA/Weeks # Preg Succ Route Wgt Sex Labor Lgth Anesth esia Location Prov Complic 01/11/19 8 02/11/21 40 No Yes vaginal 7 lb 6 oz Male 20hrs 08/22/24 No No vaginal Female Mildred Adam son Delivery Date: 01/11/19 Last Updated by: Teresa Ray MD ETOP Delivery Date: 02/11/21 Last Updated by: Teresa Ray MD Home , pushed 1.5hrs Joe Delivery Date: 08/22/24 Last Updated by: Yareli Ahumada MD IUFD at 39w6d. ? cord accident. Placental path pending. No autopsy performed. Meds Allergies and Home Medications Home Medications ?Medication ?Instructions ?Recorded ?Confirmed ?Type D3 Liquid 25 mcg PO DAILY 08/21/24 08/21/24 History Danilo Nataliya 550 mg PO DAILY 08/21/24 08/21/24 History pyridoxine (vitamin B6) 50 mg 50 mg PO DAILY 08/21/24 08/21/24 History tablet riboflavin (vitamin B2) 400 mg 400 mg PO DAILY 08/21/24 08/21/24 History tablet ibuprofen 800 mg tablet 800 mg PO Q8H PRN #45 tabs 08/23/24 Rx lorazepam 0.5 mg tablet (Ativan) 0.5 mg PO TID PRN #10 tabs 08/23/24 Rx Exam Narrative Exam Narrative: Sitting in semi-fowlers in bed. No distress. Const General: comfortable Nutritional Appearance: well nourished Orientation: alert, awake and oriented x3 Neck Neck: normal visual inspection Chest Chest: deferred Resp Effort & Inspection: normal respiratory effort Auscultation: clear to auscultation bilaterally Cardio Rate: regular rate Rhythm: regular rhythm GI Palpation: soft, no hepatosplenomegaly, no masses and nontender Rectal Exam - female: deferred General: deferred Skin General skin exam: no rashes or lesions noted Neuro General: moves all extremities and deep tendon reflexes 2+ bilaterally (1+. No clonus) Cognition: normal cognition Speech: speech normal Gait: normal gait Motor: muscle tone normal throughout Extrem General: normal to inspection and full ROM Psych Appearance: grossly normal Mental Status: mental status grossly normal Speech and Movement: speech and movement normal Mood: congruent mood Affect: normal affect Attitude: cooperative Thought Process: normal Thought Content: normal Insight: insight good Judgment: judgment good Results Labs 09/03/24 Unknown 09/03/24 19:35 Last Vital Signs Temp 98.7 F 09/03/24 19:19 Pulse 63 09/03/24 20:06 BP 147/94 H 09/03/24 20:06 Time Spent Time spent with Patient: <40 minutes Time was spent: preparing to see the patient(eg.review tests), obtaining and/or reviewing separately otained hiistory, ordering medications,tests, procedures and indepentently interpreting results
[2024-09-03] MEDS: Labetalol 100 MG TAB PO (20:12)
[2024-09-03 20:16] LABS: HCT 38.5 % (36.0-46.0); HGB 13.5 g/dL (11.2-15.7); MCH 32.4 pg (27.0-33.0); MCHC 35.1 % (32.0-36.0); MCV 92 fL (80-95); MPV 8.7 fL (8.0-11.0); Platelet Count 313 10^3/uL (130-400); RBC 4.17 10^6/uL (3.93-5.22); RDW 11.4 % (11.7-14.6); RDW-SD 38.7 fL; WBC 6.96 10^3/uL (4.4-10.8)
[2024-09-03 20:32] LABS: ALT 41 U/L (14-59); AST 18 U/L (15-37); Albumin 3.3 g/dL (3.4-5.0); Alkaline Phosphatase 121 U/L (46-116); Anion Gap 8.7 mmol/L (3-11); BUN 9 mg/dL (7-18); Bilirubin, Total 0.37 mg/dL (0.2-1.0); CO2 26.3 mmol/L (21.0-32.0); CREATININE 0.6 mg/dL (0.55-1.02); Calcium 9.2 mg/dL (8.5-10.1); Chloride 104 mmol/L (98-107); Estimated GFR 115.57 (mL/min/1.73m2); Glucose 129 mg/dL (74-106); Potassium 3.6 mmol/L (3.5-5.1); Sodium 139 mmol/L (136-145); Total Protein 6.9 g/dL (6.4-8.2)
[2024-09-03 20:33] VITALS: BP 164/100
[2024-09-03 20:42] LABS: TSH 1.82 uIU/mL (0.36-3.74)
[2024-09-03 20:56] VITALS: BP 135/89
--- NOTE | 2024-09-03 23:15 | PGE_ITS ---
Date of Service Date of service: 09/03/24 Time of Service: 23:15 Assessment and Plan Assessment and plan (1) hypertension: Status: Acute Assessment and plan: No evidence of preeclampsia by labs. Patient received 100 mg of oral labetalol with satisfactory response. Her blood pressure improves when resting. She was counseled to take her blood pressure twice daily and notify me of the results in the morning. She will also be given prescription for labetalol 100 mg twice daily. Plan is to follow-up in the office as needed. Subjective Subjective Patient reports: feels better Exam Narrative Exam Narrative: BP improved after 100mg PO Labetalol. Labs returned as normal. Urine protein neg. Const General: no acute distress Resp Effort & Inspection: normal respiratory effort Objective Last Vital Signs Temp 98.7 F 09/03/24 19:19 Pulse 63 09/03/24 20:06 BP 135/89 09/03/24 20:56 Laboratory Results - last 24 hr 09/03/24 20:10 WBC 6.96 RBC 4.17 Hgb 13.5 Hct 38.5 MCV 92 MCH 32.4 MCHC 35.1 RDW 11.4 L Plt Count 313 MPV 8.7 Sodium 139 Potassium 3.6 Chloride 104 Carbon Dioxide 26.3 Anion Gap 8.7 BUN 9 Creatinine 0.6 Est GFR (CKD-EPI 2020) 115.57 Glucose 129 H Calcium 9.2 Total Bilirubin 0.37 AST 18 ALT 41 Alkaline Phosphatase 121 H Total Protein 6.9 Albumin 3.3 L TSH 1.82 Objective Narrative Objective Narrative: Pt comfortable and relieved that labs are normal. She will f/u in am with me regarding BP. Time Spent with Patient Time Spent with Patient: 25-34 minutes Time was spent: preparing to see the patient(eg.review tests), obtaining and/or reviewing separately otained hiistory, ordering medications,tests, procedures and referring, communicating with other health assisted living care manager
== END 2024-09-03 21:21 ==
LOC: BCD 18:50 → OBS 21:25
PROVIDERS: Visit Provider Obstetrics & Gynecology Gynecology
DX: O16.5 Unspecified maternal hypertension, complicating the puerperium (principal)
CPT/HCPCS: 80053; 85027; 99211; 84443; G0378

== ENCOUNTER 2024-09-05 09:36 | Outpatient (CLI) | payer MEDICAID, SELFPAY ==
[2024-09-05 11:10] VITALS: BP 168/107; PULSE 74; RESP 15; TEMP 36.8; O2SAT 99
[2024-09-05 11:47] LABS: HCT 41.3 % (36.0-46.0); HGB 14.1 g/dL (11.2-15.7); MCH 32.2 pg (27.0-33.0); MCHC 34.1 % (32.0-36.0); MCV 94 fL (80-95); MPV 8.8 fL (8.0-11.0); Platelet Count 315 10^3/uL (130-400); RBC 4.38 10^6/uL (3.93-5.22); RDW 11.5 % (11.7-14.6)
[2024-09-05 12:00] VITALS: BP 147/97; BP 168/107; PULSE 63; PULSE 74; RESP 16; TEMP 36.6; O2SAT 99
[2024-09-05] MEDS: NIFEdipine-CR 30 MG TABCR PO (12:00)
[2024-09-05 12:17] LABS: ALT 37 U/L (14-59); AST 18 U/L (15-37); Albumin 3.3 g/dL (3.4-5.0); Alkaline Phosphatase 105 U/L (46-116); BUN 12 mg/dL (7-18); Bilirubin, Total 0.56 mg/dL (0.2-1.0); CREATININE 0.8 mg/dL (0.55-1.02); Calcium 9.2 mg/dL (8.5-10.1); Chloride 105 mmol/L (98-107); Estimated GFR 94.87 (mL/min/1.73m2); Glucose 97 mg/dL (74-106); Potassium 4.4 mmol/L (3.5-5.1); Sodium 139 mmol/L (136-145); Total Protein 7.1 g/dL (6.4-8.2)
[2024-09-05 12:35] VITALS: BP 150/95; PULSE 72
[2024-09-05 13:37] LABS: PROTEIN 8.9 mg/dL; Prot/Crea Ur Ratio 0.28
[2024-09-05 13:50] VITALS: BP 138/89; PULSE 73
[2024-09-05 14:30] VITALS: BP 147/94; PULSE 81
--- NOTE | 2024-09-05 14:51 | PGE_ITS ---
Date of Service Date of service: 09/05/24 Time of Service: 12:00 Assessment and Plan Assessment and plan (1) hypertension: Status: Acute Assessment and plan: Pt's BPs have improved since her arrival and treatment with nifedipine XR. Repeats have been 140-150s/90s. We discussed how nifedipine and labetalol work differently and have different peaks and half lives of concentration. Therefore nifedipine XR is more likely to maintain a steady level of medication and keep her BPs more stable. It has been several hours since she took it and she denies significant side effects. We also discussed PEC and HTN and concerns around that. Currently her labs are normal. Her H/H is also stable and no e/o infection. We reviewed s/s and reasons to call. She appreciates the offer to make a f/u visit in the office tomorrow with Dr. Rodriguez in case she develops unwanted side effects or repeat elevated BPs. Subjective Subjective Interval history since last seen: Pt is 2wks s/p NVD of 39.6 demise. She comes in due to elevated BPs at home. She started Labetalol after her visit 2 days ago. She says that it controls her BP for about 6hrs and then they go back up. She also reports feeling awful while on it. She has a headache and feels kind of woozy. This am she wasn't going to take it but then her BP was high so she took 100mg and still got a headache so she took excedrin which has helped the headache. She was also a bit concerned because her bleeding had slowed down to just a small amount of brown discharge and then when she woke up monday am she had some bright red blood that was gushing. She says she only had to change pads 4-5x throughout the day and they were not totally soaked. She experienced some sharp pains in her pelvis/abdomen but they were not super strong or consistent. Last night the bleeding started to slow down and is minimal today with no further pain. She denies fever or unusual discharge otherwise. She feels she is doing ok emotionally. She has good support from her family and friends. She is grieving the loss but hasn't focused much on the process yet. She has an appt with Dr. Rodriguez next week during which she hopes to process that more fully and go over placental pathology. Exam Const General: cooperative, healthy appearing and no acute distress [facility] Head: normocephalic and atraumatic Ears: hearing grossly normal bilaterally Resp Effort & Inspection: normal respiratory effort and able to speak in complete sentences Neuro General: patient alert and patient awake Psych Appearance: grossly normal Mental Status: mental status grossly normal Speech and Movement: speech and movement normal Affect: normal affect Attitude: cooperative Thought Process: normal Thought Content: normal Objective Last Vital Signs Temp 98.2 F 09/05/24 11:10 Pulse 74 09/05/24 11:10 Resp 15 09/05/24 11:10 BP 168/107 H 09/05/24 11:10 Pulse Ox 99 09/05/24 11:10 Laboratory Results - last 24 hr 09/05/24 09/05/24 11:37 12:35 WBC 9.20 RBC 4.38 Hgb 14.1 Hct 41.3 MCV 94 MCH 32.2 MCHC 34.1 RDW 11.5 L Plt Count 315 MPV 8.8 Sodium 139 Potassium 4.4 Chloride 105 Carbon Dioxide 26.0 Anion Gap 8.0 BUN 12 Creatinine 0.8 Est GFR (CKD-EPI 2020) 94.87 Glucose 97 Calcium 9.2 Total Bilirubin 0.56 AST 18 ALT 37 Alkaline Phosphatase 105 Total Protein 7.1 Albumin 3.3 L Ur Random Creatinine 30.90 U Random Total Protein 8.9 U [place] Prot/Creat Ratio 0.28 ABO/Rh O Positive Antibody Screen NEGATIVE Time Spent with Patient Time Spent with Patient: 35-49 minutes Time was spent: preparing to see the patient(eg.review tests), obtaining and/or reviewing separately otained hiistory, ordering medications,tests, procedures, referring, communicating with other health career technical supervisor, indepentently interpreting results and counseling the patient
[2024-09-05 15:00] VITALS: BP 150/89; PULSE 66
== END 2024-09-05 15:30 ==
LOC: BCD 09:37 → OBS 10:58
PROVIDERS: Visit Provider Obstetrics & Gynecology
DX: O16.5 Unspecified maternal hypertension, complicating the puerperium (principal)
CPT/HCPCS: 36415; 80053; 85027; 86850; 86900; 86901; 99211; 82565; 84156; G0378

== ENCOUNTER 2024-09-06 15:48 | Observation (INO) | payer MEDICAID, SELFPAY ==
[2024-09-06 16:55] VITALS: BP 160/106; PULSE 67; RESP 16; TEMP 36.9; O2SAT 99
[2024-09-06] MEDS: NIFEdipine-CR 30 MG TABCR PO (17:17)
[2024-09-06 17:51] VITALS: BP 157/94; PULSE 61; RESP 16; TEMP 36.5; O2SAT 97
[2024-09-06 18:18] VITALS: BP 154/91; PULSE 68; RESP 16; TEMP 36.6; O2SAT 97
--- NOTE | 2024-09-06 18:59 | HPE_ITS ---
Date of service: 09/06/24 Time of Service: 19:00 Assessment and Plan Assessment and plan (1) Vaginal delivery: Status: Acute Assessment and plan: Patient is 2 weeks status post labor induction for a term stillbirth. She is grieving appropriately her loss. (2) Preeclampsia: Status: Acute Assessment and plan: Patient appears to have developed preeclampsia with severe variability blood pressures. This is now responsive to Procardia XL. She is concerned that she has a headache which may be related to the underlying process versus medication. She will be admitted overnight for observation, pain control, frequent monitoring of blood pressures, medication as needed. Will re peat laboratory studies if warranted. All questions were answered. OB-HPI Labor/Delivery History of Present Illness Reason for Visit: Preeclampsia Chief Complaint: Other. ROSA ELENA Calculator Estimated Delivery Date Method WG Current Estimate 08/22/24 LMP (Certain) Other Estimates 08/19/24 Conception Infant Delivery Date-Baby A 08/22/24 40w 0d History of Present Expected Delivery Route/Plan Planned home with Adrienne Medina [facility] . ROSA ELENA 08/22/24 by LMP and known date of conception. Pt established care at 18w0d EGA. 10 visits. GBS neg. O+. cf DNA low risk for aneuploides and microdeletions. Neg STI. Last FHT 08/15/24 present at visit with practioner. Pt called provider Adrienne Medina and FHR check performed which showed no FHR. Pt evaluated on by Dr. Ray early this morning and IUFD in vtx presentation confirmed. Pt given options for care and was counseled to have IOL. She went home and presents for planned delivery of fetus. Specific Issues/Plan 1. AMA - Taking ASA. cfDNA low risk aneuploidy and microdeletions. - Recommended 39wk delivery - pt declined. 2. Migraines 3. Depression/anxiety - Sees therapist occasionally Narrative: Patient was seen in the office today for reevaluation. She had elevated blood pressures approximately 10 days post delivery. She received labetalol initially and transition to Procardia. Her blood pressures have improved, however she continues to have intermittent headaches which she attributes to her medication. In light of this, my recommendation is for further monitoring on the center. She will be admitted as a short stay observation. We will give her her antihypertensives and control her headache if it is present. Laboratory studies were done yesterday which are normal. Will repeat those if necessary. All of her questions were answered. PFSH All Active Problems (Updated 09/06/24 @ 18:57 by Mildred Rodriguez DO) Preeclampsia (Acute) hypertension (Acute) Anxiety (Chronic) Vaginal delivery (Acute) 08/22/2024. Term stillbirth. Labor induction demise, greater than 22 weeks, antepartum (Acute) Full-term demise Social History Smoking/Tobacco Use Status: Never Smoking risk assessment performed?: Yes Alcohol Intake: never Substance use type: does not use Household members: spouse, children and other Details: H - Mehdi, S - Joe Housing: house Number of Children: 1 Education Level: college Do you need help understanding health information?: Never current occupation: [employer]. Do you feel safe at home: Yes Do you feel safe in your relationship?: Yes History History 3 Para 1 Hx # Term Pregnancies 1 Multiple births Hx # Pregnancies Ectopic pregnancies AB induced 1 Hx Number of Living Children 1 AB spontaneous Past Pregnancies Del. Date GA/Weeks # Preg Succ Route Wgt Sex Labor Lgth Anesth esia Location Prov Complic 01/11/19 8 02/11/21 40 No Yes vaginal 7 lb 6 oz Male 20hrs 08/22/24 No No vaginal Female Mildred Medina son Delivery Date: 01/11/19 Last Updated by: Teresa Ray MD ETOP Delivery Date: 02/11/21 Last Updated by: Teresa Ray MD Home , pushed 1.5hrs Joe Delivery Date: 08/22/24 Last Updated by: Yareli Ahumada MD IUFD at 39w6d. ? cord accident. Placental path pending. No autopsy performed. Meds Allergies and Home Medications Allergies Allergy/AdvReac Type Severity Reaction Status Date / Time No Known Allergies Allergy Verified 09/06/24 14:57 Home Medications ?Medication ?Instructions ?Recorded ?Confirmed ?Type D3 Liquid 25 mcg PO DAILY 08/21/24 08/21/24 History Danilo Nataliya 550 mg PO DAILY 08/21/24 08/21/24 History pyridoxine (vitamin B6) 50 mg 50 mg PO DAILY 08/21/24 08/21/24 History tablet riboflavin (vitamin B2) 400 mg 400 mg PO DAILY 08/21/24 08/21/24 History tablet ibuprofen 800 mg tablet 800 mg PO Q8H PRN #45 tabs 08/23/24 Rx lorazepam 0.5 mg tablet (Ativan) 0.5 mg PO TID PRN #10 tabs 08/23/24 Rx labetalol 100 mg tablet 100 mg PO BID #30 tabs 09/03/24 Rx nifedipine 30 mg tablet,extended 30 mg PO DAILY #30 tabs 09/05/24 Rx release 24 hr Exam Physical Exam Vital signs: Temp Pulse Resp BP Pulse Ox 97.9 F 68 16 154/91 H 97 09/06/24 18:18 09/06/24 18:18 09/06/24 18:18 09/06/24 18:18 09/06/24 18:18 Detailed Labor and Delivery Exam Stovall Score: Cervical Points Exam 0 1 2 3 Dilation Closed 1-2cm 3-4 cm 5-6cm Effacement 0-30% 40-50% 60-70% 80% Consistency Firm Medium Soft Station -3 -2 -1,0 +1,+2 Position Posterior Mid Anterior Respiratory Exam Respiratory Exam: Normal Cardiovascular Exam Cardiovascular Exam: Normal Abdominal Exam Abdominal Exam: Normal Detailed Extremities Exam Extremities: Absent cyanosis, clubbing or edema Neurological Exam Neurological Exam: Normal Risk Assessment Risk for Shoulder Dystocia Delivery Plan @ 40 wks: aoc Risk for Post- Hemorrhage Counseled re: Active Management: No (Will address plan for active management when closer to delivery ) Risks Reviewed Risks Reviewed Upon Admission: Yes
[2024-09-06 20:05] VITALS: BP 149/96; PULSE 70; RESP 18; TEMP 36.9
[2024-09-06 22:00] VITALS: BP 147/95; PULSE 70; RESP 16; TEMP 36.7; O2SAT 99
[2024-09-06] MEDS: Zolpidem 5 MG TAB PO (22:07)
[2024-09-07 04:00] VITALS: BP 131/77; PULSE 72; RESP 18
[2024-09-07 08:30] VITALS: BP 136/89; PULSE 92; RESP 18; TEMP 36.9; O2SAT 97
[2024-09-07] MEDS: NIFEdipine-CR 30 MG TABCR PO (09:19)
--- NOTE | 2024-09-07 09:45 | W.PM.PROGNOT ---
Date of Service Date of service: 09/07/24 Time of Service: 09:45 Assessment and Plan Assessment and plan (1) Vaginal delivery: Status: Acute (2) Preeclampsia: Status: Acute Assessment and plan: The pressure is doing well this morning. Procardia XL 30 mg daily. Fioricet as needed for headache. Anticipate discharge home today. Subjective Subjective Interval history since last seen: Patient seen and examined. Doing well. Blood pressure is stable. No headache this morning. Repeat dose of Procardia today. She will have Procardia, XL 30 mg daily. She will monitor her blood pressure intermittently. She will be seen back in the office and short-term follow-up on Monday. Prescription for Fioricet was sent to the pharmacy. Exam Const General: cooperative, healthy appearing, comfortable and no acute distress HENMT Head: normal to inspection Eyes General: appearance normal, both eyes and all related structures Neck Neck: normal visual inspection Resp Effort & Inspection: normal respiratory effort Cardio Rate: regular rate Rhythm: regular rhythm Extrem General: normal to inspection and no clubbing, cyanosis or edema Psych Appearance: grossly normal Objective Last Vital Signs Temp 98.4 F 09/07/24 08:30 Pulse 92 H 09/07/24 08:30 Resp 18 09/07/24 08:30 BP 136/89 09/07/24 08:30 Pulse Ox 97 09/07/24 08:30 Time Spent with Patient Time Spent with Patient: 35-49 minutes Time was spent: preparing to see the patient(eg.review tests), obtaining and/or reviewing separately otained hiistory, ordering medications,tests, procedures, referring, communicating with other health respiratory care faculty, indepentently interpreting results, counseling the patient and care coordination
--- NOTE | 2024-09-07 09:47 | DSE_ITS ---
Date of service: 09/07/24 Time of Service: 09:47 DS: Diagnosis Discharge Diagnosis (1) Vaginal delivery: Status: Acute (2) Preeclampsia: Status: Acute Asessment and Plan: Blood pressures are stable today. Continue Procardia. Fioricet for headache. Follow-up in the office in 2 weeks. All questions answered Discharge Plan Disposition Patient Disposition: Home Condition: Good Discharge Details Reason For Visit: Preeclampsia Admit Date/Time: 09/06/24 15:48 Admit Provider: Mildred Rodriguez Attending Provider: Mildred Rodriguez Primary Care Provider: Unknown,Unknown Hospital Course Hospital Course: Patient was admitted for short stay observation over the night after being seen in the office with elevated blood pressure. She had had a significant headache the night prior. She received Procardia XL 30 mg with improvement in her blood pressure. She remained stable throughout the course of her stay. She had no resumption in her headache. She is discharged home with her prescriptions for her nifedipine, and a new prescription for Fioricet if she resumes having a headache. She will no longer use labetalol. She will be seen back in the office in short-term follow-up on Monday. Home Meds and New Rx's Prescriptions: New [id number] [Fioricet] 50-300-40 mg capsule 1 cap PO Q8H PRNQty: 20 0RF Discontinued labetalol 100 mg tablet 100 mg PO BID Qty: 30 1RF No Action nifedipine 30 mg tablet extended release 24hr 30 mg PO DAILY Qty: 30 0RF Danilo Nataliya 550 mg PO DAILY pyridoxine (vitamin B6) 50 mg tablet 50 mg PO DAILY D3 Liquid 25 mcg PO DAILY riboflavin (vitamin B2) 400 mg tablet 400 mg PO DAILY ibuprofen 800 mg tablet 800 mg PO Q8H PRNQty: 45 1RF lorazepam [Ativan] 0.5 mg tablet 0.5 mg PO TID PRNQty: 10 0RF Discharge Instructions Activity:: Activity as Tolerated Equipment/Supplies:: No Equipment Needed Diet:: As Tolerated Discharge Orders Discharge Orders: Discharge Order (Routine); Ordered 09/07/24 Ordered By: Mildred Rodriguez DS: Summary Time Spent with Patient providing and/or coordinating discharge services: Greater than 30 minutes Status at Discharge Functional status at discharge: independent ambulation Overall status at discharge: patient is progressing back to baseline Mental Status: mental status grossly normal Speech and Movement: speech and movement normal Mood: congruent mood Affect: normal affect Quality:SDOH Health Related Social Needs: No Data to Display Exam Narrative Exam Narrative: See physical exam from progress note dated 09/07/2024 Psych Mental Status: mental status grossly normal Speech and Movement: speech and movement normal Mood: congruent mood Affect: normal affect DS: Data Vitals/I&O Vitals and I&O: Vital Signs Temperature 98.4 F 09/07/24 08:30 Temperature Source Oral 09/07/24 08:30 Pulse 92 H 09/07/24 08:30 Pulse Rhythm Regular 09/07/24 08:30 Respiratory Rate 18 09/07/24 08:30 Blood Pressure 136/89 09/07/24 08:30 Blood Pressure Mean 104 09/07/24 08:30 Pulse Oximetry 97 09/07/24 08:30 Pain Level 1 09/06/24 17:19 Comment Patient requested to have ambien given and vital signs taken at this time so that she can attempt to sleep without interruption. 09/06/24 22:00 Intake & Output 09/06/24 09/06/24 09/07/24 11:59 23:59 11:59 Intake Total 550 / 550 Output Total 1000 / 1000 1900 / 1900 Balance -450 / -450 -1900 / -1900 Weight 169 lb Intake: Oral 550 / 550 Output: Urine 1000 / 1000 1900 / 1900 Other: Urine Color Light Callie Yellow PFSH All Active Problems (Updated 09/06/24 @ 18:57 by Mildred Rodriguez DO) Preeclampsia (Acute) hypertension (Acute) Anxiety (Chronic) Vaginal delivery (Acute) 08/22/2024. Term stillbirth. Labor induction demise, greater than 22 weeks, antepartum (Acute) Full-term demise Social History Smoking/Tobacco Use Status: Never Smoking risk assessment performed?: Yes Alcohol Intake: never Substance use type: does not use Household members: spouse, children and other Details: H - Mehdi, S - Joe Housing: house Number of Children: 1 Education Level: college Do you need help understanding health information?: Never current occupation: [employer]. Do you feel safe at home: Yes Do you feel safe in your relationship?: Yes History History 3 Para 1 Hx # Term Pregnancies 1 Multiple births Hx # Pregnancies Ectopic pregnancies AB induced 1 Hx Number of Living Children 1 AB spontaneous Past Pregnancies Del. Date GA/Weeks # Preg Succ Route Wgt Sex Labor Lgth Anesth esia Location Prov Complic 01/11/19 8 02/11/21 40 No Yes vaginal 7 lb 6 oz Male 20hrs 08/22/24 No No vaginal Female Mildred Medina son Delivery Date: 01/11/19 Last Updated by: Teresa Ray MD ETOP Delivery Date: 02/11/21 Last Updated by: Teresa Ray MD Home , pushed 1.5hrs Joe Delivery Date: 08/22/24 Last Updated by: Yareli Ahumada MD IUFD at 39w6d. ? cord accident. Placental path pending. No autopsy performed. Time Spent with Patient Time Spent with Patient: 45-69 minutes Time was spent: preparing to see the patient(eg.review tests), obtaining and/or reviewing separately otained hiistory, ordering medications,tests, procedures, referring, communicating with other health critical care registered nurse and counseling the patient
[2024-09-07] MEDS: Ibuprofen 600 MG TAB PO (12:10)
[2024-09-07 12:13] VITALS: BP 143/83; PULSE 79; RESP 18; TEMP 36.8; O2SAT 98
[2024-09-07 14:58] VITALS: BP 130/86; PULSE 77; RESP 20; TEMP 36.8; O2SAT 97
== END 2024-09-07 16:15 | disposition home or self-care (01) ==
PROVIDERS: Admitting Provider Obstetrics & Gynecology; Visit Provider Obstetrics & Gynecology
DX: O14.95 Unspecified pre-eclampsia, complicating the puerperium (principal); O90.89 Other complications of the puerperium, not elsewhere classified; R51.9 Headache, unspecified; O99.345 Other mental disorders complicating the puerperium; F41.8 Other specified anxiety disorders
CPT/HCPCS: G0378

== ENCOUNTER 2024-10-15 02:29 | Outpatient (CLI) | payer MEDICAID, SELFPAY ==
[2024-10-15 17:11] LABS: TSH (W/Ref FT4) 1.44 uIU/mL (0.36-3.74)
[2024-10-18 15:29] LABS: LA Cascade Summary (See Note)
[2024-10-18 19:13] LABS: Phospholipid Ab, IgG <9.4 GPL; Phospholipid Ab, IgM <9.4 MPL
[2024-10-21 11:29] LABS: Factor V Leiden(R506Q) Mut Negative (Negative)
== END 2024-10-15 02:30 | disposition home or self-care (01) ==
LOC: LBO 02:29
PROVIDERS: Visit Provider Obstetrics & Gynecology
DX: O80 Encounter for full-term uncomplicated delivery (principal); O16.5 Unspecified maternal hypertension, complicating the puerperium; Z87.59 Personal history of other complications of pregnancy, childbirth and the puerperium
CPT/HCPCS: 36415; 81241; 85613; 85732; 86147; 87116; 84443

== ENCOUNTER 2025-02-27 10:17 | Outpatient (CLI) | payer MEDICAID, SELFPAY ==
[2025-02-27 16:28] LABS: HCG Quant, Pregnancy 5748 mIU/mL (1-3)
== END 2025-02-27 10:18 | disposition home or self-care (01) ==
LOC: LBO 07-16 16:12
PROVIDERS: Visit Provider Obstetrics & Gynecology
DX: O03.9 Complete or unspecified spontaneous abortion without complication (principal)
CPT/HCPCS: 36415; 84702

== ENCOUNTER 2025-03-06 02:22 | Outpatient (CLI) | payer MEDICAID, SELFPAY ==
[2025-03-06 14:45] LABS: HCG Quant, Pregnancy 123 mIU/mL (1-3)
== END 2025-03-06 02:23 | disposition home or self-care (01) ==
PROVIDERS: Visit Provider Obstetrics & Gynecology
DX: O03.9 Complete or unspecified spontaneous abortion without complication (principal)
CPT/HCPCS: 36415; 84702

== ENCOUNTER 2025-07-22 11:36 | Outpatient (CLI) | payer MEDICAID, SELFPAY ==
--- NOTE | 2025-07-22 06:15 | DI.US_ITS ---
Exam(s) US PELVIS TRANSVAGINAL EXAM: US PELVIS TRANSVAGINAL CLINICAL HISTORY: Possible retained products of conception,DYSFUNCTIONAL UTERINE BLEEDING,N93 TECHNIQUE: Transabdominal and transvaginal imaging was performed using standard protocol. COMPARISON: US POCUS EXAM from 02/27/2025 FINDINGS: The bladder is unremarkable. UTERUS: Anteverted. 7.3 x 4.7 x 6 cm Endometrium: 10 mm Myometrium: Unremarkable. Cervix: Unremarkable. OVARIES: Right: Cyst or mass: None. Left: Cyst or mass: None. DOPPLER: Color: Symmetric and uniform flow to both ovaries. No hyperemia. CUL-DE-SAC: Free fluid: None. IMPRESSION: 1. Normal-appearing uterus with endometrial stripe within normal limits. 2. Unremarkable bilateral ovaries. DATA REPOSITORY:
== END 2025-07-22 11:56 ==
PROVIDERS: PCP Naturopath; Visit Provider Obstetrics & Gynecology
DX: N93.8 Other specified abnormal uterine and vaginal bleeding (principal)
CPT/HCPCS: 76830; 76856

== ENCOUNTER 2025-09-24 08:48 | Outpatient (CLI) | payer MEDICAID, SELFPAY ==
--- NOTE | 2025-09-24 08:45 | RT.EKG_ITS ---
APPROVED REPORT Exam: Resting ECG Reason for Exam: near syncope, RBBB Patient Location: O HR:81 bpm ECG Measurements Heart Rate 81 AXIS KS 152 P 23 QRSd 106 QRS 4 QT 374 T 45 QTc 434 Conclusion Sinus rhythm...normal P axis, V-rate 50- 99 Abnormal R-wave progression, early transition...QRS area>0 in V2
== END 2025-09-24 08:49 | disposition home or self-care (01) ==
LOC: DI.CARD 08:49
PROVIDERS: PCP Naturopath; Visit Provider Registered Nurse
DX: I45.10 Unspecified right bundle-branch block (principal); R55 Syncope and collapse
CPT/HCPCS: 93010

== ENCOUNTER → 2025-10-02 05:59 | Outpatient (CLI) | payer MEDICAID, SELFPAY ==
--- NOTE | 2025-10-02 07:15 | DI.US_ITS ---
APPROVED REPORT EXAM: Comprehensive 2D, Doppler, and color-flow Echocardiogram Patient Location: Out-Patient [employer] Machine Helper: Eugenie Murillo RDCS (AE) Indications: Palpitations, BBB new onset Other Information Study Quality: Good Conclusion Normal left ventricular wall thickness and chamber size. Ejection fraction is 60%. Wall motion is normal Normal right ventricular size and function Both atria are normal in size There is no structural or hemodynamically significant valvular disease Normal estimated right ventricular systolic pressure 21 mmHg Wall motion Left Ventricle The left ventricle is normal size. The left ventricular systolic function is normal. The left ventricular ejection fraction is within the normal range. There is normal left ventricular wall thickness. There is normal LV segmental wall motion. There is no ventricular septal defect visualized. LVEF is 60%. Right Ventricle The right ventricle is normal size. The right ventricular systolic function is normal. Atria The left atrium size is normal. The right atrium size is normal. The interatrial septum is intact with no evidence for an atrial septal defect. Aortic Valve The aortic valve is normal in structure. Aortic valve is trileaflet. There is no aortic valvular stenosis. No aortic regurgitation is present. Mitral Valve The mitral valve is normal in structure. No evidence of mitral valve stenosis. Trace mitral regurgitation. Tricuspid Valve The tricuspid valve is normal in structure. There is no tricuspid valve stenosis. Trace tricuspid regurgitation. The RVSP is 21.2 mmHg. Pulmonic Valve The pulmonary valve is normal in structure. There is no pulmonic valvular stenosis. There is no pulmonic valvular regurgitation. Great Vessels The aortic root is normal in size. The ascending aorta is normal in size. Aortic arch is normal in caliber. IVC is normal in size and collapses >50% with inspiration. Pericardium There is no pericardial effusion. 2D Dimensions IVSD d PLAX 0.83 cm F: 0.6-1.0 Ao Root d 2.26 cm F: 2.7 - 3.3 LVPW d PLAX 0.80 cm F: 0.6 - 1.0 Ao Asc Diam d 2.39 cm F: 2.3 - 3.1 LVID d PLAX 4.90 cm F: 3.8 - 5.2 LVDs 3.34 cm F: 2.2 - 3.5 LV EF Teichholz 59.6 % FS 31.72 % LV EDV (Teich) 112.3 mL LV ESV (Teich) 45.4 mL M-Mode TAPSE 2.06 cm (M/F) >1.7 Auto EF LV EDV A4C 107.9 mL LV EDV A2C 122.7 mL LV EDV BP 117.8 mL LV ESV A4C 43.9 mL LV ESV A2C 49.6 mL LV ESV BP 47.2 mL LVEF(%) A4C 59.3 % LVEF(%) A2C 59.6 % LVEF(%) BP 59.9 % LV SV A4C 64.0 ml LV SV A2C 73.1 ml LV SV BP 70.6 ml LV CO A4C 4.0 L/min LV CO A2C 4.4 L/min LV CO BP 4.2 L/min HR A4C 62.26 BPM HR A2C 60.51 BPM LV EDV Index (BP) LA Volume LA Length A4C 5.3 cm LA Length A2C 3.6 cm LA Area A4C s 16.13 cm2 LA Area A2C s 11.14 cm2 LA Vol A4C A-L 41.40 mL LA Vol A2C A-L 29.66 mL LA Vol Biplane A-L 43.0 mL LA Vol/BSA A4C A-L LA Vol/BSA A2C A-L LA Vol/BSA BP A-L 23.0 mL/m2 LA Vol A4C MOD 36.2 mL LA Vol A2C MOD 27.8 mL LA Vol BP MOD 38.7 mL RA Volume RA Area A4C 13.7 cm2 RA ESV A4C (A-L) 36.1mL RA Vol/BSA A4C A-L RA Length A4C 4.4 cm RA ESV A4C (MOD) 34.7mL LV Diastology MV E' medial 0.134 (>0.07 m/s) MV E Vmax 0.80 (0.4-1.3 m/s) MV E/E' MED 5.99 (<14) MV A Vmax 0.55 (0.4-1.3 m/s) E/A Ratio 1.5 Aortic Valve AoV Vmax 1.41 m/s LVOT Vmax 1.13 m/s AoV Peak Grad 7.9 mmHg LVOT Peak Grad 5.1 mmHg AoV Area (Vmax) 2.46 cm2 LVOT VTI 0.237 m AoV VTI 0.306 m LVOT Mean Grad 3.0 mmHg AoV Mean Brett. 0.99 m/s LVOT SV 72.35 mL AoV Mean Grad 4.5 mmHg LVOT Diam s 1.95 cm AoV Area (VTI) 2.37 cm2 AV Regurg Peak Gr. 7.91 mmHg Velocity Ratio 0.80 Mitral Valve MV DT 282 (160-240 msec) MV Vmax TIPS 0.83 m/s MV Mean Grad 1.0 (<2mmHg) MV VTI 0.252 m Pulmonary Valve PV Vmax 0.81 (0.5-1.5 m/s) RVOT Vmax 0.73 m/s PV Peak Grad 2.6 mmHg RVOT Peak Gr. 2.1 mmHg PV Mean Brett 0.63 m/s RVOT VTI 0.158 m PV Mean Grad 1.7 mmHg RVOT Mean Gr. 1.1 mmHg Tricuspid Valve RA Pressure 3.00 mmHg TR Vmax 2.14 m/s TV S' 0.13 m/s TR Peak Grad 18.2 mmHg RVSP (TR) 21.2 mmHg
== END ==
LOC: DI 05:59
PROVIDERS: PCP Naturopath; Visit Provider Registered Nurse
DX: I45.10 Unspecified right bundle-branch block (principal); R00.2 Palpitations
CPT/HCPCS: 93306

== ENCOUNTER 2025-10-02 10:55 | Outpatient (CLI) | payer MEDICAID, SELFPAY | END 2025-10-02 10:56 | disposition home or self-care (01) | LOC: CARDOPNVT 10:55 | PROVIDERS: PCP Naturopath; Visit Provider Registered Nurse | DX: R00.2 Palpitations (principal) | CPT/HCPCS: 93270 ==

== ENCOUNTER 2025-11-08 08:47 | Observation (INO) | payer MEDICAID, SELFPAY ==
[2025-11-08] VITALS (23 sets, daily range): BP systolic 103–130; BP diastolic 43–74; PULSE 65–88; RESP 12–20; TEMP 36.1–37.7; O2SAT 98–100; BMI 24.2
[2025-11-08 09:00] LABS: BE (Venous) -1 mmol/L (-2-3); HCO3 (Venous) 23 mmol/L (23-28); O2 Sat (Venous) 35 %; TCO2 (Venous) 22 mmol/L (24-29); pCO2 (Venous) 37 mmHg (41-51); pO2 (Venous) 22 mmHg
[2025-11-08 09:03] LABS: Abs Immature Grans 0.04 10^3/uL (0.0-0.06); HCT 32.8 % (36.0-46.0); HGB 11.4 g/dL (11.2-15.7); Immature Grans % 0.6 %; MCH 31.4 pg (27.0-33.0); MCHC 34.8 % (32.0-36.0); MCV 90 fL (80-95); MPV 10.0 fL (8.0-11.0); Platelet Count 216 10^3/uL (130-400); RBC 3.63 10^6/uL (3.93-5.22); RDW 11.9 % (11.7-14.6); RDW-SD 39.4 fL; WBC 6.77 10^3/uL (4.4-10.8)
[2025-11-08] MEDS: TRANEXAMIC ACID/SOD. CHL. 1,000 MG/100 ML BAG 600 MG IVPB (09:04)
--- NOTE | 2025-11-08 09:05 | ED.GENADUL_ITS ---
Discharge Plan Disposition Patient Disposition: Admit to [facility] Discharge Details Clinical Impression: Incomplete Attending Provider: Luci Miles Primary Care Provider: Mauricio Solomon ED Provider: Freddy Daíz Discharge Data Discharge Date/Time-TO BE ENTERED AT DEPARTURE: 11/08/25 09:42 HPI General Date/Time Provider Initiated Documentation: 11/08/25 08:57 . HPI Narrative: MDM/Narrative: 40-year-old female with a recent incomplete , presents for vaginal bleeding. Vital signs notable for mild tachycardia and hypotension. Primary exam is intact, secondary is notable for slight bleeding from the vaginal canal, otherwise unremarkable. Bedside FAST exam shows no free fluid, no pericardial effusion. Bilateral IV line access was obtained, Dr. Stephenson of [facility] was called bedside given the patient's prehospital vitals and concern for ongoing hemorrhage. Following initial assessment, patient's pulse is now 74 but blood pressure 103/68 at this time was decided to hold blood products, however will administer TXA 1 g, obtain screening labs, Dr. Watts will perform pelvic exam to determine if patient would require D&C at this time. ED course: [address] Stephenson recommends patient to go to the OR for emergent D&C. Patient will be admitted to [facility] and was transferred to the OR without further issue. Disposition: Admit to [facility] HPI: 40-year-old female with a past med history of anxiety, , it was diagnosed with a missed on October 15, 2025, presents for evaluation for vaginal bleeding and pelvic cramping which began this morning. Patient notes she was unable to follow-up with her outpatient visit with obstetrics for to ensure passage of the . She arrives via EMS, and notes that she was both hypotensive and tachycardic in the field. History of present illness is limited due to patient condition. ROS: Negative besides as mentioned above Exam: Gen: A&O, moaning HEENT: NCAT, EOMI, not icteric. External ears normal. No rhinorrhea. Moist mucous membranes. Neck: Supple, full range of motion, no observable masses, No meningeal sign. Lungs: No Respiratory distress. CV: RRR, no edema. Abdomen: Soft, nondistended, No rebound tenderness. MSK: No joint swelling, no redness. Skin: No rashes, petechiae, lesions. Normal color per patient. Neuro: Normal Gait, Grossly intact. Psych: Appropriate for situation. Labs: Laboratory Tests Range/Units 11/08/25 11/08/25 11/08/25 08:42 08:54 08:59 WBC (4.4-10.8) 10^3/uL 6.77 RBC (3.93-5.22) 10^6/uL 3.63 L Hgb (11.2-15.7) g/dL 11.4 Hct (36.0-46.0) % 32.8 L MCV (80-95) fL 90 MCH (27.0-33.0) pg 31.4 MCHC (32.0-36.0) % 34.8 RDW (11.7-14.6) % 11.9 Plt Count (130-400) 10^3/uL 216 MPV (8.0-11.0) fL 10.0 Immature Gran % % 0.6 Neutrophils % % 76.3 Lymphocytes % % 16.5 Monocytes % % 5.9 Eosinophils % % 0.6 Basophils % % 0.1 Nucleated RBC % (0.0-0.3) % 0.0 Absolute Neutrophils (1.2-6.7) 10^3/uL 5.16 Absolute Lymphocytes (1.2-3.4) 10^3/uL 1.12 L Absolute Monocytes (0.1-0.8) 10^3/uL 0.40 Absolute Eosinophils (0.0-0.7) 10^3/uL 0.04 Absolute Basophils (0.0-0.2) 10^3/uL 0.01 PT (9.1-11.1) sec 10.1 INR (0.9-1.1) 1.0 APTT (20.6-30.2) sec 22.7 VBG pH (7.31-7.41) 7.41 VBG pCO2 (41-51) mmHg 37 L VBG pO2 mmHg 22 VBG HCO3 (23-28) mmol/L 23 VBG Total CO2 (24-29) mmol/L 22 L VBG O2 Saturation % 35 VBG Base Excess (-2-3) mmol/L -1 VBG Lactate (<or=2.0) mmol/L 1.9 Sodium (136-145) mmol/L 135 L Potassium (3.5-5.1) mmol/L 3.5 Chloride (98-107) mmol/L 102 Carbon Dioxide (20.0-31.0) mmol/L 23.3 Anion Gap (3-11) mmol/L 9.7 BUN (9-23) mg/dL 9 Creatinine (0.55-1.02) mg/dL 0.69 Est GFR (CKD-EPI 2020) (mL/min/1.73m2) 93.07 Glucose (74-106) mg/dL 152 H Calcium (8.3-10.6) mg/dL 8.6 Total Bilirubin (0.2-1.2) mg/dL 0.6 AST (<34) U/L 24 ALT (10-49) U/L 24 Alkaline Phosphatase (46-116) U/L 62 Total Protein (5.7-8.2) g/dL 6.7 Albumin (3.2-5.0) g/dL 4.2 HCG, Quant (1.5-4.2) mIU/mL 1901 H ABO/Rh O Positive Antibody Screen NEGATIVE Crossmatch See Detail Related Data Home Medications ?Medication ?Instructions ?Recorded ?Confirmed magnesium 200 mg tablet 400 mg PO DAILY 09/18/24 dwerlayehg-onqmzgeprmcdh-mwbljetv 1 cap PO Q8H PRN qian n #20 caps 02/13/25 11/08/25 50 mg-300 mg-40 mg capsule (Fioricet) citalopram 10 mg tablet (Celexa) 10 mg PO DAILY 11/08/25 Previous Rx's ?Medication ?Instructions ?Recorded [id number]-avbrjvlxmglbw-euzuvewr 1 cap PO Q8H PRN qian n #20 caps 02/13/25 50 mg-300 mg-40 mg capsule (Fioricet) Allergies Allergy/AdvReac Type Severity Reaction Status Date / Time No Known Allergies Allergy Verified 10/15/25 11:32 General Stated Complaint: [facility] JP: 2 Course Vital Signs Vital signs: Vital Signs Temperature 36.1 C L 11/08/25 08:47 Pulse 74 11/08/25 08:47 Respiratory Rate 13 11/08/25 08:47 Blood Pressure 103/68 11/08/25 08:47 Pulse Oximetry 100 11/08/25 08:47 Temperature 36.1 C L 11/08/25 08:47 Pulse 74 11/08/25 08:51 Pulse 81 11/08/25 08:51 Respiratory Rate 14 11/08/25 08:51 Blood Pressure 103/68 11/08/25 08:50 Blood Pressure Mean 77 11/08/25 08:50 Pulse Oximetry 100 11/08/25 08:51 Oxygen Delivery Method Room Air 11/08/25 08:47 Oxygen Flow Rate 0 11/08/25 08:47 Lab/Test Results Lab/Test Results: Laboratory Tests Range/Units 11/08/25 11/08/25 08:54 08:59 WBC (4.4-10.8) 10^3/uL 6.77 RBC (3.93-5.22) 10^6/uL 3.63 L Hgb (11.2-15.7) g/dL 11.4 Hct (36.0-46.0) % 32.8 L MCV (80-95) fL 90 MCH (27.0-33.0) pg 31.4 MCHC (32.0-36.0) % 34.8 RDW (11.7-14.6) % 11.9 Plt Count (130-400) 10^3/uL 216 MPV (8.0-11.0) fL 10.0 Immature Gran % % 0.6 Neutrophils % % 76.3 Lymphocytes % % 16.5 Monocytes % % 5.9 Eosinophils % % 0.6 Basophils % % 0.1 Nucleated RBC % (0.0-0.3) % 0.0 Absolute Neutrophils (1.2-6.7) 10^3/uL 5.16 Absolute Lymphocytes (1.2-3.4) 10^3/uL 1.12 L Absolute Monocytes (0.1-0.8) 10^3/uL 0.40 Absolute Eosinophils (0.0-0.7) 10^3/uL 0.04 Absolute Basophils (0.0-0.2) 10^3/uL 0.01 VBG pH (7.31-7.41) 7.41 VBG pCO2 (41-51) mmHg 37 L VBG pO2 mmHg 22 VBG HCO3 (23-28) mmol/L 23 VBG Total CO2 (24-29) mmol/L 22 L VBG O2 Saturation % 35 VBG Base Excess (-2-3) mmol/L -1 VBG Lactate (<or=2.0) mmol/L 1.9 Crossmatch See Detail PFSH All Active Problems (Updated 11/08/25 @ 09:36 by Luci Miles DO) Incomplete miscarriage (Acute) Incomplete (Acute) (Acute) Bundle branch block, right (Acute) Abnormal bowel movement (Acute) Flushing (Acute) Hypertension (Chronic) History of stillbirth (Acute) Anxiety (Chronic) Medical History hypertension Preeclampsia demise, greater than 22 weeks, antepartum Full-term demise Vaginal delivery 08/22/2024. Term stillbirth. Labor induction Social History Smoking/Tobacco Use Status: Never Smoking risk assessment performed?: Yes Alcohol Intake: never Substance use type: does not use Household members: spouse, children and other Details: H - Mehdi, S - Joe Housing: house Number of Children: 1 Education Level: college Do you need help understanding health information?: Never current occupation: [employer]. Do you feel safe at home: Yes Do you feel safe in your relationship?: Yes History History 4 Para 1 Hx # Term Pregnancies 2 Multiple births Hx # Pregnancies Ectopic pregnancies AB induced 1 Hx Number of Living Children 1 AB spontaneous 1 Past Pregnancies Del. Date GA/Weeks # Preg Succ Route Wgt Sex Labor Lgth Anesth esia Location Prov Complic 01/11/19 8 02/11/21 40 No Yes vaginal 3345.244 g Male 20hrs 08/22/24 No No vaginal Female Mildred Medina son 02/28/25 6 No No Delivery Date: 01/11/19 Last Updated by: Teresa Ray MD ETOP Delivery Date: 02/11/21 Last Updated by: Teresa Ray MD Home , pushed 1.5hrs Joe Delivery Date: 08/22/24 Last Updated by: Yareli Ahumada MD IUFD at 39w6d. ? cord accident. Placental path pending. No autopsy performed. Delivery Date: 02/28/25 Last Updated by: Mildred Ramirez LPN miscarriage
[2025-11-08 09:20] LABS: INR 1.0 (0.9-1.1); PTT Activated 22.7 sec (20.6-30.2); Prothrombin Time 10.1 sec (9.1-11.1)
[2025-11-08 09:24] LABS: ALT 24 U/L (10-49); AST 24 U/L (<34); Albumin 4.2 g/dL (3.2-5.0); Alkaline Phosphatase 62 U/L (46-116); Anion Gap 9.7 mmol/L (3-11); BUN 9 mg/dL (9-23); Bilirubin, Total 0.6 mg/dL (0.2-1.2); CO2 23.3 mmol/L (20.0-31.0); Calcium 8.6 mg/dL (8.3-10.6); Chloride 102 mmol/L (98-107); Glucose 152 mg/dL (74-106); Potassium 3.5 mmol/L (3.5-5.1); Sodium 135 mmol/L (136-145); Total Protein 6.7 g/dL (5.7-8.2)
--- NOTE | 2025-11-08 09:28 | W.PM.HP.N ---
Date of service: 11/08/25 Time of Service: 09:28 Assessment and Plan Assessment and plan (1) Incomplete miscarriage: Status: Acute Assessment and plan: 40-year-old G [id number] ( x 2) currently 11 weeks gestation by first day last menstrual period; diagnosed with incomplete miscarriage at 7 weeks and lost to follow-up in the office. Patient appears to be undergoing miscarriage at this time. However, given the persistent nature of her bleeding and to the extent of her bleeding, we discussed the utility of performing a suction dilation and curettage to evacuate any remaining contents of the uterus. We discussed alexandra risks of the procedure include, but are not limited to, bleeding, infection, damage to surrounding tissues, most notably in this case we are concerned about the potential for uterine perforation where instruments go through the back of the uterus and could involve surrounding structures. If this were to happen it could necessitate more invasive procedures and/or prolonged monitoring. We also discussed that there was associated with anesthesia as well as unforeseen complications. We discussed that there is a potential need for blood transfusion. We discussed that blood transfusions are considered tissue transfusions we watch for tissue reactions. There is also a remote but possible risk for the transmission of blood-borne pathogen such as HIV or hepatitis. All questions were answered to the patient satisfaction and she was consented for a suction dilation and curettage. History of Present Illness Narrative: 40-year-old (h/o x 2) presents at 11 weeks gestation based on first day last menstrual period for heavy bleeding that started yesterday. Patient appears to have been seen in our office on 10/15/2025 where she had an ultrasound that identified a 7-week fetus without cardiac activity. Patient was informed that this was likely a missed ; note suggest patient declined intervention and follow-up, and she preferred expectant management. She was not seen back in the office. Patient states that she began bleeding yesterday afternoon. She reports intermittent episodes of notably heavy bleeding that felt like, gushes. She reports having gone through the largest pads about every 20 to 30 minutes at various intervals between yesterday and this morning. She called an ambulance this morning surrounding continued heavy bleeding, and while en route to the hospital, induction brazer reported blood pressures in the 80s over 40s and notable tachycardia. Oh I am happy to come talk with her I have to I have this other bleeding yeah Review of Systems Narrative: point review of systems negative except for those mentioned in the HPI below PFSH All Active Problems (Updated 11/08/25 @ 09:36 by Luci Miles DO) Incomplete miscarriage (Acute) Incomplete (Acute) (Acute) Bundle branch block, right (Acute) Abnormal bowel movement (Acute) Flushing (Acute) Hypertension (Chronic) History of stillbirth (Acute) Anxiety (Chronic) Medical History hypertension Preeclampsia demise, greater than 22 weeks, antepartum Full-term demise Vaginal delivery 08/22/2024. Term stillbirth. Labor induction Social History Smoking/Tobacco Use Status: Never Smoking risk assessment performed?: Yes Alcohol Intake: never Substance use type: does not use Household members: spouse, children and other Details: H - Mehdi, S - Joe Housing: house Number of Children: 1 Education Level: college Do you need help understanding health information?: Never current occupation: [employer]. Do you feel safe at home: Yes Do you feel safe in your relationship?: Yes History History 4 Para 1 Hx # Term Pregnancies 2 Multiple births Hx # Pregnancies Ectopic pregnancies AB induced 1 Hx Number of Living Children 1 AB spontaneous 1 Past Pregnancies Del. Date GA/Weeks # Preg Succ Route Wgt Sex Labor Lgth Anesthesia Location Prov [facility] 01/11/19 8 02/11/21 40 No Yes vaginal 7 lb 6 oz Male 20hrs 08/22/24 No No vaginal Female Mildred Rodriguez 02/28/25 6 No No Delivery Date: 01/11/19 Last Updated by: Teresa Ray MD ETOP Delivery Date: 02/11/21 Last Updated by: Teresa Ray MD Home , pushed 1.5hrs Joe Delivery Date: 08/22/24 Last Updated by: Yareli Ahumada MD IUFD at 39w6d. ? cord accident. Placental path pending. No autopsy performed. Delivery Date: 02/28/25 Last Updated by: Mildred Ramirez LPN miscarriage Meds Allergies and Home Medications Allergies Allergy/AdvReac Type Severity Reaction Status Date / Time No Known Allergies Allergy Verified 10/15/25 11:32 Home Medications ?Medication ?Instructions ?Recorded ?Confirmed ?Type magnesium 200 mg tablet 400 mg PO DAILY 09/18/24 11/08/25 History yhpllcqyze-vuzgsqmbtceax-buzuqcol 1 cap PO Q8H PRN pain #20 caps 02/13/25 11/08/25 Rx 50 mg-300 mg-40 mg capsule (Fioricet) citalopram 10 mg tablet (Celexa) 10 mg PO DAILY 08/14/25 11/08/25 History Exam Narrative Exam Narrative: General: Well-nourished female, fatigued but responsive. Pale skin tone. Pulmonary: No evidence of respiratory distress Abdomen: Soft nondistended nontender Extremities: No swelling Psych: Cooperative, responsive : Bimanual exam appreciates a close cervix and notable uterine fullness; retroverted uterus? Clots expelled from vagina Results Imaging Additional studies: Bedside ultrasound performed by ED provider incidentally noted patient to have suspicious irregularities within the endometrial canal Labs 11/08/25 08:54 11/08/25 08:54 Labs: Laboratory Results - last 24 hr 11/08/25 11/08/25 08:54 08:59 WBC 6.77 RBC 3.63 L Hgb 11.4 Hct 32.8 L MCV 90 MCH 31.4 MCHC 34.8 RDW 11.9 Plt Count 216 MPV 10.0 Immature Gran % 0.6 Neutrophils % 76.3 Lymphocytes % 16.5 Monocytes % 5.9 Eosinophils % 0.6 Basophils % 0.1 Nucleated RBC % 0.0 Absolute Neutrophils 5.16 Absolute Lymphocytes 1.12 L Absolute Monocytes 0.40 Absolute Eosinophils 0.04 Absolute Basophils 0.01 PT 10.1 INR 1.0 APTT 22.7 VBG pH 7.41 VBG pCO2 37 L VBG pO2 22 VBG HCO3 23 VBG Total CO2 22 L VBG O2 Saturation 35 VBG Base Excess -1 VBG Lactate 1.9 Sodium 135 L Potassium 3.5 Chloride 102 Carbon Dioxide 23.3 Anion Gap 9.7 BUN 9 Creatinine 0.69 Est GFR (CKD-EPI 2020) 93.07 Glucose 152 H Calcium 8.6 Total Bilirubin 0.6 AST 24 ALT 24 Alkaline Phosphatase 62 Total Protein 6.7 Albumin 4.2 Crossmatch See Detail Last Vital Signs Temp 97 F L 11/08/25 08:47 Pulse 71 11/08/25 09:14 Resp 14 11/08/25 09:14 BP 105/73 11/08/25 09:14 Pulse Ox 100 11/08/25 09:14 VTE Prohylaxis Risk Level: Moderate/High Risk Contraindications: Active bleed/high bleed risk Prophylaxis: Mechanical and Patient ambulatory Time Spent Time spent with Patient: 40-54 minutes Time was spent: preparing to see the patient(eg.review tests), obtaining and/or reviewing separately otained hiistory, ordering medications,tests, procedures, referring, communicating with other health regular senior care provider, indepentently interpreting results, counseling the patient and care coordination
[2025-11-08] MEDS: Lactated Ringers 1,000 ML 125 ML IV (09:40)
[2025-11-08 09:41] LABS: HCG Quant, Pregnancy 1901 mIU/mL (1.5-4.2)
--- NOTE | 2025-11-08 09:53 | ANES.PREOP_ITS ---
General Info Date of Service Date Performed: 11/08/25 Height: 5 ft 9 in Weight: 74.4 kg Body Mass Index (BMI): 24.2 Surgical Procedure: Operation Date: 11/08/25 09:30 Proposed Procedure Side Surgeon p Dilation & Curettage Luci Miles DO Actual Procedure Side Surgeon p Dilation & Curettage Not Applicable Luci Miles DO Pre-Op Diagnosis Post-Op Diagnosis Incomplete miscarriage Incomplete miscarriage Meds Allergies and Home Medications Allergies Allergy/AdvReac Type Severity Reaction Status Date / Time No Known Allergies Allergy Verified 10/15/25 11:32 Home Medication ?Medication ?Instructions ?Recorded magnesium 200 mg tablet 400 mg PO DAILY 09/18/24 zxuafvwmnj-xwrxfqczichmh-pflmogem 1 cap PO Q8H PRN qian n #20 caps 02/13/25 50 mg-300 mg-40 mg capsule (Fioricet) citalopram 10 mg tablet (Celexa) 10 mg PO DAILY Current Visit Medications: Current Medications Generic Name Dose Route Start Last Admin Trade Name Satishq PRN Reason Stop Dose Admin Tranexamic Acid/Sodium Chloride 1,000 mg in 100 mls @ 600 mls/hr 11/08/25 08:45 11/08/25 09:04 IVPB 600 mls/hr PREOP MOI Administration Doxycycline Hyclate 100 mg/ 100 mls @ 100 mls/hr 11/08/25 09:23 Sodium Chloride IVPB 11/08/25 10:22 NOW ONE Ringer's Solution 1,000 mls @ 125 mls/hr 11/08/25 09:30 11/08/25 09:40 IV 125 mls/hr INFUSION MOI Administration Povidone Iodine 0 ml 11/08/25 10:00 Povidone-Iodine Soln. 118 Ml Btl TP DIRECTED MOI PFSH Active Problems Active Problems: Problem Status Onset Code Incomplete miscarriage Acute O03.4 Incomplete Acute O03.4 Acute Z34.90 Bundle branch block, right Acute I45.10 Abnormal bowel movement Acute R19.8 Flushing Acute R23.2 Hypertension Chronic I10 History of stillbirth Acute Z87.59 Anxiety Chronic F41.9 Medical History Medical History hypertension Preeclampsia demise, greater than 22 weeks, antepartum Full-term demise Vaginal delivery 08/22/2024. Term stillbirth. Labor induction Tobacco Smoking/Tobacco Use Status: Never Alcohol Alcohol Intake: never Substance Use Substance use type: does not use Prental History History 2 4 Para 1 Hx # Term Pregnancies 2 Multiple births Hx # Pregnancies Ectopic pregnancies AB induced 1 Hx Number of Living Children 1 AB spontaneous 1 Past Pregnancies Del. Date GA/Weeks # Preg Succ Route Wgt Sex Labor Lgth Anesth esia Location Prov Complic 01/11/19 8 02/11/21 40 No Yes vaginal 3345.244 g Male 20hrs 08/22/24 No No vaginal Female Mildred Medina son 02/28/25 6 No No Delivery Date: 01/11/19 Last Updated by: Teresa Ray MD ETOP Delivery Date: 02/11/21 Last Updated by: Teresa Ray MD Home , pushed 1.5hrs Joe Delivery Date: 08/22/24 Last Updated by: Yareli Ahumada MD IUFD at 39w6d. ? cord accident. Placental path pending. No autopsy performed. Delivery Date: 02/28/25 Last Updated by: Mildred Ramirez LPN miscarriage Vital Signs and Lab Results Vital Signs Most Recent Vital Signs in EMR: Most Recent Vital Signs Temp Pulse Resp BP Pulse Ox 36.1 C L 75 15 114/63 100 11/08/25 08:47 11/08/25 09:17 11/08/25 09:17 11/08/25 09:17 11/08/25 09:17 Lab Results 11/08/25 08:54 11/08/25 08:54 Blood Type / Crossmatch: 2 Antibody Screen NEGATIVE Today Crossmatch See Detail Today Complete Blood Count: 2 WBC, (4.4-10.8) 6.77 10^3/uL Today, 08:54 RBC, (3.93-5.22) 3.63 10^6/uL L Today, 08:54 Hgb, (11.2-15.7) 11.4 g/dL Today, 08:54 Hct, (36.0-46.0) 32.8 % L Today, 08:54 Plt Count, (130-400) 216 10^3/uL Today, 08:54 VBG Lactate, (<or=2.0) 1.9 mmol/L Today, 08:54 Complete Metabolic Panel: 2 Sodium, (136-145) 135 mmol/L L Today, 08:54 Potassium, (3.5-5.1) 3.5 mmol/L Today, 08:54 Chloride, (98-107) 102 mmol/L Today, 08:54 Carbon Dioxide, (20.0-31.0) 23.3 mmol/L Today, 08:54 BUN, (9-23) 9 mg/dL Today, 08:54 Creatinine, (0.55-1.02) 0.69 mg/dL Today, 08:54 Est GFR (CKD-EPI 2020), (mL/min/1.73m2) 93.07 Today, 08:54 Calcium, (8.3-10.6) 8.6 mg/dL Today, 08:54 Albumin, (3.2-5.0) 4.2 g/dL Today, 08:54 Glucose, (74-106) 152 mg/dL H Today, 08:54 Liver Function Panel: 2 ALT, (10-49) 24 U/L Today, 08:54 AST, (<34) 24 U/L Today, 08:54 Coagulation Panel: 2 INR, (0.9-1.1) 1.0 Today, 08:54 PT, (9.1-11.1) 10.1 sec Today, 08:54 APTT, (20.6-30.2) 22.7 sec Today, 08:54 Venous Blood Gas: 2 VBG pH, (7.31-7.41) 7.41 Today, 08:54 VBG pO2 22 mmHg Today, 08:54 VBG pCO2, (41-51) 37 mmHg L Today, 08:54 VBG O2 Saturation 35 % Today, 08:54 VBG HCO3, (23-28) 23 mmol/L Today, 08:54 VBG Base Excess, (-2-3) -1 mmol/L Today, 08:54 VBG Total CO2, (24-29) 22 mmol/L L Today, 08:54 Anesthesia Assessment and Plan Anesthesia History Personal History: No History of General Anesthesia Family History: No Family History of Anesthesia Complications Exercise Tolerance Exercise Tolerance: Metabolic Equivalents>4 Pertinent Negatives Pertinent Negatives: No Symptoms of GERD Cardiac & Pulmonary Exam Cardiac Exam: Normal S1/S2 Heart Sounds Pulmonary Exam: Clear Bilateral Breath Sounds Implantable Cardiac Device Does patient have a Pacemaker or an ICD?: No Airway Exam Known Difficult Airway: No Mallampati Class: 2 Mouth Opening: Normal (> 3cm) Thyromental Distance: Greater than 3 cm Neck Range of Motion: Full ROM Neck Circumference: Normal Teeth Condition: Normal Dentition ASA Classification ASA Score: ASA 2 Emergency Case?: Yes NPO Status NPO Status: NPO Clears >2 hours, Solids >8 hours Status Status: Confirmed Anesthesia Plan Resuscitation Status: Full Code Anesthesia Technique: General Anesthesia Airway Planned: Endotracheal Tube Monitors Used: Standard Monitors and SedLine
[2025-11-08] MEDS: DOXYCYCLINE 100 MG in Normal Saline 100 ML IVPB (10:10)
[2025-11-08] MEDS: Silver Nitrate Stick 1 EACH (10:59)
--- NOTE | 2025-11-08 11:12 | W.PM.OP ---
Operative Note Operative Note PRE-OP DIAGNOSIS: Retained products of conception POST-OP DIAGNOSIS: same PROCEDURE: Suction dilation and curettage SURGEON: Luci Miles ANESTHESIA TYPE: MAC Refer to Anesthesia Record ESTIMATED BLOOD LOSS: 100 PATHOLOGY: other (Products of conception) COMPLICATIONS: None Patient was transported to: observation Patient's condition: stable Implants: None Indications: 40-year-old G5 now P2032 ( x 2) presented to the emergency department at 11 weeks of gestation with concerning vaginal bleeding. She had been diagnosed with an incomplete miscarriage at 7 weeks gestation, and had been managing her miscarriage expectantly at home. Upon presentation, she was noted to have concerns for retained products of conception and was ultimately consented for a suction dilation and curettage. Findings: Modest evidence of apical pelvic organ prolapse (stage I). Dilated cervix (approximately 1 to 2 cm). Bimanual exam appreciated uterine fullness and bogginess; anteverted. Endometrial canal sounding to 11 cm. Copious retained products removed from endometrial canal via procedure. Procedure Description: Patient was taken to the OR with IV fluids running. She received 100 mg of doxycycline IV as well as transexamic acid prior to the procedure. General anesthesia was established and found to be adequate. Patient was positioned into a modified dorsolithotomy position with her legs up in yellowfin stirrups. Her pelvis was prepped with a Betadine solution. She was draped in sterile dressings. She voided immediately prior to entering the OR. A timeout was performed, and the patient and the procedure were verified. Bimanual exam appreciated all bulky, enlarged uterus with a dilated cervix. Products could be palpated within the endometrial canal but not evacuated manually. A single tooth tenaculum was used to stabilize the anterior lip of the cervix. I attempted to evacuate the products carefully first with a curette; however, I was unsuccessful in obtaining adequate resolution of the products. The endometrial canal was then sounded to 11 cm and appreciated to be anteverted and what was previously thought to be a retroverted uterus, was noted to be fullness from retained products. A 10 mm curved suction curette was marked at the 11 cm jose alberto and used to carefully and methodically evacuate products. Once I was only getting scant return, I switched to gentle curetting, and largely appreciated good cry along all figueroa except the right uterine fundus. I then switched to an 8 mm curved suction curette, and then carefully used it to evacuate additional products from the cavity. Once collection was again scant, the endometrial canal was interrogated one more time with gentle curetting, and good cry was appreciated along all uterine figueroa. A final evaluation of the endometrial canal was performed using a transabdominal ultrasound, and a reassuringly thin endometrial stripe was appreciated. Her bleeding was resolved. The single-toothed tenaculum was removed without issue, and bleeding at the right tenaculum site was resolved with silver nitrate. The patient tolerated the procedure well. Counts were correct x2. Patient was taken to recovery without issue. Date of Procedure: 11/08/25
--- NOTE | 2025-11-08 12:22 | NUR.NOTE ---
Nursing Note: At 11:30 am pt received from [facility] via stretcher Report received from Kaelyn [place] pt assisted to the bed VSS pt alert and oriented x 4 pt has slight cramping BS present lungs clear insentive at bedside pt tolerating clears tolerating regular diet no n/v pt voided 500cc of pink tinged urine clifton pad changed for a small amt of dark blood no clots family at bedside call lew at side safety maintained VSS
--- NOTE | 2025-11-08 12:34 | W.ANESPOSTOP ---
Postoperative Evaluation Date, Time and Location Date Performed: 11/08/25 Time Performed: 11:30 Patient Location: PACU Vital Signs Most Recent Imported Vital Signs: Most Recent Vital Signs Temp Pulse Resp BP Pulse Ox 36.6 C 88 16 120/68 100 11/08/25 12:31 11/08/25 12:31 11/08/25 12:31 11/08/25 12:31 11/08/25 12:31 Pain Score Most Recent Pain Score: Most Recent Pain Score Pain Level 2 11/08/25 11:52 Assessment Mental Status: Awake (Alert & Oriented to Patient Baseline) Airway and Respiratory Function: Patent airway with normal (patient baseline) respiratory exam Cardiovascular Function: Hemodynamically Stable Hydration Status: Adequately Hydrated Nausea & Vomiting: No Nausea or Vomiting Pain: Pt. Denies Any Pain Peripheral Nerve Block: Patient did not receive a nerve block
[2025-11-08] MEDS: Acetaminophen 500 MG TAB PO (15:20)
[2025-11-08] MEDS: Citalopram 20 MG TAB 10 MG PO (15:51)
--- NOTE | 2025-11-08 16:04 | W.PC.ACHO ---
Registration Status: ADM BRYAN Primary Language: Preferred Language: ED Information & Data Chief Complaint TIP STITCHER 11/08/25 09:13 Chief Complaint TIP STITCHER 11/08/25 09:07 Triage Note Incomplete miscarriage 10/1511/08/25 08:47 ~7 weeks. Bleeding yesterday and did not follow up with the clinic. C/o cramping and clots. Hypotensive per EMS. Medical / Surgical History (Last Reviewed 11/08/25 @ 09:33 by Luci Miles, ) hypertension Preeclampsia demise, greater than 22 weeks, antepartum Vaginal delivery Most Recent Vital Signs Temperature 37.5 C 11/08/25 15:05 Temperature Source Temporal Artery Scan 11/08/25 15:05 Pulse 78 11/08/25 15:05 Pulse Rhythm Regular 11/08/25 11:52 Pulse 81 11/08/25 11:15 Respiratory Rate 16 11/08/25 15:05 Respiratory Effort Normal 11/08/25 11:52 Respiratory Depth Normal 11/08/25 11:52 Respiratory Pattern Normal 11/08/25 11:52 Blood Pressure 108/65 11/08/25 15:05 Blood Pressure Mean 79 11/08/25 15:05 Pulse Oximetry 99 11/08/25 15:05 Oxygen Delivery Method Room Air 11/08/25 15:05 Oxygen Flow Rate 0 11/08/25 15:05 Pain Level 2 11/08/25 11:52 Allergies No Known Allergies Allergy (Verified 10/15/25 11:32) Active Medications Generic Name Dose Route Start Last Admin Trade Name Freq PRN Reason Stop Dose Admin Acetaminophen 500 mg 11/08/25 11:09 11/08/25 15:20 Acetaminophen 500 Mg Tab PO 12/08/25 11:08 500 mg Q4H PRN PRN Administration Tranexamic Acid/Sodium Chloride 1,000 mg in 100 mls @ 600 mls/hr 11/08/25 08:45 11/08/25 09:04 IVPB 600 mls/hr PREOP MOI Administration Ringer's Solution 1,000 mls @ 125 mls/hr 11/08/25 09:30 11/08/25 10:51 IV 125 mls/hr INFUSION MOI Infusion IV IV Catheter Type [Left Peripheral IV Antecubital] IV Catheter Gauge [Left 18 Antecubital] Diet Orders Category Date Time Status Regular/Normal [DIET] Nutrition 11/08/25 Lunch Active Diagnostics 11/08/25 11/08/25 11/08/25 Range/Units 16:00 08:59 08:54 WBC Pending 6.77 (4.4-10.8) 10^3/uL RBC Pending 3.63 L (3.93-5.22) 10^6/uL Hgb Pending 11.4 (11.2-15.7) g/dL Hct Pending 32.8 L (36.0-46.0) % MCV Pending 90 (80-95) fL MCH Pending 31.4 (27.0-33.0) pg MCHC Pending 34.8 (32.0-36.0) % RDW Pending 11.9 (11.7-14.6) % Plt Count Pending 216 (130-400) 10^3/uL MPV Pending 10.0 (8.0-11.0) fL Immature Gran % 0.6 % Neutrophils % 76.3 % Lymphocytes % 16.5 % Monocytes % 5.9 % Eosinophils % 0.6 % Basophils % 0.1 % Nucleated RBC % 0.0 (0.0-0.3) % Absolute Neutrophils 5.16 (1.2-6.7) 10^3/uL Absolute Lymphocytes 1.12 L (1.2-3.4) 10^3/uL Absolute Monocytes 0.40 (0.1-0.8) 10^3/uL Absolute Eosinophils 0.04 (0.0-0.7) 10^3/uL Absolute Basophils 0.01 (0.0-0.2) 10^3/uL PT 10.1 (9.1-11.1) sec INR 1.0 (0.9-1.1) APTT 22.7 (20.6-30.2) sec VBG pH 7.41 (7.31-7.41) VBG pCO2 37 L (41-51) mmHg VBG pO2 22 mmHg VBG HCO3 23 (23-28) mmol/L VBG Total CO2 22 L (24-29) mmol/L VBG O2 Saturation 35 % VBG Base Excess -1 (-2-3) mmol/L VBG Lactate 1.9 (<or=2.0) mmol/L Sodium 135 L (136-145) mmol/L Potassium 3.5 (3.5-5.1) mmol/L Chloride 102 (98-107) mmol/L Carbon Dioxide 23.3 (20.0-31.0) mmol/L Anion Gap 9.7 (3-11) mmol/L BUN 9 (9-23) mg/dL Creatinine 0.69 (0.55-1.02) mg/dL Est GFR (CKD-EPI 2020) 93.07 (mL/min/1.73m2) Glucose 152 H (74-106) mg/dL Calcium 8.6 (8.3-10.6) mg/dL Total Bilirubin 0.6 (0.2-1.2) mg/dL AST 24 (<34) U/L ALT 24 (10-49) U/L Alkaline Phosphatase 62 (46-116) U/L Total Protein 6.7 (5.7-8.2) g/dL Albumin 4.2 (3.2-5.0) g/dL HCG, Quant (1.5-4.2) mIU/mL ABO/Rh O Positive Antibody Screen NEGATIVE Crossmatch See Detail 11/08/25 Range/Units 08:42 WBC (4.4-10.8) 10^3/uL RBC (3.93-5.22) 10^6/uL Hgb (11.2-15.7) g/dL Hct (36.0-46.0) % MCV (80-95) fL MCH (27.0-33.0) pg MCHC (32.0-36.0) % RDW (11.7-14.6) % Plt Count (130-400) 10^3/uL MPV (8.0-11.0) fL Immature Gran % % Neutrophils % % Lymphocytes % % Monocytes % % Eosinophils % % Basophils % % Nucleated RBC % (0.0-0.3) % Absolute Neutrophils (1.2-6.7) 10^3/uL Absolute Lymphocytes (1.2-3.4) 10^3/uL Absolute Monocytes (0.1-0.8) 10^3/uL Absolute Eosinophils (0.0-0.7) 10^3/uL Absolute Basophils (0.0-0.2) 10^3/uL PT (9.1-11.1) sec INR (0.9-1.1) APTT (20.6-30.2) sec VBG pH (7.31-7.41) VBG pCO2 (41-51) mmHg VBG pO2 mmHg VBG HCO3 (23-28) mmol/L VBG Total CO2 (24-29) mmol/L VBG O2 Saturation % VBG Base Excess (-2-3) mmol/L VBG Lactate (<or=2.0) mmol/L Sodium (136-145) mmol/L Potassium (3.5-5.1) mmol/L Chloride (98-107) mmol/L Carbon Dioxide (20.0-31.0) mmol/L Anion Gap (3-11) mmol/L BUN (9-23) mg/dL Creatinine (0.55-1.02) mg/dL Est GFR (CKD-EPI 2020) (mL/min/1.73m2) Glucose (74-106) mg/dL Calcium (8.3-10.6) mg/dL Total Bilirubin (0.2-1.2) mg/dL AST (<34) U/L ALT (10-49) U/L Alkaline Phosphatase (46-116) U/L Total Protein (5.7-8.2) g/dL Albumin (3.2-5.0) g/dL HCG, Quant 1901 H (1.5-4.2) mIU/mL ABO/Rh Antibody Screen Crossmatch Intake and Output - 24 Hour Total 11/08/25 08:40 thru 11/08/25 12:18 Intake Total 800 Output Total 500 Balance 300 Weight 74.4 kg Intake: IV 800 Output: Urine 500 Other: Urine Color Yellow [place] Urine Appearance Clear Urine Odor None Emesis Description None Falls Risk Assessment History of Falls No History 11/08/25 11:52 Contributing Factors No Factors 11/08/25 11:52 Ambulatory Aids Independent 11/08/25 11:52 Tubes/Lines None 11/08/25 11:52 Gait Evaluation No gait disturbance 11/08/25 11:52 Cognition No cognitive impairment 11/08/25 11:52 Fall Total Score 0 11/08/25 11:52 Level of Risk Standard/Low Risk 11/08/25 11:52 Problems (Last Reviewed 11/08/25 @ 09:33 by Luci Miles DO) Incomplete miscarriage (Acute) Incomplete (Acute) Notes 11/08/25 12:22 Nursing Notes by Marva Grant Nursing Note: At 11:30 am pt received from [facility] via stretcher Report received from Kaelyn [place] pt assisted to the bed VSS pt alert and oriented x 4 pt has slight cramping BS present lungs clear insentive at bedside pt tolerating clears tolerating regular diet no n/v pt voided 500cc of pink tinged urine clifton pad changed for a small amt of dark blood no clots family at bedside call lew at side safety maintained VSS Initialized on 11/08/25 12:22 - END OF NOTE Attestation Statement: By documenting the first initial, last name, and credentials of the reporting nurse below, both parties acknowledge that all relevant information regarding the patient handoff has been communicated, and that all questions have been addressed to ensure continuity and safety of care. Additional Patient Information/Comments: Report Received From: surgical handoff
--- NOTE | 2025-11-08 16:05 | INITIAL_ITS ---
Date of service: 11/08/25 Time of Service: 16:05 Care Management Initial Assmt Functional Status/Living Situation Patient Presentation: Sultana lives in [facility] with her Mehdi and their 4 year old son. 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 Sultana is admitted for complications surrounding an incomplete miscarriage which required surgical intervention in the OR. Patient denies needs at this time. CM will follow. Town of Residence: [facility]) Resides with: Spouse ( Mehdi) Significant Other/Family: Local Natural Supports: Mehdi Ochoa Mother Joanna Moane Employment Status: Unemployed Instrumental Activities of Daily Living (ADLs): Independent Medications Medication Management: No Issues/Barriers identified Physical Functioning/Mobility Assistive Device: None Advance Directives Advance Directives: Do you have an Advance Directive: N , 08:45 AD On File at [facility]: N 08/21/24, 08:45 Date Asked 11/08/25 11/08/25, 11:36 AD Date Reviewed COLST On File at [facility] COLST Date Scanned Code Status Resuscitation Status Full Code Insurance Coverage/Financial Issues Insurance: Medicaid of [place] - [id number] Financial Issues: None identified, receives state medical and food benefits. Has worked with a CHW at [facility] in the past, per pt. Care Team Visit Care Team Role Provider Type Mauricio Solomon Primary Care Provider NON-[facility] STAFF PHYSICIAN Freddy Díaz MD Emergency Provider [facility] STAFF PHYSICIAN Luci Miles, DO Admit Provider OSTEOPATHIC DOCTOR Attending Provider Discharge Potential Discharge Needs: PCP F/U Appt and Other ([facility] Follow up) Anticipated Barriers to Discharge: None Identified Patient/Family Education Needs: Review discharge instructions, discuss Ask Me Three Transportation: Private vehicle Plan: Anticipate, Sultana will discharge home via private vehicle with family, once medically ready. Patient will follow up with community providers and continue per her discharge plan of care. No new services are anticipated at this time. CM will follow. Social Determinants of Health Screening Social Determinants of health last assessed in clinic: 11/09/25 Will the Patient Participate in the Screening?: Yes Do you worry about having a steady place to live?: no Problems where you live: no known problems In the past 12 months, have you had to go without electric, gas, oil or water in your home?: no 1. Within the past 12 months, we worried whether our food would run out before we got money to buy more.: Never true 2. Within the past 12 months, the food we bought just didn't last and we didn't have money to get more.: Never true Has lack of transportation kept you from medical appointments or from doing thi ngs needed for daily living?: no Has anyone in your life made you feel unsafe or unsupported?: no How hard is it for you to pay for the very basics like food, housing, medical care, and heating? Would you say it is:: Not hard at all Do you want help finding or keeping work or a job?: I do not need or want help If for any reason you need help with day-to-day activities such as bathing, preparing meals, shopping, managing finances, etc., do you get the help you need?: I don?t need any help How often do you feel lonely or isolated from those around you?: Never Do you speak a language other than Cuban at home?: No Does the patient want assistance with any of the above?: No PFSH All Active Problems (Updated 11/08/25 @ 09:36 by Luci Miles DO) Incomplete miscarriage (Acute) Incomplete (Acute) (Acute) Bundle branch block, right (Acute) Abnormal bowel movement (Acute) Flushing (Acute) Hypertension (Chronic) History of stillbirth (Acute) Anxiety (Chronic) Medical History hypertension Preeclampsia demise, greater than 22 weeks, antepartum Full-term demise Vaginal delivery 08/22/2024. Term stillbirth. Labor induction Social History Smoking/Tobacco Use Status: Never Smoking risk assessment performed?: Yes Alcohol Intake: never Substance use type: does not use Household members: spouse, children and other Details: H - Mehdi, S - Joe Housing: house Number of Children: 1 Education Level: college Do you need help understanding health information?: Never current occupation: [employer]. Do you feel safe at home: Yes Do you feel safe in your relationship?: Yes History History 4 Para 1 Hx # Term Pregnancies 2 Multiple births Hx # Pregnancies Ectopic pregnancies AB induced 1 Hx Number of Living Children 1 AB spontaneous 1 Past Pregnancies Del. Date GA/Weeks # Preg Succ Route Wgt Sex Labor Lgth Anesth esia Location Prov Complic 01/11/19 8 02/11/21 40 No Yes vaginal 3345.244 g Male 20hrs 08/22/24 No No vaginal Female Mildred Medina son 02/28/25 6 No No Delivery Date: 01/11/19 Last Updated by: Teresa Ray MD ETOP Delivery Date: 02/11/21 Last Updated by: Teresa Ray MD Home , pushed 1.5hrs Joe Delivery Date: 08/22/24 Last Updated by: Yareli Ahumada MD IUFD at 39w6d. ? cord accident. Placental path pending. No autopsy performed. Delivery Date: 02/28/25 Last Updated by: Mildred Ramirez LPN miscarriage
[2025-11-08 16:31] LABS: HCT 29.4 % (36.0-46.0); HGB 10.2 g/dL (11.2-15.7); MCH 31.0 pg (27.0-33.0); MCHC 34.7 % (32.0-36.0); MCV 89 fL (80-95); MPV 9.9 fL (8.0-11.0); Platelet Count 178 10^3/uL (130-400); RBC 3.29 10^6/uL (3.93-5.22); RDW 11.7 % (11.7-14.6); RDW-SD 37.9 fL; WBC 10.10 10^3/uL (4.4-10.8)
[2025-11-08] MEDS: Doxycycline Hyclate 100 MG CAP PO (20:28)
--- NOTE | 2025-11-08 22:35 | PGE_ITS ---
Date of Service Date of service: 11/08/25 Time of Service: 17:00 Assessment and Plan Assessment and plan (1) Incomplete miscarriage: Status: Acute Assessment and plan: Patient s/p suction D&C this morning for incomplete SAB. Pocedure completed without issue. Patient seen at bedside and reports feeling overall, well; though she is nervous because she lives a good distance from the hospital and her transportation is limited. She had a temp just above 99 earlier in the late morning and states around that time, she felt modestly, off. Right now she is feeling ok. Meeting all milestones appropriately. Will continue abx and monitor through the evening. Subjective Subjective Interval history since last seen: S/P suction D&C for incomplete SAB. F/U bloodwork reassuringly stable this afternoon. Reports feeling a little less than herself but otherwise well. Pain well controlled without pain medications. Ambulating, urinating, and eating all without issue. Bleeding scant. Exam Const General: cooperative and healthy appearing Nutritional Appearance: average body habitus and well nourished HENMT Head: normal to inspection Resp Effort & Inspection: normal respiratory effort and able to speak in complete sentences GI Palpation: soft Other: No palpable tenderness Extrem Other: No swelling Psych Mood: congruent mood Affect: normal affect Objective Last Vital Signs Temp 99.9 F H 11/08/25 19:28 Pulse 74 11/08/25 19:28 Resp 16 11/08/25 19:28 BP 113/63 11/08/25 19:28 Pulse Ox 98 11/08/25 19:28 Laboratory Results - last 24 hr 11/08/25 11/08/25 11/08/25 08:42 08:54 08:59 WBC 6.77 RBC 3.63 L Hgb 11.4 Hct 32.8 L MCV 90 MCH 31.4 MCHC 34.8 RDW 11.9 Plt Count 216 MPV 10.0 Immature Gran % 0.6 Neutrophils % 76.3 Lymphocytes % 16.5 Monocytes % 5.9 Eosinophils % 0.6 Basophils % 0.1 Nucleated RBC % 0.0 Absolute Neutrophils 5.16 Absolute Lymphocytes 1.12 L Absolute Monocytes 0.40 Absolute Eosinophils 0.04 Absolute Basophils 0.01 PT 10.1 INR 1.0 APTT 22.7 VBG pH 7.41 VBG pCO2 37 L VBG pO2 22 VBG HCO3 23 VBG Total CO2 22 L VBG O2 Saturation 35 VBG Base Excess -1 VBG Lactate 1.9 Sodium 135 L Potassium 3.5 Chloride 102 Carbon Dioxide 23.3 Anion Gap 9.7 BUN 9 Creatinine 0.69 Est GFR (CKD-EPI 2020) 93.07 Glucose 152 H Calcium 8.6 Total Bilirubin 0.6 AST 24 ALT 24 Alkaline Phosphatase 62 Total Protein 6.7 Albumin 4.2 HCG, Quant 1901 H ABO/Rh O Positive Antibody Screen NEGATIVE Crossmatch See Detail 11/08/25 16:20 WBC 10.10 RBC 3.29 L Hgb 10.2 L Hct 29.4 L MCV 89 MCH 31.0 MCHC 34.7 RDW 11.7 Plt Count 178 MPV 9.9 Immature Gran % Neutrophils % Lymphocytes % Monocytes % Eosinophils % Basophils % Nucleated RBC % Absolute Neutrophils Absolute Lymphocytes Absolute Monocytes Absolute Eosinophils Absolute Basophils PT INR APTT VBG pH VBG pCO2 VBG pO2 VBG HCO3 VBG Total CO2 VBG O2 Saturation VBG Base Excess VBG Lactate Sodium Potassium Chloride Carbon Dioxide Anion Gap BUN Creatinine Est GFR (CKD-EPI 2020) Glucose Calcium Total Bilirubin AST ALT Alkaline Phosphatase Total Protein Albumin HCG, Quant ABO/Rh Antibody Screen Crossmatch VTE Prohylaxis Risk Level: Moderate/High Risk Contraindications: Active bleed/high bleed risk Prophylaxis: Mechanical and Patient ambulatory Time Spent with Patient Time Spent with Patient: 35-49 minutes Time was spent: preparing to see the patient(eg.review tests), obtaining and/or reviewing separately otained hiistory, ordering medications,tests, procedures, referring, communicating with other health care management coordinator, indepentently interpreting results and counseling the patient
[2025-11-09] VITALS (9 sets, daily range): BP systolic 108–128; BP diastolic 67–75; PULSE 63–85; RESP 12–16; TEMP 36.1–37.8; O2SAT 98–100
[2025-11-09] MEDS: Doxycycline Hyclate 100 MG CAP PO ×2 (09:05→18:05)
[2025-11-09] MEDS: Citalopram 20 MG TAB 10 MG PO (09:05)
[2025-11-09 10:09] LABS: Abs Immature Grans 0.02 10^3/uL (0.0-0.06); HCT 26.4 % (36.0-46.0); HGB 9.3 g/dL (11.2-15.7); Immature Grans % 0.3 %; MCH 31.1 pg (27.0-33.0); MCHC 35.2 % (32.0-36.0); MCV 88 fL (80-95); MPV 9.9 fL (8.0-11.0); Platelet Count 172 10^3/uL (130-400); RBC 2.99 10^6/uL (3.93-5.22); RDW 11.9 % (11.7-14.6); RDW-SD 38.6 fL; WBC 5.80 10^3/uL (4.4-10.8)
[2025-11-09] MEDS: AMPICILLIN SODIUM 2 GM in Normal Saline 100 ML IVPB (11:33)
--- NOTE | 2025-11-09 13:08 | PGE_ITS ---
Date of Service Date of service: 11/09/25 Time of Service: 13:13 Assessment and Plan Assessment and plan (1) Incomplete miscarriage: Status: Acute Assessment and plan: 40 yo -0-3-1 ( x 2, stillbirth x 1) status post suction dilation and curettage performed 11/08/2025 for incomplete miscarriage of 7-week fetus (procedure performed at 11 weeks gestation) - H/O, rBBB, cHTN, anxiety - Rh+ - Hgb: 11.4 (pre-op), 10.2 (post-op), 9.3 - Abx: Doxycycline 100 mg BID, one-time dose 2 g Ampicillin - - - - - - - - - - - - - - - 11/08/2025 at 1900 ([facility]): S/P suction D&C for incomplete SAB. F/U bloodwork reassuringly stable this afternoon. Reports feeling a little less than herself but otherwise well. Pain well controlled without pain medications. Ambulating, urinating, and eating all without issue. Bleeding scant. Patient s/p suction D&C this morning for incomplete SAB. Pocedure completed without issue. Patient seen at bedside and reports feeling overall, well; though she is nervous because she lives a good distance from the hospital and her transportation is limited. She had a temp just above 99 earlier in the late morning and states around that time, she felt modestly, off. Right now she is feeling ok. Meeting all milestones appropriately. Will continue abx and monitor through the evening. 11/09/2025 at 1200 ([facility]): Frequency of temperature checks were increased last night to every 4. Patient was afebrile overnight with tympanic testing; however, this morning, while she remains afebrile, she once again had an increase in her temperature to just above 99 (via tympanic testing) which coincided with complaints from the patient feeling less well, again. A CBC was repeated, and her white count remains low; her hemoglobin is appropriate. However, given the clinical status of the patient and the patient's complaints coinciding with the elevations in her temperature, I ordered a dose of IV ampicillin to be administered, which she received earlier this morning. I walked into find the patient sitting up in bed and in good spirits, though tired. Patient endorsed feeling less well this morning than overnight. She reported feeling woozy and somewhat presyncopal as well as feverish. She reports that she has been feeling better in the last hour or so and her appetite is better this afternoon. She has been ambulating, urinating, and eating without issue, though a decrease in her appetite did coincide with her temp this morning. The patient and I discussed monitoring her throughout the afternoon. If her temperatures have stabilized and she is feeling okay this evening, then we will plan for discharge with close follow-up. However if she continues to have modest increases with temperature coinciding with concerns for infection, we may broaden out her antibiotics still. Patient is in agreement with this plan. Encouraged to continue ambulation, get up into rocking chair when not ambulating, and to hydrate. - - - - - - - - - - - - - - - Subjective Subjective Patient reports: no new complaints Exam Const General: cooperative and no acute distress Orientation: alert and awake HENMT Head: normocephalic Resp Effort & Inspection: normal respiratory effort and able to speak in complete sentences GI Other: soft, non-distended. One is nontender even with deep palpation. Neuro General: patient alert and patient awake Extrem Other: no evidence of pathological edema Psych Mood: congruent mood Affect: normal affect Objective Last Vital Signs Temp 99.3 F 11/09/25 10:51 Pulse 71 11/09/25 10:51 Resp 16 11/09/25 10:51 BP 122/69 11/09/25 10:51 Pulse Ox 98 11/09/25 10:51 Laboratory Results - last 24 hr 11/08/25 11/09/25 16:20 10:00 WBC 10.10 5.80 RBC 3.29 L 2.99 L Hgb 10.2 L 9.3 L Hct 29.4 L 26.4 L MCV 89 88 MCH 31.0 31.1 MCHC 34.7 35.2 RDW 11.7 11.9 Plt Count 178 172 MPV 9.9 9.9 Immature Gran % 0.3 Neutrophils % 74.4 Lymphocytes % 19.0 Monocytes % 5.2 Eosinophils % 0.9 Basophils % 0.2 Nucleated RBC % 0.0 Absolute Neutrophils 4.32 Absolute Lymphocytes 1.10 L Absolute Monocytes 0.30 Absolute Eosinophils 0.05 Absolute Basophils 0.01 VTE Prohylaxis Risk Level: Moderate/High Risk Contraindications: Active bleed/high bleed risk Prophylaxis: Mechanical and Patient ambulatory Time Spent with Patient Time Spent with Patient: 25-34 minutes Time was spent: preparing to see the patient(eg.review tests), obtaining and/or reviewing separately otained hiistory, ordering medications,tests, procedures, referring, communicating with other health housekeeper child care, indepentently interpreting results and counseling the patient
[2025-11-09 17:00] LABS: RSV PCR Negative (Negative)
[2025-11-09 17:03] LABS: COVID-19 PCR Positive (Negative)
--- NOTE | 2025-11-09 17:41 | DSE_ITS ---
Date of service: 11/09/25 Time of Service: 17:41 DS: Diagnosis Discharge Diagnosis (1) Incomplete miscarriage: Status: Acute Discharge Plan Disposition Condition: Good Condition: Good Discharge Details Reason For Visit: incomplete sab Admit Date/Time: 11/08/25 11:09 Admit Provider: Luci Miles Attending Provider: Luci Miles Primary Care Provider: [place] [facility] Hospital Course: 40 yo -0-3-1 ( x 2, stillbirth x 1) status post suction dilation and curettage performed 11/08/2025 for incomplete miscarriage of 7-week fetus (procedure performed at 11 weeks gestation) - H/O, rBBB, cHTN, anxiety - Rh+ - Hgb: 11.4 (pre-op), 10.2 (post-op), 9.3 - Abx: Doxycycline 100 mg BID, one-time dose 2 g Ampicillin - - - - - - - - - - - - - - - 40-year-old G5 now [id number] presented to our hospital via the emergency department for vaginal hemorrhage. She was noted to be 11 weeks ; however, she had been diagnosed with an incomplete miscarriage at 7 weeks gestation (approximately 4 weeks prior). She underwent an immediate suction dilation curettage which was performed without issue. She was hospitalized for observation following the procedure given the extent of her bleeding. Her hemoglobin remained reassuring; however, she had minor elevations in her te mperature periodically with waves of feeling ill. Doxycycline 100 mg twice daily was continued throughout the course of her stay and she did ultimately receive 1 dose of 2 mg of IV ampicillin due to continuation of her elevated temperatures. She was ultimately tested for seasonal viruses, and she was found to be positive for COVID. It was determined that her mild temperature elevations was attributed to the COVID and not her recent incomplete SAB. She was discharged with instructions to continue the doxycycline and have close follow-up. She was sent home with enough doxycycline to get her through the next 24 hours in order to facilitate getting to a pharmacy. She was advised to have a low threshold for immediate medical reevaluation if further concerns arose. - - - - - - - - - - - - - - - Home Meds and New Rx's Prescriptions: New doxycycline hyclate 100 mg Capsule 100 mg PO Q12H 7 Days Qty: 14 0RF Continued magnesium 200 mg tablet 400 mg PO DAILY [id number] [Fioricet] 50-300-40 mg capsule 1 cap PO Q8H PRN (Reason: pain) Qty: 20 0RF citalopram [Celexa] 10 mg tablet 10 mg PO DAILY Discharge Instructions Instructions: Dilation and curettage (D&C), COVID-19 in adults - Discharge instructions Additional Instructions: ? Eat a well-rounded diet ? Ambulate regularly and engage in light activity while avoiding repeated heavy lifting (over 10 pounds) ? Take your medications as prescribed ? Please be sure to attend your follow-up visits ? If you have an incision, be sure to keep it clean and dry using simple soap and water; avoid scrubbing to avoid damage to suture ? If you have been prescribed narcotics such as tramadol or oxycodone or Magnolia, please note these medications have an addictive potential and should be used sparingly. Please discard of any leftover medication either with your local pharmacy or by flushing the medication. Do not share these medications with o ther individuals, and have a low threshold for seeking immediate medical evaluation if you experience any sleepiness, headaches, or any other concerns while using these medications. ? Please do not insert anything vaginally, including but not limited to, tampons, douching, or sexual intercourse, for a full 8 weeks and/or until you are medically cleared. ? If you have any concerns including fevers/chills, lightheadedness, visual changes, persistent headaches unresponsive to Tylenol, persistent nausea/vomiting, persistent abdominal pain, bruising and or leakage from your incision sites, excessive vaginal bleeding, or any other concerns, please have a low threshold for seeking immediate medical evaluation and/or reaching out to our clinic at [phone]. Take 100 mg (1 tablet) of doxycycline twice a day for 7 days. Activity:: Pelvic rest x 6 weeks Activity:: Pelvic rest x 6 weeks Equipment/Supplies:: No Equipment Needed Diet:: Normal Diet DS: Summary Time Spent with Patient providing and/or coordinating discharge services: Greater than 30 minutes Status at Discharge Functional status at discharge: independent ambulation Overall status at discharge: patient is progressing back to baseline Mental Status: mental status grossly normal Speech and Movement: speech and movement normal Mood: congruent mood Affect: normal affect Exam Psych Mental Status: mental status grossly normal Speech and Movement: speech and movement normal Mood: congruent mood Affect: normal affect DS: Data Vitals/I&O Vitals and I&O: Vital Signs Temperature 99.4 F 11/09/25 16:55 Temperature Source Tympanic 11/09/25 16:55 Pulse 80 11/09/25 15:00 Pulse Rhythm Regular 11/08/25 11:52 Pulse 81 11/08/25 11:15 Respiratory Rate 12 11/09/25 15:00 Respiratory Effort Normal 11/08/25 11:52 Respiratory Depth Normal 11/08/25 11:52 Respiratory Pattern Normal 11/08/25 11:52 Blood Pressure 108/67 11/09/25 15:00 Blood Pressure Mean 80 11/09/25 15:00 Pulse Oximetry 98 11/09/25 15:00 Oxygen Delivery Method Room Air 11/09/25 15:00 Oxygen Flow Rate 0 11/09/25 15:00 Pain Level 0 11/09/25 15:00 Intake & Output 11/08/25 11/09/25 11/09/25 23:59 11:59 23:59 Intake Total 20 / 820 580 / 680 100 / 680 Output Total 2900 / 2900 3500 / 4100 600 / 4100 Balance -2880 / -2080 -2920 / -3420 -500 / -3420 Intake: IV 20 / 820 400 / 500 100 / 500 Oral 180 / 180 Output: Urine 2900 / 2900 3500 / 4100 600 / 4100 Other: Urine Color Pale Pale Yellow Yellow Urine Appearance Clear Clear Clear Urine Odor None Normal Normal Data Completed and Pending Pending Labs at Discharge: 11/08/25 11/08/25 11/08/25 08:42 08:54 08:59 WBC 6.77 RBC 3.63 L Hgb 11.4 Hct 32.8 L MCV 90 MCH 31.4 MCHC 34.8 RDW 11.9 Plt Count 216 MPV 10.0 Immature Gran % 0.6 Neutrophils % 76.3 Lymphocytes % 16.5 Monocytes % 5.9 Eosinophils % 0.6 Basophils % 0.1 Nucleated RBC % 0.0 Absolute Neutrophils 5.16 Absolute Lymphocytes 1.12 L Absolute Monocytes 0.40 Absolute Eosinophils 0.04 Absolute Basophils 0.01 PT 10.1 INR 1.0 APTT 22.7 VBG pH 7.41 VBG pCO2 37 L VBG pO2 22 VBG HCO3 23 VBG Total CO2 22 L VBG O2 Saturation 35 VBG Base Excess -1 VBG Lactate 1.9 Sodium 135 L Potassium 3.5 Chloride 102 Carbon Dioxide 23.3 Anion Gap 9.7 BUN 9 Creatinine 0.69 Est GFR (CKD-EPI 2020) 93.07 Glucose 152 H Calcium 8.6 Total Bilirubin 0.6 AST 24 ALT 24 Alkaline Phosphatase 62 Total Protein 6.7 Albumin 4.2 HCG, Quant 1901 H COVID-19 Source SARS-CoV-2 (PCR) Influenza Type A (PCR) Influenza Type B (PCR) RSV (PCR) ABO/Rh O Positive Antibody Screen NEGATIVE Crossmatch See Detail 11/08/25 11/09/25 11/09/25 16:20 10:00 16:15 WBC 10.10 5.80 RBC 3.29 L 2.99 L Hgb 10.2 L 9.3 L Hct 29.4 L 26.4 L MCV 89 88 MCH 31.0 31.1 MCHC 34.7 35.2 RDW 11.7 11.9 Plt Count 178 172 MPV 9.9 9.9 Immature Gran % 0.3 Neutrophils % 74.4 Lymphocytes % 19.0 Monocytes % 5.2 Eosinophils % 0.9 Basophils % 0.2 Nucleated RBC % 0.0 Absolute Neutrophils 4.32 Absolute Lymphocytes 1.10 L Absolute Monocytes 0.30 Absolute Eosinophils 0.05 Absolute Basophils 0.01 PT INR APTT VBG pH VBG pCO2 VBG pO2 VBG HCO3 VBG Total CO2 VBG O2 Saturation VBG Base Excess VBG Lactate Sodium Potassium Chloride Carbon Dioxide Anion Gap BUN Creatinine Est GFR (CKD-EPI 2020) Glucose Calcium Total Bilirubin AST ALT Alkaline Phosphatase Total Protein Albumin HCG, Quant COVID-19 Source Nasopharynx SARS-CoV-2 (PCR) Positive A Influenza Type A (PCR) Negative Influenza Type B (PCR) Negative RSV (PCR) Negative ABO/Rh Antibody Screen [facility] Active Problems COVID (Acute) Incomplete miscarriage (Acute) Incomplete (Acute) (Acute) Bundle branch block, right (Acute) Abnormal bowel movement (Acute) Flushing (Acute) Hypertension (Chronic) History of stillbirth (Acute) Anxiety (Chronic) Medical History hypertension Preeclampsia demise, greater than 22 weeks, antepartum Full-term demise Vaginal delivery 08/22/2024. Term stillbirth. Labor induction Social History Smoking/Tobacco Use Status: Never Smoking risk assessment performed?: Yes Alcohol Intake: never Substance use type: does not use Household members: spouse, children and other Details: H - Mehdi, S - Joe Housing: house Number of Children: 1 Education Level: college Do you need help understanding health information?: Never current occupation: [employer]. Do you feel safe at home: Yes Do you feel safe in your relationship?: Yes History History 4 Para 1 Hx # Term Pregnancies 2 Multiple births Hx # Pregnancies Ectopic pregnancies AB induced 1 Hx Number of Living Children 1 AB spontaneous 1 Past Pregnancies Del. Date GA/Weeks # Preg Succ Route Wgt Sex Labor Lgth Anesth esia Location Prov Complic 01/11/19 8 02/11/21 40 No Yes vaginal 7 lb 6 oz Male 20hrs 08/22/24 No No vaginal Female Mildred Medina son 02/28/25 6 No No Delivery Date: 01/11/19 Last Updated by: Teresa Ray MD ETOP Delivery Date: 02/11/21 Last Updated by: Teresa Ray MD Home , pushed 1.5hrs Joe Delivery Date: 08/22/24 Last Updated by: Yareli Ahumada MD IUFD at 39w6d. ? cord accident. Placental path pending. No autopsy performed. Delivery Date: 02/28/25 Last Updated by: Mildred Ramirez LPN miscarriage Time Spent with Patient Time Spent with Patient: 45-69 minutes Time was spent: preparing to see the patient(eg.review tests), obtaining and/or reviewing separately otained hiistory, ordering medications,tests, procedures, referring, communicating with other health animal care taker, indepentently interpreting results, counseling the patient and care coordination
[2025-11-09] MEDS: Doxycycline Hyclate 100 MG CAP 300 MG PO (18:05)
== END 2025-11-09 18:39 | disposition home or self-care (01) ==
LOC: ER 09:10 → SUR 09:39 → MS 11:36
PROVIDERS: Admitting Provider Obstetrics & Gynecology; Emergency Provider General Practice; PCP Naturopath; Visit Provider Obstetrics & Gynecology
PROC: (CPT 59812; principal; 2025-11-08 09:30)
DX: O03.4 Incomplete spontaneous abortion without complication (principal); U07.1 COVID-19; Z3A.11 11 weeks gestation of pregnancy; I45.10 Unspecified right bundle-branch block; I10 Essential (primary) hypertension; F41.9 Anxiety disorder, unspecified; R50.9 Fever, unspecified
CPT/HCPCS: 59812; 36415; 80053; 82805; 85027; 86850; 86900; 86901; 86920; 87637; 88305; 96365; 99285; 83605; 84702; 85025; 85610; 85730; G0378; J0131; J0290; J1100; J1885; J2003; J2371; J2405; J2704; J3010; P9016